=== PATIENT | female | born 1950 | race Caucasian/White ===

== ENCOUNTER → 2016-05-19 | Outpatient (CLI) | payer MEDICARE, BC ==
[~2016-05-19] MED LIST: /ALEN70TA OR; /FEXO60TA OR; /TIOT18INH INH; ALBU17IN INH; ALBU17IN2 INH; ALLE60TA69 PO; ALTA10CA OR; ALTA10CA3 PO; ASPI81TA85 PO; BIOT50004 PO; Cellcept; DULE200A INH; FLUT05CR TOP; FOLI5CAP OR; HYDR-2808 PO; KETO-28 PO; LEVAQUIN PO; LUNE1TAB5 PO; MELA1TAB15 PO; MOME50SP; MULT1TAB9 PO; MYFO360T PO; NAPR500T81 OR; NASONEX; OMEP40CA2 PO; ONDA4TAB6 PO; PRED10TA2 PO; PRED20TA OR; PRED20TA PO; PRED50TA PO; PRIL20CA OR; Plaquenil; RANI1TAB38 PO; SING10TA31 OR; SING10TA32 PO; SPIR1CAP INH; SYMB80AE INH; VICO5TAB PO; VITA-112 PO; VITA400C97 PO; ZANT300T OR; ZANTTAB PO; ZETI10TA2 PO; [UNRECOGNIZED DRUG - CODE] PO
[2016-05-19 12:28] LABS: MEAN CORPUSCULAR HEMOGLOBIN 26.1 pg (27.0-33.0); MEAN CORPUSCULAR HGB CONC 34.1 g/dl (32.0-36.5); MEAN CORPUSCULAR VOLUME 76.6 fl (80.0-96.0); RED CELL DISTRIBUTION WIDTH 14.2 % (11.5-14.5)
[2016-05-19 12:39] LABS: INR 0.95
[2016-05-19 13:20] LABS: ALBUMIN 3.6 GM/DL (3.2-5.2); ALKALINE PHOSPHATASE 138 U/L (45-117); ALT/SGPT 24 U/L (12-78); ANION GAP 9 MEQ/L (8-16); AST/SGOT 16 U/L (15-37); BILIRUBIN,TOTAL 0.3 MG/DL (0.2-1.0); BLOOD UREA NITROGEN 7 MG/DL (7-18); CALCIUM LEVEL 8.8 MG/DL (8.8-10.2); CARBON DIOXIDE LEVEL 26 MEQ/L (21-32); CHLORIDE LEVEL 100 MEQ/L (98-107); CREATININE FOR GFR 0.61 MG/DL (0.55-1.02); GLOMERULAR FILTRATION RATE > 60.0 (>45); GLUCOSE, FASTING 111 MG/DL (80-110); POTASSIUM SERUM 4.3 MEQ/L (3.5-5.1); SODIUM LEVEL 135 MEQ/L (136-145); TOTAL PROTEIN 7.2 GM/DL (6.4-8.2)
== END ==
LOC: M ADMPAT 10:37
PROVIDERS: ATTEND Orthopaedic Surgery
DX: M12.862 Other specific arthropathies, not elsewhere classified, left knee (principal); Z79.01 Long term (current) use of anticoagulants; Z79.899 Other long term (current) drug therapy; Z01.818 Encounter for other preprocedural examination

== ENCOUNTER 2016-06-02 08:41 | Inpatient (IN) | payer MEDICARE, BC ==
--- NOTE | 2016-05-30 11:15 | HPE ---
DATE OF SCHEDULED ADMISSION: 06/02/2016 ATTENDING PHYSICIAN: Jagruti Olivares MD CHIEF COMPLAINT: Left knee pain and stiffness. HISTORY: Eri is a pleasant, 65-year-old female with progressively worsening left knee pain and stiffness. She has failed to improve with conservative management. She has elected for surgery for her continued symptoms with weight bearing activities and activities of daily living. She has consented for a left total knee arthroplasty by Dr. Aguiar. Medical optimization pending with Dr. Sahu. It is not present for review today. CURRENT MEDICATIONS: - Skelaxin 800 mg - voltaren 1% gel - Lunesta 1 mg daily - Rapamune 1 mg daily - Zetia 10 mg daily - Altace 10 mg daily - ranitidine 300 mg daily - Sherrie 60 mg twice daily - Singulair 10 mg daily - Flonase - albuterol as needed - Premarin 0.625 mg - Metrogel - Zofran as needed ALLERGIES: AUGMENTIN, CEFTIN, TRIAMOX, PLAQUENIL, STATIN DRUGS. MEDICAL HISTORY: 1. Hypertension. 2. Hyperlipidemia 3. Lupus. 4. Asthma. 5. Allergies. SURGICAL HISTORY: Biopsies times two. SOCIAL HISTORY: Patient does live on own. Rarely consumes alcohol. She is a former smoker. Quit greater than 30 years ago. REVIEW OF SYSTEMS: Patient denies fevers, chills, nausea, vomiting or diarrhea. She denies any chest pain, shortness of breath or cough. She does have some nasal congestion from her seasonal allergies. No current urinary tract infection symptoms. She does have persistent pain in the left knee with weightbearing activities. EXAMINATION: Well-nourished, well-developed, female, in no apparent distress. She does walking with a mild limp. Inspection of the right knee reveal no erythema, edema, or ecchymosis. Her skin is intact. Patient is able to extend knee to about 0 degrees and flex to about 100 degrees. No hip irritability was elicited with range of motion. Her left lower extremity strength is 5/5. Her calf is soft, nontender to palpation with no palpable cords noted. Distally, she is neurovascularly intact. Neck: Supple without lymphadenopathy or jugular venous distention. Lungs: Clear to auscultation bilaterally, without rales or wheezes. Heart: Regular rate and rhythm. Abdomen: Bowel sounds are present. Vital Signs: Height 5 feet 2 inches. Weight 179 pounds. Temperature 97.9. Blood pressure 134/70. Heart rate 76. Respiratory rate 16. LABORATORY DATA: Chest x-ray shows no acute cardiopulmonary process. EKG shows a normal sinus rhythm. Her urinalysis is negative with the urine culture showing no growth of clinical significance. Her complete blood count: WBC 8, RBC slightly elevated at 5.6, hemoglobin 14.6, hematocrit 42.9, platelet count 399. Erythrocyte sedimentation rate 21. Prothrombin time 12.8. INR 0.95. Nasal and sinus culture showed normal chen. Comprehensive metabolic panel: Slightly elevated fasting glucose at 111, BUN 7, creatinine 0.61, GFR greater than 60, sodium slightly decreased at 135, potassium 4.3, chloride 100, carbon dioxide 26, anion gap 9, calcium 8.8, AST 16, ALT 24, alkaline phosphatase slightly elevated at 138, total bilirubin 0.3, total protein 7.2, albumin 3.6, albumin globulin ratio 1.00. DIAGNOSIS: Symptomatic osteoarthritis of the left knee with x-ray notable for end stage degenerative changes with bone on bone in the medial compartment. PLAN: Patient has consented for a left total knee arthroplasty by Dr. Aguiar. CHAYA
--- NOTE | 2016-05-30 16:17 | CR ---
DATE OF CONSULTATION: 05/30/2016 PREOPERATIVE EVALUATION AND CONSULTATION CONSULTING PHYSICIAN: Dr. Patricio Sahu REQUESTING PHYSICIAN: Dr. Chino Aguiar PROPOSED SURGERY: Left total knee replacement to be completed at [facility] on 06/02/2016. The patient notes that in general she is doing well overall without any new issues or concerns. It is notable that the patient does have a history of asthma and allergies and will need to be monitored closely. She does not snore; however, has had an EGD recently and was noted to be normal. She does need daily MiraLAX because of constipation. She has stopped her CellCept and Rapamune medications for her lupus and has been in consultation with her is/it project manager regarding this. She had preoperative laboratories, that we have discussed, as well as an EKG and chest x-ray, which were completed on 01/17/2016 and reviewed. The patient is now in physical therapy (PT) strengthening her legs and is doing well. She has no history of any cardiac concerns, none in the past or presently. Respiratory issues as noted. No issues with anesthesia in the past. PAST MEDICAL HISTORY: 1. Lupus, sees rheumatology. On significant immunosuppressive medications. 2. Hypertension. 3. Gastroesophageal reflux disease (GERD). 4. Allergic rhinitis. 5. History of asthma where at one point she needed prednisone, but is doing well at this point. 6. Hyperlipidemia. 7. Nausea, status post EGD with Dr. Merino on 03/25/2016. 8. Atrophic vaginitis. Follows with Dr. Li. 9. Osteopenia. PAST SURGICAL HISTORY: 1. She had a biopsy on her leg by Dr. Das in 1985. 2. Breast biopsy [place] [address] Ron. 3. Dilatation and curettage age 25 [address] Medina. 4. Blepharoplasty with Dr. Knutson in 2012. ALLERGIES: TRIMOX caused throat swelling and edema. STATINS caused muscle aches. PLAQUENIL caused temporary facial numbness. CEFTIN caused nausea, vomiting and feeling as if she had chills, as did AUGMENTIN. MEDICATIONS: - Zofran 4 mg one every six hours as needed - Prilosec 40 mg by mouth daily - tramadol 50 mg by mouth twice a day as needed for pain - Dulera 200/5 taken two puffs by mouth twice a day - Spiriva 18 mcg one inhalation daily - Singulair 10 mg by mouth at night - Sherrie 50 mg one tablet twice a day - Nasonex 50 mcg two sprays in each nostril twice a day as needed - Ventolin HFA two puffs four times a day as needed - Zantac 300 mg daily - Altace 10 mg by mouth twice a day - Zetia 10 mg daily - Lunesta 1 mg each night as needed for sleep - Premarin vaginally on a weekly basis - Flonase one spray in each nostril - Vicodin one tablet every four hours as needed for pain - allergy injections - CellCept 180 mg two tablets twice a day - Rapamune 1 mg twice a day every other day alternating with daily tablet every other day - Metrogel applied to skin daily FAMILY HISTORY: Father at age 79 of congestive heart failure (CHF). Mother of colon cancer at age 69, she also had rheumatoid arthritis and osteoarthritis severely. She had a sister who at age 16 with rheumatoid arthritis. 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 She is a former smoker, quit at age 34. She lives alone. No children. She has a large extended family. She did smoke about one pack a day for 17 years. She does not use any alcohol. REVIEW OF SYSTEMS: As per history of present illness. Otherwise, ten systems review is negative. PHYSICAL EXAMINATION: VITAL SIGNS: The patient is 178 pounds and is 5 feet 2 inches tall. Blood pressure 126/72. Heart rate 80. GENERAL: No acute distress. Nontoxic. Alert and oriented times three. She is quite pleasant and interactive. HEENT: Pupils are equal, reactive to light and accommodation. Extraocular motions are intact. No lesions of the lid or conjunctivae. Oral cavity and oropharynx are benign. Tympanic membranes are benign, as is the pinna. NECK: Supple without lymphadenopathy or thyromegaly. HEART: Regular rate and rhythm. S1, S2. No appreciable murmurs. LUNGS: Clear to auscultation bilaterally. No rales, rhonchi or wheezes whatsoever. ABDOMEN: Soft, nontender, nondistended. EXTREMITIES: No clubbing, cyanosis or edema. NEUROLOGIC: The patient appears completely intact. PREOPERATIVE LABORATORIES: Include complete blood count (CBC), comprehensive metabolic panel, UA and urine culture, nasal culture, ESR, within normal limits. EKG shows a normal sinus rhythm with isolated Q wave in lead 3 without significance. Chest x-ray shows no acute disease. ASSESSMENT AND PLAN: 1. Preoperative evaluation and consultation. At this point in time, the patient appears to be optimized for surgical intervention. Although she has no signs of asthma exacerbation, she has a history of such and should be monitored closely. She is on a number of medications, which should be continued. She has no other cardiac risk factors. She has a risk for significant constipation and will need daily MiraLAX, as she takes it as an outpatient. If she is using narcotics, she may also need further assistance in having a good bowel movement. It is notable that the patient did stop her Rapamune and CellCept medications in preparation for surgery. She is NOT on aspirin. If I can be of any other assistance, please call me at [phone]. 2. Lupus. The patient is on significant medication but doing well. Will followup with both myself and rheumatology if there are new issues or concerns. She is off her medications for surgery. 3. Hypertension. Good control on present medication. Will continue. 4. Gastroesophageal reflux disease (GERD). Controlled on proton pump inhibitor. We will continue at this point. 5. Allergic rhinitis. Doing well on present medications. 6. Asthma. As noted above, this is a significant risk factor and she should be monitored and her medication should be continued. 7. Hyperlipidemia. Good result on Zetia. Is unable to tolerate statins due to myalgias. 8. Insomnia. Has been using Lunesta, will continue. 9. Rosacea. Has been using Metrogel topically. We will monitor. 10. Atrophic vaginitis. The patient is using Premarin topically with good results. 11. Pain management. The patient is using no regular medications, but will be medicated for any constipation. 12. Chronic intermittent nausea. The patient does use Zofran at home. I expect this will be used as well as necessary. 13. Ongoing care. I will see her as scheduled in four months with CMP, lipids, TSH and CBC; however. Again, she looks forward to surgical intervention and rehabilitation. The above risks and testing were discussed with the patient and she looks forward to surgery.
[~2016-06-02] VITALS: Ht 160 cm; Wt 78.9 kg
[2016-06-02] MEDS ORDERED: VANCOMYCIN HCL 1,000 MG, VIAL MATE ADAPTER 1 EACH in D5W 250 ML IV ONE ×2 (09:00→23:00)
[2016-06-02] MEDS ORDERED: ACETAMINOPHEN 500 MG TAB PO ONE (09:00)
[2016-06-02] MEDS ORDERED: LR 1,000 ML IV SCH ×2 (09:00→14:45)
[2016-06-02] MEDS ORDERED: COUM1TAB17 PO (09:30)
[2016-06-02] MEDS ORDERED: fentaNYL 100 MCG/2 ML INJECTION (J3010) As Ordered ONE ×3 (09:42→10:32)
[2016-06-02] MEDS ORDERED: MIDAZOLAM INJ 2 MG/2 ML VIAL (J2250) As Ordered ONE ×2 (09:42→10:10)
[2016-06-02] MEDS ORDERED: LIDOCAINE 2% INJ 100 MG/5 ML SDV (FOR ANES.) As Ordered ONE (10:12)
[2016-06-02] MEDS ORDERED: PROPOFOL 200 MG/20 ML VIAL As Ordered ONE ×2 (10:13→10:17)
[2016-06-02] MEDS ORDERED: fentaNYL 100 MCG/2 ML INJECTION (J3010) IV ONE (10:15)
[2016-06-02] MEDS ORDERED: MIDAZOLAM INJ 2 MG/2 ML VIAL (J2250) IV SCH (10:30)
[2016-06-02] MEDS ORDERED: EPINEPHrine INJ 1 MG/ML 1ML VIAL/AMP As Ordered ONE (10:32)
[2016-06-02] MEDS ORDERED: TRANEXAMIC ACID 100 MG/ML 10ML VIAL As Ordered ONE (10:32)
[2016-06-02] MEDS ORDERED: ROPIvacaine 0.5% 30 ML INJECTION (J2795) As Ordered ONE (10:32)
[2016-06-02] MEDS ORDERED: ceFAZolin 1GM INJ (J0690) As Ordered ONE (10:32)
[2016-06-02] MEDS ORDERED: BUPIVACAINE HCL 0.5% 10 ML VIAL As Ordered ONE (10:32)
[2016-06-02] MEDS ORDERED: CLINDAMYCIN INJ 900MG/6ML VIAL As Ordered ONE (11:33)
[2016-06-02] MEDS ORDERED: ROPIvacaine 0.5% 30 ML INJECTION (J2795) ONE (12:19)
[2016-06-02] MEDS ORDERED: dexameTHASONE 10 MG/1 ML VIAL PRES.FREE (J1100) ONE (12:19)
[2016-06-02] MEDS ORDERED: fentaNYL 250 MCG/5 ML INJECTION (J3010) As Ordered ONE (12:37)
[2016-06-02] MEDS ORDERED: METOCLOPRAMIDE INJ 10MG/2ML VIAL (J2765) As Ordered ONE (12:44)
[2016-06-02] MEDS ORDERED: dexameTHASONE 4 MG/ML 1ML VIAL (J1100) As Ordered ONE (12:45)
[2016-06-02] MEDS ORDERED: MORPHINE PCA 1MG/ML 100ML CADD As Ordered ONE (14:03)
[2016-06-02] MEDS ORDERED: MORPHINE 10 MG/ML 1ML VIAL As Ordered ONE (14:03)
[2016-06-02] MEDS ORDERED: ONDANSETRON 4MG/2ML VIAL (J2405) As Ordered ONE (14:03)
[2016-06-02] MEDS: MORPHINE 2 MG/ML 1ML SYRINGE IV PRN ×4 (14:08→14:46)
[2016-06-02] MEDS: LR 1,000 ML IV SCH (14:30)
[2016-06-02] MEDS ORDERED: PATIENT IS CURRENTLY ON AN ON-Q PAIN BUSTER PAIN RELIEF SYSTEM XX SCH (14:30)
[2016-06-02] MEDS ORDERED: ACETAMINOPHEN TAB 650MG DOSE (2X325MG) PO PRN (14:30)
[2016-06-02] MEDS ORDERED: FLEET ENEMA PR PRN (14:30)
--- NOTE | 2016-06-02 14:34 | RO ---
DATE OF PROCEDURE: 06/02/2016 PREPROCEDURE DIAGNOSIS: Left knee osteoarthritis. POSTPROCEDURE DIAGNOSIS: Left knee osteoarthritis. PROCEDURE: Left total knee arthroplasty using a size 3 cruciate retaining femoral component, size 3 tibial tray and a 10 mm rotating platform polyethylene insert and a 35 mm polyethylene button. All components were cemented. Prosthesis was made by [employer]. It was a PFC knee. SURGEON: Dr. Jagruti Aguiar GAS METER MECHANIC: Ms. Ciera Sultana ANESTHESIA: Attempted spinal and then general endotracheal anesthesia with left femoral nerve block. DRAINS: One PainBuster. ESTIMATED BLOOD LOSS: Less than 20 mL. SPECIMENS: Joint surface. DESCRIPTION OF PROCEDURE: Antibiotics were given intravenously preoperatively and a successful left femoral nerve block and then finally a general endotracheal tube anesthetic was established. Tourniquet placed on left upper thigh and not inflated. The left lower extremity was prepped and draped in the usual sterile fashion. The leg elevated and after appropriate time out the tourniquet was inflated for a total of 50 minutes. A longitudinal incision was made for a medial parapatellar approach to the knee. Bovie cautery utilized to coagulate crossing vessels. Subperiosteal dissection along the proximal medial portion of the tibia was performed. The patella was everted and the knee flexed. Drill was placed down the center of the femoral canal and then the intramedullary chely and the distal femoral jig was inserted and set at 5 degrees valgus cut for a left knee a 10 mm resection level. The block was pinned in position. The distal femoral cut was performed. AP sizing jig measured between a 3 and a 4. We actually ended up using the 3, 4-in-1 block after pinning the 3-degree external rotation jig. The anterior and posterior chamfer cuts. I then exposed the proximal tibia and used the extramedullary alignment jig to make sure we were parallel to the mechanical axis, referencing off the medial tibial condyle at 4 mm resection level. The block was pinned into position. Secondary check with the extramedullary chely confirmed that we were parallel. The lock was pinned. Distal femoral cut performed. The lamina toll gate keeper was then placed laterally and we performed a completion medial meniscectomy and debridement of the posterior medial osteophytes. The lamina toll gate keeper was then placed medially and we performed a completion lateral meniscectomy and debridement of posterolateral osteophytes. Spacer block fit 10 mm in flexion and extension with excellent stability. Varus and valgus stress testing showed full extension. I then removed the pins and exposed the proximal tibia and sized for a #3 tray, which was pinned, reamed and broached in position, followed by the 10 mm polyethylene trial spacer followed by #3 femoral component. Brought the knee into extension. She had excellent stability again in flexion and extension to varus and valgus stress testing. The patella was everted. We performed the patellar osteotomy, sized for a 35 button, drilled the holes and then the trial prosthesis fit nicely, and the patellofemoral tracking was anatomic. We drilled the lug holes for the femur and then removed all the trial components. Ms. Ciera Sultana then mixed the cement on the back table as I prepared the bony surfaces for cementing with copious amount of pulsatile lavage irrigant solution. She was also critical to the success of the procedure by helping to manipulate the knee, help expose the wound, help to close the wound, and prepare the patient for surgery, amongst many other tasks. We then dried all the bony surfaces thoroughly. Cemented the tibial tray. Removed excess cement and placed the polyethylene. Cemented the femoral component, removed excess cement, and brought the knee into extension. Cemented the patellar component and held it with a clamp until the cement had hardened in extension. We removed the excess cement in the meantime. Then we copiously pulsatile lavage irrigated out the knee joint. Placed the TXA in the joint and let it soak, as we closed the apex of the wound with two #1 PDS sutures. THe medial parapatellar area was closed with a single #1 PDS suture and then a running #1 double arm Stratafix was used to close the capsule. The tourniquet was released. We copiously irrigated between layers, placed the PainBuster catheter and then closed the deep subdermal tissues with interrupted #2-0 PDS sutures, skin was closed with familia and covered by Adaptic and dry sterile bulky dressing. She was then transferred to the recovery room in stable condition. There were no intraoperative complications.
[2016-06-02] MEDS ORDERED: PERCOCET 5MG/325MG TAB PO PRN (14:45)
[2016-06-02] MEDS ORDERED: fentaNYL 100 MCG/2 ML INJECTION (J3010) IV PRN (14:45)
[2016-06-02] MEDS ORDERED: NALBUPHINE HCL 10 MG/ML AMP (J2300) IV PRN (14:45)
[2016-06-02] MEDS ORDERED: ONDANSETRON 4MG/2ML VIAL (J2405) IV PRN ×2 (14:45)
[2016-06-02] MEDS ORDERED: EPIDURAL/PCA KEYS XX PRN (14:45)
[2016-06-02] MEDS ORDERED: METOCLOPRAMIDE INJ 10MG/2ML VIAL (J2765) IV PRN (14:45)
[2016-06-02] MEDS ORDERED: MORPHINE PCA 1MG/ML 100ML CADD IV PRN (14:45)
[2016-06-02] MEDS ORDERED: NALOXONE INJ 0.4 MG/1 ML VIAL (J2310) IV PRN (14:45)
[2016-06-02] MEDS ORDERED: diphenhydrAMINE INJ 50MG/ML VIAL (J1200) IV PRN (14:45)
[2016-06-02] MEDS ORDERED: PROMETHAZINE INJ 25 MG/ML VIAL (J2550) As Ordered ONE (15:44)
[2016-06-02] MEDS ORDERED: PROMETHAZINE INJ 25 MG/ML VIAL (J2550) IV SCH (16:00)
[2016-06-02 16:30] VITALS: BP 152/91
[2016-06-02 17:00] VITALS: BP 159/96
[2016-06-02] MEDS ORDERED: WARFARIN SOD 5 MG TAB PO SCH (17:00)
[2016-06-02 18:00] VITALS: BP 145/82
[2016-06-02 19:00] VITALS: BP 164/83
[2016-06-02 20:00] VITALS: BP 164/75
[2016-06-02] MEDS ORDERED: IPRATROPIUM 0.5MG/ALBUTEROL 2.5MG INH SOL UD 3ML (DUONEB)(J7620) NEB PRN (20:00)
[2016-06-02] MEDS ORDERED: ALBUTEROL 90 MCG/ACT 8GM HFA INHALER INH PRN (20:30)
[2016-06-02] MEDS: SYMBICORT 160/4.5MCG INHALER 6GM INH SCH (20:58)
[2016-06-02] MEDS ORDERED: FLUTICASONE PROP 0.05% NASAL SPRAY 16 GM (FLONASE) SCH (21:00)
[2016-06-02] MEDS: SENOKOT S TAB PO SCH (21:53)
[2016-06-02] MEDS: FEXOFENADINE 60 MG TAB PO SCH (21:54)
[2016-06-02] MEDS: RAMIPRIL 5 MG CAP PO SCH (21:54)
[2016-06-02 23:00] VITALS: BP 167/74
[2016-06-02] MEDS: TEMAZEPAM 15 MG CAP PO SCH (23:21)
[2016-06-03 02:00] VITALS: BP 145/82
[2016-06-03] MEDS: LR 1,000 ML IV SCH (03:00)
[2016-06-03 06:00] VITALS: BP 143/74
--- NOTE | 2016-06-03 06:29 | CR ---
DATE OF CONSULTATION: 06/02/2016 PRIMARY CARE PROVIDER: Dr. Patricio Sahu. IT INVESTMENT/PORTFOLIO MANAGER: Dr. Stone. REASON FOR CONSULTATION: Medical management. HISTORY OF PRESENT ILLNESS: This is a 65-year-old female patient with underlying medical history of lupus, followed by mainspring torque tester, hypertension, gastroesophageal reflux disease (GERD), allergic rhinitis, history of asthma, dyslipidemia, nausea, atrophic vaginitis, osteopenia and constipation who was admitted under orthopedic service status post left total knee replacement for osteoarthritis. Medicine was consulted for medical management. Patient's pain status post surgery reported about 4/5 pain on PRODUCT DESIGN SPECIALIST. Denies any chest pain, pressure, discomfort. Denies any shortness of breath. Denies history of obstructive sleep apnea. PAST MEDICAL HISTORY: Lupus. Hypertension. Gastroesophageal reflux disease (GERD). Allergic rhinitis. Asthma. Dyslipidemia. Nausea, Atrophic vaginitis. Osteopenia. PAST SURGICAL HISTORY: Biopsy on her leg 1985. Breast biopsy 1995. Dilation and curettage (D and C). ALLERGIES: Reported allergy to AMOXICILLIN, CEFUROXIME, CEPHALOSPORIN, CLAVULANIC ACID, HYDROXYCHLOROQUINE, PENICILLIN, PENICILLIN CROSS REACTORS, STATIN. FAMILY HISTORY: Father at age 79 from congestive heart failure. Mother of colon cancer age 69. Also had rheumatoid arthritis, osteoarthritis severe. Sister at age 16 with rheumatoid arthritis. SOCIAL HISTORY: Patient retired teacher. Former smoker. Quit smoking at age 34. Lives alone. No children. Patient did smoke about one pack a day for 17 years. Does not use any alcoholic beverages. REVIEW OF SYSTEMS: Ten point review of system negative except for those mentioned in history of present illness. HOME MEDICATION: - hydrocodone/acetaminophen 5/300 mg half tablet by mouth daily at bedtime - Proventil inhalation as needed - Ventolin inhaler as needed - aspirin 81 mg by mouth daily - Biotin 5000 mcg by mouth daily - Symbicort inhalation twice daily - vitamin D 2000 units by mouth daily - Dulera 205 mcg combination inhalation twice daily - Zetia 10 mg by mouth daily at bedtime - Sherrie 60 mg by mouth twice daily - Fluticasone topical as needed - Lunesta 1 mg by mouth daily at bedtime - melatonin 10 mg by mouth daily at bedtime - Nasonex two sprays intranasal twice daily - Singulair by mouth daily - multivitamin by mouth daily - Naproxen 500 mg by mouth twice daily - Prilosec 20 mg by mouth daily - Zofran 4 mg by mouth daily - prednisone 10 mg by mouth as directed - Ramipril 10 mg by mouth twice daily - Zantac 150 mg by mouth daily - Spiriva inhalation daily - sirolimus 2 mg by mouth daily - vitamin E PHYSICAL EXAMINATION: General: Patient obese, alert and oriented times three, no acute distress. HEENT: Normocephalic, atraumatic. Pulmonary: Bilateral clear to auscultation. Cardiac: Regular rate and rhythm. Normal S1, S2. Abdomen: Soft, nontender, nondistended. Extremities: No clubbing, cyanosis or edema. Dressing clean, dry and intact. Dorsalis pedis and posterior tibial (DPPT) pulses 2+. ASSESSMENT AND PLAN: This is a 65-year-old female with underlying medical history of hypertension, gastroesophageal reflux disease (GERD), allergic rhinitis, asthma, dyslipidemia, chronic nausea, atrophic vaginitis, osteopenia, admitted under orthopedic service for osteoarthritis status post left total knee replacement by Dr. Chino Aguiar. PROBLEMS: 1. Status post left total knee replacement. Perioperative management. Pain regimen. Deep venous thrombosis (DVT) prophylaxis as per orthopedic pain. Patient on Coumadin as per DVT prophylaxis. Bowel regimen has been added. MiraLax as per primary care provider. Senna has also been added. Continue to monitor. Physical therapy as per primary team. 2. Insomnia. Hospital does not carry Lunesta and melatonin. Will add Restoril to see if it works for the patient. 3. Lupus. Patient follows with mainspring torque tester as per primary care provider. Recommending withholding Cellcept and Rapamune. Outpatient followup. 4. Hypertension. Continue home medication. 5. Gastroesophageal reflux disease (GERD). Continue PPI. 6. Allergic rhinitis. Continue home medication. 7. Asthma. DuoNeb as needed. Continue home medication. 8. Dyslipidemia. Continue home medication. 9. Insomnia. Restoril added. Lunesta is not available unless the patient bring it in. 10. Rosacea. Continue home medication. 11. Atrophic vaginitis. Outpatient followup. 12. Nausea. Zofran as needed. 13. Deep venous thrombosis (DVT) prophylaxis. Patient on Coumadin as per primary care provider. DISPOSITION: As per primary team. [id number]
[2016-06-03] MEDS ORDERED: PERCOCET 5MG/325MG TAB PO PRN (06:45)
[2016-06-03 07:05] LABS: MEAN CORPUSCULAR HEMOGLOBIN 25.9 pg (27.0-33.0); MEAN CORPUSCULAR HGB CONC 32.6 g/dl (32.0-36.5); MEAN CORPUSCULAR VOLUME 79.4 fl (80.0-96.0); RED CELL DISTRIBUTION WIDTH 15.5 % (11.5-14.5); WHITE BLOOD COUNT 11.4 K/mm3 (4.0-10.0)
[2016-06-03 07:11] LABS: INR 1.19
[2016-06-03] MEDS: TIOTROPIUM INHALER/CAPSULE (SPIRIVA) INH SCH (07:24)
[2016-06-03] MEDS: SYMBICORT 160/4.5MCG INHALER 6GM INH SCH ×2 (07:24→20:00)
[2016-06-03 07:38] LABS: ANION GAP 9 MEQ/L (8-16); BLOOD UREA NITROGEN 6 MG/DL (7-18); CARBON DIOXIDE LEVEL 27 MEQ/L (21-32); CHLORIDE LEVEL 102 MEQ/L (98-107); CREATININE FOR GFR 0.49 MG/DL (0.55-1.02); GLOMERULAR FILTRATION RATE > 60.0 (>45); GLUCOSE, FASTING 117 MG/DL (80-110); SODIUM LEVEL 138 MEQ/L (136-145)
[2016-06-03] MEDS ORDERED: OMEPRAZOLE 20 MG CAP PO SCH (09:00)
[2016-06-03] MEDS: ONDANSETRON 4 MG TAB (S0181) PO PRN (09:23)
[2016-06-03] MEDS: MIRALAX *UNIT DOSE* 17GM PACKET PO SCH (09:24)
[2016-06-03] MEDS: PERCOCET 5MG/325MG TAB PO PRN ×3 (09:24→23:47)
[2016-06-03] MEDS: RAMIPRIL 5 MG CAP PO SCH ×2 (09:26→20:57)
[2016-06-03] MEDS: FEXOFENADINE 60 MG TAB PO SCH ×2 (09:26→20:58)
[2016-06-03] MEDS: OCUVITE 1 TAB PO SCH (09:27)
[2016-06-03] MEDS: EZETIMIBE 10 MG TAB (ZETIA) PO SCH (09:28)
[2016-06-03] MEDS: SENOKOT S TAB PO SCH ×2 (09:28→20:57)
[2016-06-03] MEDS: MONTELUKAST 10 MG TAB PO SCH (09:28)
[2016-06-03] MEDS: VITAMIN D 1,000 INTERNATIONAL UNITS TABLET PO SCH (09:28)
[2016-06-03] MEDS: VITAMIN E 400 INTERNATIONAL UNITS CAP PO SCH (09:28)
[2016-06-03] MEDS: diphenhydrAMINE 25 MG CAP PO PRN (09:45)
[2016-06-03] MEDS: MOM 30ML SUSPENSION UDC PO SCH (11:00)
[2016-06-03] MEDS: MOMETASONE SCH ×2 (11:34→20:58)
--- NOTE | 2016-06-03 12:06 | REP ---
AP AND LATERAL LEFT KNEE, TWO VIEWS: HISTORY: Knee replacement. The patient is status post left total knee replacement. There is no acute fracture or dislocation. Surgical familia, a small amount of air and drainage tubing are present in the overlying soft tissue. IMPRESSION: The patient is status post left total knee replacement. There is anatomic alignment. Signed by Darrell Gomez MD 06/03/2016 12:13 P
[2016-06-03 14:00] VITALS: BP 140/75
[2016-06-03] MEDS ORDERED: TRANEXAMIC ACID 100 MG/ML 10ML VIAL ONE (15:34)
[2016-06-03] MEDS ORDERED: fentaNYL 100 MCG/2 ML INJECTION (J3010) ONE (15:34)
[2016-06-03] MEDS ORDERED: BUPIVACAINE HCL 0.5% 10 ML VIAL ONE (15:34)
[2016-06-03] MEDS ORDERED: CLINDAMYCIN INJ 900MG/6ML VIAL ONE (15:34)
[2016-06-03] MEDS ORDERED: EPINEPHrine INJ 1 MG/ML 1ML VIAL/AMP ONE (15:34)
[2016-06-03] MEDS ORDERED: ROPIvacaine 0.5% 30 ML INJECTION (J2795) ONE (15:34)
[2016-06-03] MEDS ORDERED: WARFARIN SOD 5 MG TAB PO ONE (17:00)
[2016-06-03] MEDS: TEMAZEPAM 15 MG CAP PO SCH (20:57)
[2016-06-03 22:00] VITALS: BP 160/79
[2016-06-04] MEDS: ONDANSETRON 4 MG TAB (S0181) PO PRN ×4 (04:57→20:54)
[2016-06-04] MEDS: PERCOCET 5MG/325MG TAB PO PRN (04:58)
[2016-06-04 06:00] VITALS: BP 145/83
[2016-06-04 07:25] LABS: MEAN CORPUSCULAR HEMOGLOBIN 26.3 pg (27.0-33.0); MEAN CORPUSCULAR HGB CONC 33.6 g/dl (32.0-36.5); MEAN CORPUSCULAR VOLUME 78.4 fl (80.0-96.0); RED CELL DISTRIBUTION WIDTH 14.3 % (11.5-14.5); WHITE BLOOD COUNT 11.8 K/mm3 (4.0-10.0)
[2016-06-04 07:26] LABS: INR 1.95
[2016-06-04 07:54] LABS: ANION GAP 10 MEQ/L (8-16); BLOOD UREA NITROGEN 7 MG/DL (7-18); CALCIUM LEVEL 8.1 MG/DL (8.8-10.2); CARBON DIOXIDE LEVEL 26 MEQ/L (21-32); CHLORIDE LEVEL 98 MEQ/L (98-107); CREATININE FOR GFR 0.61 MG/DL (0.55-1.02); GLOMERULAR FILTRATION RATE > 60.0 (>45); GLUCOSE, FASTING 115 MG/DL (80-110); SODIUM LEVEL 134 MEQ/L (136-145)
[2016-06-04] MEDS ORDERED: traMADol 50 MG TAB PO PRN (08:00)
[2016-06-04] MEDS: TIOTROPIUM INHALER/CAPSULE (SPIRIVA) INH SCH (08:07)
[2016-06-04] MEDS: SYMBICORT 160/4.5MCG INHALER 6GM INH SCH ×2 (08:08→21:27)
[2016-06-04] MEDS ORDERED: PANTOPRAZOLE 40MG INJ (PROTONIX) (C9113) IV SCH (09:00)
[2016-06-04] MEDS: traMADol 50 MG TAB PO PRN ×3 (09:15→23:38)
[2016-06-04] MEDS: VITAMIN D 1,000 INTERNATIONAL UNITS TABLET PO SCH (09:58)
[2016-06-04] MEDS: MOM 30ML SUSPENSION UDC PO SCH (09:58)
[2016-06-04] MEDS: OCUVITE 1 TAB PO SCH (09:59)
[2016-06-04] MEDS: EZETIMIBE 10 MG TAB (ZETIA) PO SCH (09:59)
[2016-06-04] MEDS: FEXOFENADINE 60 MG TAB PO SCH ×2 (09:59→20:54)
[2016-06-04] MEDS: RAMIPRIL 5 MG CAP PO SCH ×2 (09:59→20:54)
[2016-06-04] MEDS: SENOKOT S TAB PO SCH ×2 (09:59→20:55)
[2016-06-04] MEDS: VITAMIN E 400 INTERNATIONAL UNITS CAP PO SCH (09:59)
[2016-06-04] MEDS: MOMETASONE SCH ×2 (10:00→20:55)
[2016-06-04] MEDS: MIRALAX *UNIT DOSE* 17GM PACKET PO SCH (10:00)
[2016-06-04] MEDS: MONTELUKAST 10 MG TAB PO SCH (10:00)
[2016-06-04] MEDS: PANTOPRAZOLE 40MG TAB (PROTONIX) PO SCH (10:46)
[2016-06-04 14:00] VITALS: BP 159/76
[2016-06-04] MEDS ORDERED: WARFARIN SOD 1 MG TAB PO ONE ×2 (17:00)
[2016-06-04] MEDS: TEMAZEPAM 15 MG CAP PO SCH (20:54)
[2016-06-04 22:00] VITALS: BP 155/85
[2016-06-05] MEDS: diphenhydrAMINE 25 MG CAP PO PRN (02:10)
[2016-06-05 06:00] VITALS: BP 142/85
[2016-06-05] MEDS: traMADol 50 MG TAB PO PRN (06:00)
[2016-06-05] MEDS: ONDANSETRON 4 MG TAB (S0181) PO PRN (06:00)
[2016-06-05 06:54] LABS: MEAN CORPUSCULAR HEMOGLOBIN 26.2 pg (27.0-33.0); MEAN CORPUSCULAR HGB CONC 32.9 g/dl (32.0-36.5); MEAN CORPUSCULAR VOLUME 79.4 fl (80.0-96.0); RED CELL DISTRIBUTION WIDTH 15.5 % (11.5-14.5); WHITE BLOOD COUNT 11.9 K/mm3 (4.0-10.0)
[2016-06-05 07:06] LABS: INR 1.8
[2016-06-05] MEDS: TIOTROPIUM INHALER/CAPSULE (SPIRIVA) INH SCH (07:06)
[2016-06-05] MEDS: SYMBICORT 160/4.5MCG INHALER 6GM INH SCH (07:06)
[2016-06-05] MEDS ORDERED: COUM2.5T11 PO (07:52)
[2016-06-05] MEDS ORDERED: TRAM50TA2 PO (07:52)
[2016-06-05 07:54] LABS: ANION GAP 9 MEQ/L (8-16); BLOOD UREA NITROGEN 5 MG/DL (7-18); CARBON DIOXIDE LEVEL 27 MEQ/L (21-32); CHLORIDE LEVEL 99 MEQ/L (98-107); GLOMERULAR FILTRATION RATE > 60.0 (>45); GLUCOSE, FASTING 137 MG/DL (80-110); POTASSIUM SERUM 3.5 MEQ/L (3.5-5.1); SODIUM LEVEL 135 MEQ/L (136-145)
[2016-06-05] MEDS: MOMETASONE SCH (08:21)
[2016-06-05 08:22] VITALS: BP 142/85
[2016-06-05] MEDS: OCUVITE 1 TAB PO SCH (08:22)
[2016-06-05] MEDS: VITAMIN E 400 INTERNATIONAL UNITS CAP PO SCH (08:22)
[2016-06-05] MEDS: VITAMIN D 1,000 INTERNATIONAL UNITS TABLET PO SCH (08:22)
[2016-06-05] MEDS: MONTELUKAST 10 MG TAB PO SCH (08:22)
[2016-06-05] MEDS: EZETIMIBE 10 MG TAB (ZETIA) PO SCH (08:22)
[2016-06-05] MEDS: PANTOPRAZOLE 40MG TAB (PROTONIX) PO SCH (08:22)
[2016-06-05] MEDS: RAMIPRIL 5 MG CAP PO SCH (08:22)
[2016-06-05] MEDS: MOM 30ML SUSPENSION UDC PO SCH (08:23)
[2016-06-05] MEDS: MIRALAX *UNIT DOSE* 17GM PACKET PO SCH (08:23)
[2016-06-05] MEDS: FEXOFENADINE 60 MG TAB PO SCH (08:23)
[2016-06-05] MEDS: SENOKOT S TAB PO SCH (08:23)
== END 2016-06-05 09:04 | DRG 470 ==
LOC: M OR 08:41 → M MS5PR 16:30
PROVIDERS: ADMIT Orthopaedic Surgery; ATTEND Orthopaedic Surgery
PROC: 0SRD0J9 Replacement of Left Knee Joint with Synthetic Substitute, Cemented, Open Approach (ICD-10-PCS; principal; 2016-06-02 10:10)
DX: M17.12 Unilateral primary osteoarthritis, left knee (principal); I10 Essential (primary) hypertension; E78.5 Hyperlipidemia, unspecified; J45.909 Unspecified asthma, uncomplicated; M32.9 Systemic lupus erythematosus, unspecified; K59.00 Constipation, unspecified; R11.0 Nausea; K21.9 Gastro-esophageal reflux disease without esophagitis; G47.00 Insomnia, unspecified; M85.80 Other specified disorders of bone density and structure, unspecified site; L71.9 Rosacea, unspecified; N95.2 Postmenopausal atrophic vaginitis; Z88.1 Allergy status to other antibiotic agents; Z88.8 Allergy status to other drugs, medicaments and biological substances; Z79.899 Other long term (current) drug therapy; Z87.891 Personal history of nicotine dependence

== ENCOUNTER → 2016-06-09 | Outpatient (REF) | payer BC, MEDICARE ==
[~2016-06-09] MED LIST changes: +COUM1TAB17 PO; +COUM2.5T11 PO; +TRAM50TA2 PO
[2016-06-09 12:16] LABS: INR 1.91
[2016-06-09 12:22] LABS: ANION GAP 12 MEQ/L (8-16); BLOOD UREA NITROGEN 7 MG/DL (7-18); CALCIUM LEVEL 8.9 MG/DL (8.8-10.2); CARBON DIOXIDE LEVEL 26 MEQ/L (21-32); CHLORIDE LEVEL 99 MEQ/L (98-107); CREATININE FOR GFR 0.56 MG/DL (0.55-1.02); GLOMERULAR FILTRATION RATE > 60.0 (>45); GLUCOSE, FASTING 114 MG/DL (80-110); POTASSIUM SERUM 3.6 MEQ/L (3.5-5.1); SODIUM LEVEL 137 MEQ/L (136-145)
== END ==
PROVIDERS: ATTEND Internal Medicine
DX: Z79.01 Long term (current) use of anticoagulants (principal)

== ENCOUNTER → 2016-06-10 | Outpatient (REF) ==
[2016-06-10 10:55] LABS: MEAN CORPUSCULAR HGB CONC 33.1 g/dl (32.0-36.5); MEAN CORPUSCULAR VOLUME 81.6 fl (80.0-96.0); RED CELL DISTRIBUTION WIDTH 15.7 % (11.5-14.5)
== END ==
PROVIDERS: ATTEND Internal Medicine
DX: I10 Essential (primary) hypertension (principal)

== ENCOUNTER → 2016-06-11 | Outpatient (REF) | payer MEDICARE, BC ==
[2016-06-11 14:42] LABS: MEAN CORPUSCULAR HEMOGLOBIN 26.1 pg (27.0-33.0); MEAN CORPUSCULAR HGB CONC 32.6 g/dl (32.0-36.5); MEAN CORPUSCULAR VOLUME 80.2 fl (80.0-96.0); RED CELL DISTRIBUTION WIDTH 15.9 % (11.5-14.5); WHITE BLOOD COUNT 11.7 K/mm3 (4.0-10.0)
== END ==
PROVIDERS: ATTEND Internal Medicine
DX: I10 Essential (primary) hypertension (principal)

== ENCOUNTER → 2016-06-16 | Outpatient (REF) ==
[2016-06-16 15:23] LABS: INR 1.51
== END ==
PROVIDERS: ATTEND Internal Medicine
DX: Z51.81 Encounter for therapeutic drug level monitoring (principal); Z79.01 Long term (current) use of anticoagulants

== ENCOUNTER → 2016-06-17 | Outpatient (REF) ==
[2016-06-17 12:46] LABS: INR 1.45
== END ==
PROVIDERS: ATTEND Internal Medicine
DX: Z00.00 Encounter for general adult medical examination without abnormal findings (principal)

== ENCOUNTER → 2016-10-29 | Outpatient (REF) | payer MEDICARE, BC | LOC: M LAB REF 16:26 | PROVIDERS: ATTEND Physician Assistant | DX: R30.0 Dysuria (principal) ==

== ENCOUNTER → 2016-12-05 | Outpatient (REF) | payer MEDICARE, BC ==
[~2016-12-05] MED LIST changes: -ALTA10CA3 PO; +ALTA1CAP4 PO; -COUM2.5T11 PO; +COUM2.5T17 PO; -ZETI10TA2 PO; +ZETI10TA30 PO
== END ==
LOC: M LAB REF 16:25
PROVIDERS: ATTEND Physician Assistant Medical
DX: N39.0 Urinary tract infection, site not specified (principal)

== ENCOUNTER → 2016-12-19 | Outpatient (REF) | payer MEDICARE, BC | LOC: M LAB REF 13:05 | PROVIDERS: ATTEND Nurse Practitioner Family | DX: N95.2 Postmenopausal atrophic vaginitis (principal); Z79.899 Other long term (current) drug therapy ==

== ENCOUNTER → 2017-02-24 | Outpatient (REF) | payer MEDICARE, BC | LOC: M LABDRAW1 13:13 | PROVIDERS: ATTEND Nurse Practitioner Family | DX: C50.911 Malignant neoplasm of unspecified site of right female breast (principal) ==

== ENCOUNTER → 2017-02-27 | Outpatient (CLI) | payer MEDICARE, BC ==
[2017-03-04 14:22] LABS: ENDOMYSIAL ABY IgA Negative (Negative); F002-IgE Milk < 0.10 kU/L (Class 0); F004-IgE Wheat < 0.10 kU/L (Class 0); F013-IgE Peanut < 0.10 kU/L (Class 0); F014-IgE Soybean < 0.10 kU/L (Class 0); F026-IgE Pork < 0.10 kU/L (Class 0); F027-IgE Beef < 0.10 kU/L (Class 0); F245-IgE Egg, Whole < 0.10 kU/L (Class 0); FX02-IgE Food Mix (Sea Foods) Negative (.); TISSUE TRANSGLUTAMINASE IgG <2 U/mL (0-5)
== END ==
LOC: M LAB 13:52
PROVIDERS: ATTEND Internal Medicine Gastroenterology
DX: R10.84 Generalized abdominal pain (principal); R14.3 Flatulence; R63.4 Abnormal weight loss; K59.00 Constipation, unspecified; Z88.8 Allergy status to other drugs, medicaments and biological substances

== ENCOUNTER → 2017-05-19 | Outpatient (CLI) | payer MEDICARE, BC | LOC: M ONCR 09:08 | DX: C50.911 Malignant neoplasm of unspecified site of right female breast (principal); M32.9 Systemic lupus erythematosus, unspecified | CPT/HCPCS: G0463 ==

== ENCOUNTER 2017-06-08 10:23 | Outpatient (RCR) | payer MEDICARE, BC | END 2017-06-10 | LOC: M PT 10:23 | DX: Z51.89 Encounter for other specified aftercare (principal); N64.89 Other specified disorders of breast | CPT/HCPCS: 97140 ==

== ENCOUNTER 2017-06-15 10:41 | Outpatient (RCR) | payer MEDICARE, BC | END 2017-07-08 | LOC: M PT 10:41 | DX: Z51.89 Encounter for other specified aftercare (principal); N64.89 Other specified disorders of breast | CPT/HCPCS: 97140 ==

== ENCOUNTER 2017-07-10 09:48 | Outpatient (RCR) | payer MEDICARE, BC | END 2017-08-08 | LOC: M PT 09:48 | DX: Z51.89 Encounter for other specified aftercare (principal); N64.89 Other specified disorders of breast; C50.919 Malignant neoplasm of unspecified site of unspecified female breast | CPT/HCPCS: 97140 ==

== ENCOUNTER → 2017-08-06 | Outpatient (CLI) | payer MEDICARE, BC ==
[2017-08-06 12:11] LABS: APPEARANCE, URINE HAZY (CLEAR); BACTERIA, URINE AUTO NEGATIVE (NEGATIVE); BILIRUBIN, URINE AUTO NEGATIVE (NEGATIVE); BLOOD, URINE BLOOD NEGATIVE (NEGATIVE); COLOR, URINE YELLOW (YELLOW); GLUCOSE, URINE (UA) AUTO NEGATIVE (NEGATIVE); KETONE, URINE AUTO TRACE mg/dL (NEGATIVE); LEUKOCYTE ESTERASE, URINE AUTO NEGATIVE (NEGATIVE); NITRITE, URINE AUTO NEGATIVE (NEGATIVE); PROTEIN, URINE AUTO NEGATIVE (NEGATIVE); RBC, URINE AUTO 0 /HPF (0-3); SPECIFIC GRAVITY URINE AUTO 1.014 (1.002-1.035); SQUAMOUS EPITHELIAL CELL UR AU 3 /HPF (0-6); UROBILINOGEN, URINE AUTO 0.2 mg/dL (0.0-2.0); WBC, URINE AUTO 0 /HPF (0-3)
[2017-08-06 12:13] LABS: HEMATOCRIT 44.3 % (36.0-47.0); HEMOGLOBIN 14.3 g/dl (12.0-15.5); MEAN CORPUSCULAR HGB CONC 32.3 g/dl (32.0-36.5); MEAN CORPUSCULAR VOLUME 77.4 fl (80.0-96.0); PLATELET COUNT, AUTOMATED 373 10^3/uL (150-450); RED BLOOD COUNT 5.72 10^6/uL (4.00-5.40); RED CELL DISTRIBUTION WIDTH 15.2 % (11.5-14.5); WHITE BLOOD COUNT 11.1 10^3/uL (4.0-10.0)
[2017-08-06 12:19] LABS: INR 0.89; PROTHROMBIN TIME 12.1 SECONDS (12.4-14.5)
[2017-08-06 12:36] LABS: ALBUMIN 3.4 GM/DL (3.2-5.2); ALBUMIN/GLOBULIN RATIO 0.92 (1.00-1.93); ALKALINE PHOSPHATASE 122 U/L (45-117); ALT/SGPT 21 U/L (12-78); ANION GAP 6 MEQ/L (8-16); AST/SGOT 18 U/L (7-37); BILIRUBIN,TOTAL 0.3 MG/DL (0.2-1.0); BLOOD UREA NITROGEN 9 MG/DL (7-18); CALCIUM LEVEL 8.5 MG/DL (8.8-10.2); CARBON DIOXIDE LEVEL 28 MEQ/L (21-32); CHLORIDE LEVEL 102 MEQ/L (98-107); CREATININE FOR GFR 0.65 MG/DL (0.55-1.30); GLOMERULAR FILTRATION RATE > 60.0 (>45); GLUCOSE, FASTING 89 MG/DL (70-100); POTASSIUM SERUM 3.8 MEQ/L (3.5-5.1); SODIUM LEVEL 136 MEQ/L (136-145); TOTAL PROTEIN 7.1 GM/DL (6.4-8.2)
[2017-08-06 12:51] LABS: ERYTHROCYTE SEDIMENTATION RATE 9 mm/hr (0-30)
== END ==
LOC: M ADMPAT 10:20
DX: Z01.818 Encounter for other preprocedural examination (principal); M17.11 Unilateral primary osteoarthritis, right knee; Z79.899 Other long term (current) drug therapy
CPT/HCPCS: 71046

== ENCOUNTER → 2017-08-25 | Outpatient (REF) | payer MEDICARE, BC ==
[2017-08-25 17:23] LABS: BASO # 0.1 10^3/uL (0.0-0.2); BASO % 0.6 % (0.0-1.0); EOS # 0.1 10^3/uL (0.0-0.50); EOS % 1.3 % (0.0-3.0); EOSINOPHIL,TOTAL CALCULATED 100 mm3 (0-740); HEMATOCRIT 43.7 % (36.0-47.0); HEMOGLOBIN 14.3 g/dl (12.0-15.5); LYMPH # 1.8 10^3/uL (1.5-4.5); LYMPH % 22.3 % (24.0-44.0); MEAN CORPUSCULAR HEMOGLOBIN 25.3 pg (27.0-33.0); MEAN CORPUSCULAR HGB CONC 32.7 g/dl (32.0-36.5); MEAN CORPUSCULAR VOLUME 77.3 fl (80.0-96.0); MONO # 0.7 10^3/uL (0.0-0.8); MONO % 8.6 % (0.0-5.0); NEUTROPHILS # 5.4 10^3/uL (1.8-7.7); NEUTROPHILS % 66.2 % (36.0-66.0); PLATELET COUNT, AUTOMATED 386 10^3/uL (150-450); RED BLOOD COUNT 5.65 10^6/uL (4.00-5.40); RED CELL DISTRIBUTION WIDTH 15.2 % (11.5-14.5); WHITE BLOOD COUNT 8.2 10^3/uL (4.0-10.0)
[2017-08-25 18:26] LABS: IMMUNOGLOBULIN E 39.8 IU/ML (<100)
[2017-09-03 00:06] LABS: D001-IgE D pteronyssinus <0.10 kU/L (Class 0); E001-IgE Cat Epith/Dander 1.88 kU/L (Class III); E005-IgE Dog Dander 0.26 kU/L (Class 0/I); G002-IgE Bermuda Grass 0.15 kU/L (Class 0/I); G008-IgE Kentucky Bluegrass 2.05 kU/L (Class III); M001-IgE Penicillium chrysogen < 0.10 kU/L (Class 0); M002 IgE Cladosporium herbaru < 0.10 kU/L (Class 0); M003 IgE Aspergillus fumigatu < 0.10 kU/L (Class 0); M006-IgE Alternaria alternata < 0.10 kU/L (Class 0); T001-IgE Maple/Box Elder < 0.10 kU/L (Class 0); T006-IgE Cedar, Mountain < 0.10 kU/L (Class 0); T007-IgE Oak, White < 0.10 kU/L (Class 0); T008-IgE Elm, American < 0.10 kU/L (Class 0); W001-IgE Ragweed, Short < 0.10 kU/L (Class 0); W009-IgE Plantain, English < 0.10 kU/L (Class 0); W014-IgE Pigweed, Rough < 0.10 kU/L (Class 0); W018-IgE Sheep Sorrel < 0.10 kU/L (Class 0)
== END ==
LOC: M LAB REF 16:56
DX: R06.00 Dyspnea, unspecified (principal); J45.998 Other asthma
CPT/HCPCS: 82785

== ENCOUNTER → 2017-09-01 | Outpatient (CLI) | payer MEDICARE, BC | LOC: M RAD 15:04 | DX: R06.00 Dyspnea, unspecified (principal); N32.9 Bladder disorder, unspecified; Z98.890 Other specified postprocedural states | CPT/HCPCS: 71250 ==

== ENCOUNTER → 2017-12-02 | Outpatient (CLI) | payer MEDICARE, BC | LOC: M RAD 09:51 | DX: R91.8 Other nonspecific abnormal finding of lung field (principal) | CPT/HCPCS: 71250 ==

== ENCOUNTER → 2017-12-09 | Outpatient (REF) | payer MEDICARE, BC ==
[2017-12-09 13:33] LABS: BASO % 0.4 % (0.0-1.0); EOS # 0.1 10^3/uL (0.0-0.50); EOS % 1.5 % (0.0-3.0); HEMATOCRIT 41.1 % (36.0-47.0); HEMOGLOBIN 13.2 g/dl (12.0-15.5); IMMATURE GRANULOCYTE % 0.2 % (0-3.0); LYMPH # 1.2 10^3/uL (1.5-4.5); LYMPH % 26.2 % (24.0-44.0); MEAN CORPUSCULAR HEMOGLOBIN 25.6 pg (27.0-33.0); MEAN CORPUSCULAR HGB CONC 32.1 g/dl (32.0-36.5); MEAN CORPUSCULAR VOLUME 79.8 fl (80.0-96.0); MONO # 0.4 10^3/uL (0.0-0.8); MONO % 9.5 % (0.0-5.0); NEUTROPHILS # 2.8 10^3/uL (1.8-7.7); NEUTROPHILS % 62.2 % (36.0-66.0); PLATELET COUNT, AUTOMATED 280 10^3/uL (150-450); RED BLOOD COUNT 5.15 10^6/uL (4.00-5.40); RED CELL DISTRIBUTION WIDTH 15.2 % (11.5-14.5); WHITE BLOOD COUNT 4.6 10^3/uL (4.0-10.0)
[2017-12-09 13:58] LABS: IMMUNOGLOBULIN E 42.3 IU/ML (<100)
[2017-12-13 00:06] LABS: D001-IgE D pteronyssinus <0.10 kU/L (Class 0); E001-IgE Cat Epith/Dander 3.53 kU/L (Class III); E005-IgE Dog Dander 0.34 kU/L (Class I); G002-IgE Bermuda Grass 0.44 kU/L (Class I); G008-IgE Kentucky Bluegrass 4.51 kU/L (Class IV); M001-IgE Penicillium chrysogen < 0.10 kU/L (Class 0); M002 IgE Cladosporium herbaru < 0.10 kU/L (Class 0); M003 IgE Aspergillus fumigatu < 0.10 kU/L (Class 0); M006-IgE Alternaria alternata < 0.10 kU/L (Class 0); T001-IgE Maple/Box Elder < 0.10 kU/L (Class 0); T003-IgE Common Silver Birch < 0.10 kU/L (Class 0); T006-IgE Cedar, Mountain < 0.10 kU/L (Class 0); T007-IgE Oak, White < 0.10 kU/L (Class 0); T008-IgE Elm, American < 0.10 kU/L (Class 0); T015-IgE Ash, White < 0.10 kU/L (Class 0); T041-IgE Hickory, White < 0.10 kU/L (Class 0); T070-IgE White Mulberry < 0.10 kU/L (Class 0); W001-IgE Ragweed, Short 0.19 kU/L (Class 0/I); W009-IgE Plantain, English < 0.10 kU/L (Class 0); W014-IgE Pigweed, Rough < 0.10 kU/L (Class 0); W018-IgE Sheep Sorrel < 0.10 kU/L (Class 0)
== END ==
LOC: M LAB REF 13:13
DX: J45.40 Moderate persistent asthma, uncomplicated (principal)
CPT/HCPCS: 82785

== ENCOUNTER 2018-01-13 09:13 | Outpatient (RCR) | payer MEDICARE, BC | END 2018-02-07 | LOC: M PT 09:13 | DX: Z51.89 Encounter for other specified aftercare (principal); N64.89 Other specified disorders of breast | CPT/HCPCS: 97162 ==

== ENCOUNTER → 2018-05-18 | Outpatient (REF) | payer MEDICARE, BC ==
[~2018-05-18] MED LIST changes: +ARNU1INH3 PO; +ASPI1TAB PO; +AZIT-12 PO; +AZOP0.2S; +BELV10TA PO; +BRIN1OPH OU; +ESTR62CR PV; +HYDR-3713 PO; +LATA5OPD OP; +LETR2.5T2 PO; +LEVO500T3 PO; +LUNE2TAB23 PO; +METR1GEL4 TOP; +MULTCAP PO; +PANT40TA3 PO; +PROBCAP14 PO; +TAMO20TA8 PO; +VITATAB54 PO; +XALA0.007 OU; +ZOFR4TAB16 PO; +[UNRECOGNIZED DRUG - CODE] SL
== END ==
LOC: M LAB REF 16:59
PROVIDERS: ATTEND Nurse Practitioner Family
DX: N76.0 Acute vaginitis (principal)

== ENCOUNTER 2018-05-26 08:51 | Inpatient (IN) | payer MEDICARE, BC ==
--- NOTE | 2018-05-24 16:46 | HPE ---
DATE OF ADMISSION: 05/26/2018 CHIEF COMPLAINT: Right knee pain. HISTORY OF PRESENT ILLNESS: Eri is a pleasant 67-year-old female with progressively worsening right knee pain and stiffness. She has failed to improve with conservative treatment. She has elected for surgery for her continued symptoms. She has pain with weightbearing activities and her activities of daily living. X-rays of her knee are notable for advanced osteoarthritis of the right knee joint. She has consented for a right total knee arthroplasty by Dr. Chino Aguiar. Medical optimization was performed by Dr. Sahu. ALLERGIES: AUGMENTIN, CEFTIN, CLINDAMYCIN, DICYCLOMINE, PLAQUENIL, TRIMOX, and STATIN DRUGS. The patient is also allergic to REGLAN and LETROZOLE. CURRENT MEDICATIONS: - Dulera 200 mcg two puffs two times a day - Spiriva 18 mcg one capsule one time a day - Singulair 10 mg once a day - Sherrie 60 mg twice a day - Nasonex two puffs two times a day - Proventil 90 mcg inhaler two puffs every four hours as needed - allergy shot one every three weeks - pantoprazole 40 mg two times a day - ranitidine 300 mg as needed - Altace 10 mg two times a day - Lunesta 1 mg at bedtime - Rapamune 2 mg once a day - mycophenolic acid 360 mg twice a day - ezetimibe 10 mg once a day - hydrocodone/acetaminophen 5/325 as needed - ondansetron HCl 4 mg every six hours as needed - Premarin vaginal cream once weekly - fluticasone propionate cream 0.5% as needed - MetroGel - vitamin D3 1000 international units once a day - vitamin E 400 international units once a day - biotin 5000 mg a day - baby aspirin once a day - Belviq 10 mg two times a day - Arnuity Ellipta 200 mcg one inhale by mouth everyday - latanoprost one drop in each eye at night - Azopt one drop in each eye at night PAST MEDICAL HISTORY: 1. High blood pressure. 2. Asthma. 3. Glaucoma. 4. High cholesterol. 5. Lupus. 6. Fibromyalgia. PAST SURGICAL HISTORY: 1. Dilation and curettage. 2. Left knee replacement. 3. Breast biopsies and a lumpectomy. 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 FAMILY HISTORY: Noncontributory. REVIEW OF SYSTEMS: This patient denies chest pain, heart palpitations, cough, wheezing, difficulty breathing and shortness of breath. She denies abdominal pain, nausea, vomiting, diarrhea or constipation. She denies recent upper respiratory infection or urinary tract infection symptoms. She does complain of persistent pain in the right knee and pain with weightbearing activities in her right knee. PHYSICAL EXAMINATION: GENERAL: She is a well-nourished, well-developed, in no acute distress, alert female. She walks with a mild limp favoring her right lower extremity. She is not using assistive devices. VITAL SIGNS: She is 63 inches tall, weighs 155 pounds with a temperature of 97.5, blood pressure 129/79, respirations of 16, and a pulse of 66. NECK: Supple without adenopathy or jugular venous distension. There were no carotid bruits appreciated upon auscultation. LUNGS: Clear to auscultation without rales or wheeze throughout. HEART: Regular rate and rhythm. ABDOMEN: Bowel sounds were present. EXTREMITIES: Examination of the knee revealed intact skin. She had decreased range of motion secondary to pain and stiffness. The limb is neurovascularly intact. LABORATORY DATA: Chest x-ray showed no acute cardiopulmonary disease processes. EKG showed normal sinus rhythm at 82 beats per minute. Glucose 112, BUN 9, creatinine 0.74, sodium 138, potassium 3.7. Prothrombin time 12.7, INR 0.94. CBC showed red cell distribution width of 14.6, otherwise within normal limits. Sedimentation rate was 6. IMPRESSION: Symptomatic osteoarthritis of the right knee joint. PLAN: Consented for a right total knee arthroplasty by Dr. Chino Aguiar.
[2018-05-26] VITALS (7 sets, daily range): BP systolic 130–149; BP diastolic 71–74
[~2018-05-26] VITALS: Ht 157.5 cm; Wt 70.8 kg
[~2018-05-26 08:51] MED LIST changes: -MULTCAP PO; -[UNRECOGNIZED DRUG - CODE] SL
[2018-05-26] MEDS ORDERED: LR 1,000 ML IV ONE (09:15)
[2018-05-26] MEDS ORDERED: MULTCAP PO (09:36)
[2018-05-26] MEDS ORDERED: [UNRECOGNIZED DRUG - CODE] SL (09:36)
[2018-05-26] MEDS ORDERED: VANCOMYCIN HCL 1,000 MG, VIAL MATE ADAPTER 1 EACH in D5W 250 ML IV ONE (10:00)
[2018-05-26] MEDS ORDERED: ACETAMINOPHEN 500 MG TAB PO ONE (10:00)
[2018-05-26] MEDS ORDERED: LIDOCAINE 2% INJ 100 MG/5 ML SDV (FOR ANES.) As Ordered ONE (10:19)
[2018-05-26] MEDS ORDERED: PROPOFOL 200 MG/20 ML VIAL As Ordered ONE ×3 (10:19→13:43)
[2018-05-26] MEDS ORDERED: ONDANSETRON 4MG/2ML VIAL (J2405) As Ordered ONE (10:20)
[2018-05-26] MEDS ORDERED: BUPIVACAINE/DEXTROSE 0.75% 2 ML AMP As Ordered ONE (10:20)
[2018-05-26] MEDS ORDERED: fentaNYL 100 MCG/2 ML INJECTION (J3010) As Ordered ONE ×3 (10:21→14:18)
[2018-05-26] MEDS ORDERED: MIDAZOLAM INJ 2 MG/2 ML VIAL (J2250) As Ordered ONE ×2 (10:21→10:26)
[2018-05-26] MEDS ORDERED: SCOPOLAMINE 1MG TRANSDERMAL PATCH As Ordered ONE (10:24)
[2018-05-26] MEDS ORDERED: SCOPOLAMINE 1MG TRANSDERMAL PATCH TOP ONE (11:00)
[2018-05-26] MEDS ORDERED: EPINEPHrine INJ 1 MG/ML 1ML AMP As Ordered ONE (11:20)
[2018-05-26] MEDS ORDERED: BUPIVACAINE HCL 0.25% 10 ML VIAL As Ordered ONE (11:21)
[2018-05-26] MEDS ORDERED: BUPIVACAINE LIPOSOME/PF 1.3% 20ML VIAL (13.3MG/ML)(EXPAREL)(C9290 PER1MG) As Ordered ONE (11:21)
[2018-05-26] MEDS ORDERED: TRANEXAMIC ACID 100 MG/ML 10ML VIAL As Ordered ONE (11:21)
[2018-05-26] MEDS ORDERED: CLINDAMYCIN INJ 900MG/6ML VIAL As Ordered ONE (11:25)
[2018-05-26] MEDS ORDERED: MIDAZOLAM INJ 2 MG/2 ML VIAL (J2250) IV ONE (12:00)
[2018-05-26] MEDS ORDERED: fentaNYL 100 MCG/2 ML INJECTION (J3010) IV ONE (12:00)
[2018-05-26] MEDS ORDERED: METOCLOPRAMIDE INJ 10MG/2ML VIAL (J2765) As Ordered ONE (12:40)
[2018-05-26] MEDS ORDERED: dexameTHASONE 4 MG/ML 1ML VIAL (J1100) As Ordered ONE (12:40)
[2018-05-26] MEDS ORDERED: MORPHINE 1MG/ML IN 0.9% NACL 100ML IV BAG As Ordered ONE (14:05)
[2018-05-26] MEDS: fentaNYL 100 MCG/2 ML INJECTION (J3010) IV PRN ×2 (14:22→14:27)
[2018-05-26] MEDS ORDERED: LR 1,000 ML IV SCH (14:45)
[2018-05-26] MEDS ORDERED: NALOXONE INJ 0.4 MG/1 ML VIAL (J2310) IV PRN (14:45)
[2018-05-26] MEDS ORDERED: PERCOCET 5MG/325MG TAB PO PRN (14:45)
[2018-05-26] MEDS ORDERED: HYDROMORPHONE HCL 0.5 MG/ 0.5 ML SYRINGE (J1170 PER 1) IV PRN (14:45)
[2018-05-26] MEDS ORDERED: ACETAMINOPHEN TAB 650MG DOSE (2X325MG) PO PRN (14:45)
[2018-05-26] MEDS ORDERED: ONDANSETRON 4MG/2ML VIAL (J2405) IV PRN ×2 (14:45)
[2018-05-26] MEDS ORDERED: NALBUPHINE HCL 10 MG/ML AMP (J2300) IV PRN (14:45)
[2018-05-26] MEDS ORDERED: MORPHINE 1MG/ML IN 0.9% NACL 100ML IV BAG IV PRN (14:45)
[2018-05-26] MEDS ORDERED: diphenhydrAMINE INJ 50MG/ML VIAL (J1200) IV PRN (14:45)
[2018-05-26] MEDS ORDERED: EPIDURAL/PCA KEYS XX PRN (14:45)
[2018-05-26] MEDS ORDERED: FLEET ENEMA PR PRN (14:45)
--- NOTE | 2018-05-26 14:47 | REP ---
AP AND LATERAL RIGHT KNEE, TWO VIEWS: HISTORY: Knee replacement. The patient is status post right total knee replacement. There is no acute fracture or dislocation. Subcutaneous air and surgical familia are present in the overlying soft tissue. IMPRESSION: The patient is status post right total knee replacement. There is anatomic alignment. Electronically Signed by Darrell Gomez MD 05/26/2018 02:50 P
[2018-05-26] MEDS ORDERED: ROPIvacaine 0.5% 30 ML INJECTION (J2795 PER 1MG) ONE (14:50)
[2018-05-26] MEDS ORDERED: LIDOCAINE 1% MDV 20ML VIAL ONE (14:50)
[2018-05-26] MEDS ORDERED: dexameTHASONE 10 MG/1 ML VIAL PRES.FREE (J1100) ONE (14:50)
[2018-05-26] MEDS: LR 1,000 ML IV SCH (15:17)
[2018-05-26] MEDS ORDERED: NORCO, ANEXSIA 5/325MG TABLET (HYDROcodone/ACETAMINOPHEN) PO PRN (16:30)
[2018-05-26] MEDS ORDERED: ONDANSETRON 4 MG TAB (S0181) PO PRN (16:30)
--- NOTE | 2018-05-26 16:45 | CR ---
DATE OF CONSULTATION: 05/26/2018 A 67-year-old female with past medical history of lupus, hypertension, hyperlipidemia, history of left total knee replacement who presents to [facility] for elective right total knee replacement. It was done successfully today by Dr. Aguiar and the reason for medical consultation is postoperative medical management. The patient at this time is doing well. She has no pain at this time. She denies any nausea or abdominal pain. She has no chest pain or shortness of breath or palpitations and only had to use her morphine pump once. PAST MEDICAL HISTORY: 1. Lupus. 2. Hypertension. 3. Gastroesophageal reflux disease (GERD). 4. Allergic rhinitis. 5. Asthma. 6. Hyperlipidemia. 7. Atrophic vaginitis. 8. History of osteopenia. PAST SURGICAL HISTORY: 1. Dilatation and curettage. 2. Left total knee replacement. ALLERGIES: She has drug allergies to AMOXICILLIN, CEFUROXIME, CEPHALOSPORINS, CLAVULANIC ACID, HYDROXYCHLOROQUINE, PENICILLIN, PENICILLIN CROSS REACTORS, and STATINS. FAMILY HISTORY: Noncontributory. SOCIAL HISTORY: The patient was a former smoker and had approximately a 17-pack year history. She quit at age 34. Rarely drinks alcoholic beverages and denies illicit drugs. MEDICATIONS: She takes at home are as follows: - acetaminophen/hydrocodone 5/325 one tablet orally twice daily as needed - Proventil 2 mcg inhaled every four hours as needed - aspirin 81 mg orally daily - Zithromax 250 mg orally daily - Azopt one drop to both eyes daily - colecalciferol 1000 units orally daily - Premarin one dose every two weeks - ezetimibe 10 mg orally at bedtime - latanoprost one drop to both eyes in the evening - Nasonex two sprays in each nostril twice a day - montelukast 10 mg orally daily - Zofran 4 mg orally every six hours as needed - pantoprazole one tablet orally twice daily at 40 mg - ramipril 10 mg orally twice daily - ranitidine 150 mg orally at bedtime - tamoxifen 20 mg orally daily - tiotropium bromide one inhalation daily - vitamin E 400 units orally daily - Arnuity Ellipta one puff daily - Belviq one tablet orally twice daily - biotin 5000 mcg orally daily - Azopt 1% daily - Dulera 200/5 mcg two inhalations twice a day - Lunesta 0.5 tablets orally in the evening as needed - melatonin 10 mg orally daily - multivitamin one tablet orally daily - Myfortic 360 mg orally twice daily - probiotic one tablet orally twice daily - sirolimus 2 mg orally daily REVIEW OF SYSTEMS: Negative for all 10 major systems except what is mentioned in the history of present illness (HPI). VITAL SIGNS: Blood pressure is 149/72, heart rate 68 and regular, respiratory rate 12, temperature 97.6, oxygen saturation is 98% on two liters nasal cannula. Head is normocephalic, atraumatic. Neck is supple with no jugular venous distention (JVD). Lungs are clear to auscultation. S1, S2 audible. No murmurs appreciated. Abdomen is soft. Positive bowel sounds. No pedal edema. On neurologic examination, the patient is awake, alert, and oriented times three. LABORATORY DATA: There are no laboratories to review at this time. IMPRESSION: 1. Right total knee replacement. 2. Hypertension. 3. Diabetes. 4. Hyperlipidemia. PLAN: The patient is at this time clinically stable. We will reconcile her medications and we will leave pain management to the orthopedic physician. At this time, it seem appropriate. The patient is pain free. A complete blood count (CBC) and basic metabolic panel (BMP) will be sent in the morning and will be followed. We will also be following alongside orthopedics during the rest of her hospitalization.
[2018-05-26] MEDS: FLUTICASONE HFA 220 MCG 12 GM INHALER (FLOVENT) INH SCH (21:28)
[2018-05-26] MEDS ORDERED: VANCOMYCIN HCL 1,000 MG, VIAL MATE ADAPTER 1 EACH in D5W 250 ML IV SCH (22:00)
[2018-05-26] MEDS: RAMIPRIL 5 MG CAP PO SCH (22:12)
[2018-05-26] MEDS: LACTOBACILLUS ACIDOPHILUS CAP (BACID) PO SCH (22:12)
[2018-05-26] MEDS: RAMELTEON 8 MG TAB (ROZEREM) PO SCH (22:13)
[2018-05-26] MEDS: PANTOPRAZOLE 40MG TAB (PROTONIX) PO SCH (22:13)
[2018-05-26] MEDS: FLUTICASONE PROP 0.05% NASAL SPRAY 16 GM (FLONASE) SCH (22:14)
[2018-05-26] MEDS: LATANOPROST 0.005% OPHTH SOLN 2.5 ML OU SCH (22:14)
[2018-05-26] MEDS: BRINZOLAMIDE 1 % OPHTH SUSP (AZOPT) 10ML OU SCH (22:14)
[2018-05-26] MEDS: MONTELUKAST 10 MG TAB PO SCH (22:18)
[2018-05-27 02:00] VITALS: BP 99/50
[2018-05-27] MEDS: LR 1,000 ML IV SCH (03:15)
[2018-05-27 05:56] LABS: HEMATOCRIT 34.1 % (36.0-47.0); HEMOGLOBIN 11.2 g/dl (12.0-15.5); MEAN CORPUSCULAR HEMOGLOBIN 27.7 pg (27.0-33.0); MEAN CORPUSCULAR HGB CONC 32.8 g/dl (32.0-36.5); MEAN CORPUSCULAR VOLUME 84.4 fl (80.0-96.0); PLATELET COUNT, AUTOMATED 266 10^3/uL (150-450); RED BLOOD COUNT 4.04 10^6/uL (4.00-5.40); WHITE BLOOD COUNT 10.9 10^3/uL (4.0-10.0)
[2018-05-27] MEDS ORDERED: PERCOCET 5MG/325MG TAB PO PRN (06:00)
[2018-05-27 06:05] LABS: BLOOD UREA NITROGEN 4 MG/DL (7-18); CALCIUM LEVEL 7.5 MG/DL (8.8-10.2); CARBON DIOXIDE LEVEL 26 MEQ/L (21-32); CHLORIDE LEVEL 105 MEQ/L (98-107); CREATININE FOR GFR 0.52 MG/DL (0.55-1.30); GLOMERULAR FILTRATION RATE > 60.0 (>45); GLUCOSE, FASTING 110 MG/DL (70-100); POTASSIUM SERUM 3.9 MEQ/L (3.5-5.1); SODIUM LEVEL 138 MEQ/L (136-145)
[2018-05-27] MEDS: TIOTROPIUM INHALER/CAPSULE (SPIRIVA) INH SCH (07:29)
[2018-05-27] MEDS: FLUTICASONE HFA 220 MCG 12 GM INHALER (FLOVENT) INH SCH ×2 (07:29→20:01)
[2018-05-27] MEDS ORDERED: ALBUTEROL 90 MCG/ACT 8GM HFA INHALER INH PRN (07:30)
[2018-05-27] MEDS ORDERED: DULERA INH SCH (09:00)
[2018-05-27] MEDS ORDERED: SIROLIMUS PO SCH (09:00)
[2018-05-27] MEDS ORDERED: BRINZOLAMIDE 1 % OPHTH SUSP (AZOPT) 10ML OU SCH (09:00)
[2018-05-27 09:30] VITALS: BP 116/57
[2018-05-27] MEDS: MOM 30ML SUSPENSION UDC PO SCH (09:41)
[2018-05-27] MEDS: BRINZOLAMIDE 1 % OPHTH SUSP (AZOPT) 10ML OU SCH ×2 (09:41→20:16)
[2018-05-27] MEDS: MIRALAX *UNIT DOSE* 17GM PACKET PO SCH (09:41)
[2018-05-27] MEDS: LACTOBACILLUS ACIDOPHILUS CAP (BACID) PO SCH ×2 (09:42→20:14)
[2018-05-27] MEDS: MULTIVITAMINS/MINERALS THERAP 1 TAB PO SCH (09:42)
[2018-05-27] MEDS: TAMOXIFEN CITRATE 10 MG TAB PO SCH (09:42)
[2018-05-27] MEDS: PANTOPRAZOLE 40MG TAB (PROTONIX) PO SCH ×2 (09:42→20:14)
[2018-05-27] MEDS: VITAMIN E 400 INTERNATIONAL UNITS CAP PO SCH (09:42)
[2018-05-27] MEDS: ASPIRIN 81 MG ENTERIC TAB PO SCH (09:43)
[2018-05-27] MEDS: SENOKOT S TAB PO SCH ×2 (09:43→20:16)
[2018-05-27] MEDS: PERCOCET 5MG/325MG TAB PO PRN ×3 (09:43→18:22)
[2018-05-27] MEDS: VITAMIN D 1,000 INTERNATIONAL UNITS TABLET PO SCH (09:43)
[2018-05-27] MEDS: EZETIMIBE 10 MG TAB (ZETIA) PO SCH (09:43)
[2018-05-27] MEDS: FLUTICASONE PROP 0.05% NASAL SPRAY 16 GM (FLONASE) SCH ×2 (09:44→20:18)
--- NOTE | 2018-05-27 10:51 | RO ---
DATE OF PROCEDURE: 05/26/2018 PREOPERATIVE DIAGNOSIS: Right knee degenerative arthritis. POSTOPERATIVE DIAGNOSIS: Right knee degenerative arthritis. PROCEDURE: Right total knee arthroplasty using a size 5 cruciate retaining femoral component size 5 tibial tray with a 6 mm rotating platform polyethylene insert, 35 mm polyethylene button. All components were cemented. Prosthesis was made by [employer], it was an Attune knee. SURGEON: Dr. Jagruti Aguiar MANAGER RESTAURANT: Mr. Shamar Escobar ANESTHESIA: Spinal with right femoral nerve block. COMPLICATIONS: None. ESTIMATED BLOOD LOSS: Less than 20 mL. SPECIMENS: Joint surface. PROCEDURE: Antibiotics were given intravenously preoperatively and then a successful right femoral nerve block and then a spinal anesthetic was induced. A tourniquet was placed on the right upper thigh, not inflated. Right lower extremity was then carefully prepped and draped in the usual sterile fashion. The leg was elevated, and after appropriate time out, the tourniquet was then inflated. Then a longitudinal incision was made for a medial parapatellar approach to the knee. Bovie cautery was used to coagulate the crossing vessels. Medial parapatellar arthrotomy was performed. Subperiosteal dissection around the proximal, medial and lateral tibial plateau was performed. The patella was everted and the knee was flexed. Drill was placed down the center of the femoral canal, with a distal femoral cutting jig set at 5 degree valgus cut for a right knee at 9 mm resection level. The AP sizing jig measured for a size 5 femoral component. 3 degrees of external rotation were dialed in, and then the 4 and 1 block applied. Anterior and posterior chamfer cuts were then performed. We then exposed the proximal tibia, used the extramedullary alignment jig to estimate being parallel to the mechanical axis of the tibia, we referenced off the medial tibial condyle at 4 mm. The jig was pinned into position. Secondary check with an extramedullary chely confirmed we appeared to be parallel to the mechanical axis. The proximal tibial osteotomy was performed. We then placed the lamina after school counselor medially and performed a completion lateral meniscectomy and debridement of posterolateral osteophytes. We then placed a lamina after school counselor laterally and performed a completion medial meniscectomy and debridement of posteromedial osteophytes. The 6 mm spacer block fit the best with good symmetry to varus and valgus, AP stress testing. We then exposed the proximal tibia and sized for a #5 tibial tray, which was pinned into position, followed by the reamer and broach, trial tibial component was placed, followed by the trial femoral component. The notch plasty for the femoral component was performed using the jig prior to this. The knee was brought into extension and the patella was everted. The patellar osteotomy was performed, sized for a 35 button. The trial patellar component was placed and patellofemoral tracking was anatomic. We drilled the lug holes for the femur, removed the trial components. I then applied Exparel in the periosteally around the distal femur and the proximal tibia. Mr. Escobar then mixed the cement on the back table as I prepared the bony surfaces for cementing with a copious amount of pulsatile lavage irrigant solution. Mr. Escobar was also critical to the success of this difficult surgery by helping to manipulate the knee, helped with appropriate soft tissue retraction, helped close the wound, helped to prepare the patient and other tasks to allow me to perform the operation smoothly and efficiently. The tibial tray was then cemented. Excess cement was removed. We then placed the polyethylene and cemented the femoral component, removed excess cement, and brought the knee into extension, then cemented the patellar button and held it with a clamp, removed excess cement, and held the knee into extension until the cement hardened. As we were awaiting this, we copiously pulsatile lavage irrigated out the knee joint and then instilled tranexamic acid. We then began closing the arthrotomy with two apex #1 PDS sutures, one in the medial parapatellar area. Then the tourniquet was released. We irrigated once again, closed the deep subdermal tissues with interrupted #2-0 PDS suture, and then the skin was closed with familia, covered by Optifoam dry, sterile bulky dressing. She was then transferred to the recovery room in stable condition. There were no intraoperative complications.
[2018-05-27] MEDS: RAMIPRIL 5 MG CAP PO SCH ×2 (11:52→20:16)
[2018-05-27] MEDS: **UNRESOLVED NON-FORMULARY MED ORDER XX SCH ×2 (13:34→15:11)
[2018-05-27 14:00] VITALS: BP 122/60
[2018-05-27] MEDS: ONDANSETRON 4 MG TAB (S0181) PO PRN ×2 (16:44→21:42)
[2018-05-27] MEDS: RIVAROXABAN 10 MG TAB (XARELTO) PO SCH (17:24)
--- NOTE | 2018-05-27 18:55 | IPN ---
DATE: 05/27/2018 Patient seen and examined. No acute events overnight. Reported right knee pain. Was given pain medication. Status post right total knee replacement by Dr. Chino Aguiar. Patient denies any chest pain, pressure, or discomfort. Denies any shortness of breath. VITAL SIGNS: Temperature 99. Pulse 77, respirations 18, blood pressure 122/60, pulse oximetry 97% on room air. LABORATORY DATA: WBC 10.9, hemoglobin and hematocrit 11.2/34.1, platelets 266. Chemistry: Sodium 138, potassium 3.9, chloride 105, bicarbonate 26, BUN 4, creatinine 0.52. PHYSICAL EXAMINATION: GENERAL: Patient alert, comfortable in no acute distress. HEENT: Normocephalic, atraumatic. PULMONARY: Bilaterally clear. CARDIAC: Regular, S1, S2. ABDOMEN: Soft, nontender. Positive bowel sounds. EXTREMITIES: Right knee wrapping in place. Dorsalis pedis (DP)/posterior tibialis (PT) pulses intact bilaterally. No edema, bilateral lower extremities. ASSESSMENT AND PLAN: This is a 67-year-old female patient with underlying medical history of hypertension, asthma, glaucoma, dyslipidemia, lupus, fibromyalgia, osteoarthritis under orthopedic service, status post right total knee arthroplasty by Dr. Chino Aguiar. 1. Osteoarthritis, status post right total knee arthroplasty by Dr. Chino Aguiar. Weightbearing status, physical therapy, deep vein thrombosis (DVT) prophylaxis, pain regimen as per orthopedics. Patient on Xarelto for DVT prophylaxis. Likely patient will need rehabilitation given home conditions. 2. Hypertension. Continue ramipril. 3. History of lupus. As per patient's primary care provider, hold sirolimus for 1 week, to be restarted in 7 days. Continue other medications. Supportive care. Pain medication as per orthopedics. 4. Asthma. Continue current medication. Patient does not have any wheeze. 5. Dyslipidemia. Continue current medication. 6. Glaucoma. Continue current medication. Patient is instructed to bring in her home eyedrops given that some of her eyedrops are not on formulary. 7. DVT prophylaxis. Patient on Xarelto as per orthopedics. DISPOSITION: Pending physical therapy. Possible rehabilitation. Acute rehabilitation screening order was placed.
[2018-05-27] MEDS: MONTELUKAST 10 MG TAB PO SCH (20:14)
[2018-05-27] MEDS: LATANOPROST 0.005% OPHTH SOLN 2.5 ML OU SCH (20:16)
[2018-05-27] MEDS: RAMELTEON 8 MG TAB (ROZEREM) PO SCH (21:43)
[2018-05-27 22:00] VITALS: BP 126/62
[2018-05-28] MEDS: PERCOCET 5MG/325MG TAB PO PRN (03:18)
[2018-05-28] MEDS: ONDANSETRON 4 MG TAB (S0181) PO PRN ×3 (03:18→21:05)
[2018-05-28 06:00] VITALS: BP 137/74
[2018-05-28 06:30] LABS: HEMATOCRIT 32.9 % (36.0-47.0); HEMOGLOBIN 11.1 g/dl (12.0-15.5); MEAN CORPUSCULAR HEMOGLOBIN 28.7 pg (27.0-33.0); MEAN CORPUSCULAR HGB CONC 33.7 g/dl (32.0-36.5); PLATELET COUNT, AUTOMATED 262 10^3/uL (150-450); RED BLOOD COUNT 3.87 10^6/uL (4.00-5.40); WHITE BLOOD COUNT 14.4 10^3/uL (4.0-10.0)
[2018-05-28] MEDS ORDERED: traMADol 50 MG TAB PO PRN (07:00)
[2018-05-28 07:05] LABS: BLOOD UREA NITROGEN 7 MG/DL (7-18); CALCIUM LEVEL 7.5 MG/DL (8.8-10.2); CARBON DIOXIDE LEVEL 27 MEQ/L (21-32); CHLORIDE LEVEL 100 MEQ/L (98-107); CREATININE FOR GFR 0.54 MG/DL (0.55-1.30); GLOMERULAR FILTRATION RATE > 60.0 (>45); GLUCOSE, FASTING 105 MG/DL (70-100); POTASSIUM SERUM 3.7 MEQ/L (3.5-5.1); SODIUM LEVEL 134 MEQ/L (136-145)
[2018-05-28] MEDS ORDERED: MAALOX 30 ML SUSP *UDC PO PRN (07:15)
[2018-05-28] MEDS: FLUTICASONE HFA 220 MCG 12 GM INHALER (FLOVENT) INH SCH ×2 (07:46→20:34)
[2018-05-28] MEDS: TIOTROPIUM INHALER/CAPSULE (SPIRIVA) INH SCH (07:46)
[2018-05-28] MEDS: MOM 30ML SUSPENSION UDC PO SCH (08:24)
[2018-05-28] MEDS: MIRALAX *UNIT DOSE* 17GM PACKET PO SCH (08:24)
[2018-05-28] MEDS: LACTOBACILLUS ACIDOPHILUS CAP (BACID) PO SCH ×2 (08:25→21:02)
[2018-05-28] MEDS: VITAMIN E 400 INTERNATIONAL UNITS CAP PO SCH (08:25)
[2018-05-28] MEDS: RAMIPRIL 5 MG CAP PO SCH ×2 (08:25→21:02)
[2018-05-28] MEDS: MULTIVITAMINS/MINERALS THERAP 1 TAB PO SCH (08:25)
[2018-05-28] MEDS: SENOKOT S TAB PO SCH ×2 (08:26→21:02)
[2018-05-28] MEDS: ASPIRIN 81 MG ENTERIC TAB PO SCH (08:26)
[2018-05-28] MEDS: TAMOXIFEN CITRATE 10 MG TAB PO SCH (08:26)
[2018-05-28] MEDS: PANTOPRAZOLE 40MG TAB (PROTONIX) PO SCH ×2 (08:26→21:02)
[2018-05-28] MEDS: EZETIMIBE 10 MG TAB (ZETIA) PO SCH (08:26)
[2018-05-28] MEDS: VITAMIN D 1,000 INTERNATIONAL UNITS TABLET PO SCH (08:27)
[2018-05-28] MEDS: ACETAMINOPHEN 500 MG TAB PO SCH ×3 (08:28→21:04)
[2018-05-28] MEDS: AZITHROMYCIN 250 MG TAB PO SCH (08:29)
[2018-05-28] MEDS: FLUTICASONE PROP 0.05% NASAL SPRAY 16 GM (FLONASE) SCH ×2 (08:29→21:05)
[2018-05-28] MEDS: BRINZOLAMIDE 1 % OPHTH SUSP (AZOPT) 10ML OU SCH ×2 (08:40→21:01)
[2018-05-28] MEDS: traMADol 50 MG TAB PO PRN ×3 (08:42→21:03)
[2018-05-28] MEDS: **UNRESOLVED NON-FORMULARY MED ORDER XX SCH (09:00)
[2018-05-28 14:00] VITALS: BP 136/66
[2018-05-28] MEDS: RIVAROXABAN 10 MG TAB (XARELTO) PO SCH (18:38)
--- NOTE | 2018-05-28 19:56 | IPNPDOC ---
Text Note Date of Service The patient was seen on 05/28/18. NOTE Patient seen and examined. No acute events overnight. Reported right knee pain. Was given pain medication. Patient denies any chest pain, pressure, or discomfort. Denies any shortness of breath. working with PT PHYSICAL EXAMINATION: GENERAL: Patient alert, comfortable in no acute distress. HEENT: Normocephalic, atraumatic. PULMONARY: Bilaterally clear. CARDIAC: Regular, S1, S2. ABDOMEN: Soft, nontender. Positive bowel sounds. EXTREMITIES: Right knee dressing with mild dry blood. Dorsalis pedis (DP)/posterior tibialis (PT) pulses intact bilaterally. No edema, bilateral lower extremities. ASSESSMENT AND PLAN: This is a 67-year-old female patient with underlying medical history of hypertension, asthma, glaucoma, dyslipidemia, lupus, fibromyalgia, osteoarthritis under orthopedic service, status post right total knee arthroplasty by Dr. Chino Aguiar. 1. Osteoarthritis, status post right total knee arthroplasty by Dr. Chino Aguiar. Weightbearing status, physical therapy, deep vein thrombosis (DVT) prophylaxis, pain regimen as per orthopedics. Patient on Xarelto for DVT prophylaxis. Likely patient will need rehabilitation given home conditions. 2. Hypertension. Continue ramipril. 3. History of lupus. As per patient's primary care provider, hold sirolimus for 1 week, to be restarted in 7 days. Continue other medications. Supportive care. Pain medication as per orthopedics. 4. Asthma. Continue current medication. Patient does not have any wheeze. 5. Dyslipidemia. Continue current medication. 6. Glaucoma. Continue current medication. Patient is instructed to bring in her home eyedrops given that some of her eyedrops are not on formulary. 7. DVT prophylaxis. Patient on Xarelto as per orthopedics. DISPOSITION: Pending physical therapy. STR VS,Fishbone, I+O VS, Fishbone, I+O Laboratory Tests 05/28/18 05:17 Red Blood Count 3.87 L, Mean Corpuscular Volume 85.0, Mean Corpuscular Hemoglob in 28.7, Mean Corpuscular Hemoglobin Concent 33.7, Red Cell Distribution Width 14.6 H, Calcium Level 7.5 L Vital Signs Date Time Temp Pulse Resp B/P (MAP) Pulse Ox O2 Delivery O2 Flow Rate FiO2 05/28/18 15:30 20 05/28/18 14:55 Room Air 05/28/18 14:00 98.3 69 136/66 (89) 96 05/26/18 22:00 2.0 I&O- Last 24 Hours up to 6 AM 05/28/18 06:00 Intake Total 2280 ml Output Total 3750 ml Balance -1470 ml TRISTIN POLLOCK MD May 28, 2018 19:56
[2018-05-28 21:00] VITALS: O2SAT 96
[2018-05-28] MEDS: LATANOPROST 0.005% OPHTH SOLN 2.5 ML OU SCH (21:01)
[2018-05-28] MEDS: RAMELTEON 8 MG TAB (ROZEREM) PO SCH (21:02)
[2018-05-28] MEDS: MONTELUKAST 10 MG TAB PO SCH (21:02)
[2018-05-28 22:00] VITALS: BP 128/65
[2018-05-29 06:00] VITALS: BP 130/69
[2018-05-29] MEDS: ACETAMINOPHEN 500 MG TAB PO SCH ×3 (06:06→21:43)
[2018-05-29 06:49] LABS: HEMATOCRIT 33.8 % (36.0-47.0); HEMOGLOBIN 11.1 g/dl (12.0-15.5); MEAN CORPUSCULAR HEMOGLOBIN 28.3 pg (27.0-33.0); MEAN CORPUSCULAR HGB CONC 32.8 g/dl (32.0-36.5); MEAN CORPUSCULAR VOLUME 86.2 fl (80.0-96.0); PLATELET COUNT, AUTOMATED 257 10^3/uL (150-450); RED BLOOD COUNT 3.92 10^6/uL (4.00-5.40); WHITE BLOOD COUNT 12.3 10^3/uL (4.0-10.0)
[2018-05-29 07:11] LABS: BLOOD UREA NITROGEN 8 MG/DL (7-18); CALCIUM LEVEL 7.8 MG/DL (8.8-10.2); CARBON DIOXIDE LEVEL 28 MEQ/L (21-32); CHLORIDE LEVEL 100 MEQ/L (98-107); CREATININE FOR GFR 0.58 MG/DL (0.55-1.30); GLOMERULAR FILTRATION RATE > 60.0 (>45); GLUCOSE, FASTING 103 MG/DL (70-100); POTASSIUM SERUM 3.8 MEQ/L (3.5-5.1); SODIUM LEVEL 134 MEQ/L (136-145)
[2018-05-29] MEDS: TIOTROPIUM INHALER/CAPSULE (SPIRIVA) INH SCH (08:46)
[2018-05-29] MEDS: FLUTICASONE HFA 220 MCG 12 GM INHALER (FLOVENT) INH SCH ×2 (08:46→20:43)
[2018-05-29] MEDS: RAMIPRIL 5 MG CAP PO SCH ×2 (08:51→21:41)
[2018-05-29] MEDS: ASPIRIN 81 MG ENTERIC TAB PO SCH (08:51)
[2018-05-29] MEDS: MULTIVITAMINS/MINERALS THERAP 1 TAB PO SCH (08:51)
[2018-05-29] MEDS: EZETIMIBE 10 MG TAB (ZETIA) PO SCH (08:52)
[2018-05-29] MEDS: TAMOXIFEN CITRATE 10 MG TAB PO SCH (08:52)
[2018-05-29] MEDS: VITAMIN D 1,000 INTERNATIONAL UNITS TABLET PO SCH (08:53)
[2018-05-29] MEDS: MOM 30ML SUSPENSION UDC PO SCH (08:53)
[2018-05-29] MEDS: VITAMIN E 400 INTERNATIONAL UNITS CAP PO SCH (08:53)
[2018-05-29] MEDS: LACTOBACILLUS ACIDOPHILUS CAP (BACID) PO SCH ×2 (08:53→21:41)
[2018-05-29] MEDS: SENOKOT S TAB PO SCH ×2 (08:53→21:41)
[2018-05-29] MEDS: PANTOPRAZOLE 40MG TAB (PROTONIX) PO SCH ×2 (08:53→21:41)
[2018-05-29] MEDS: MIRALAX *UNIT DOSE* 17GM PACKET PO SCH (08:53)
[2018-05-29] MEDS: FLUTICASONE PROP 0.05% NASAL SPRAY 16 GM (FLONASE) SCH ×2 (08:54→21:42)
[2018-05-29] MEDS: BRINZOLAMIDE 1 % OPHTH SUSP (AZOPT) 10ML OU SCH ×2 (08:54→21:40)
[2018-05-29] MEDS: **UNRESOLVED NON-FORMULARY MED ORDER XX SCH (08:54)
[2018-05-29] MEDS: ONDANSETRON 4 MG TAB (S0181) PO PRN ×2 (11:11→17:30)
[2018-05-29 13:57] VITALS: O2SAT 92
[2018-05-29 14:00] VITALS: BP 123/61
--- NOTE | 2018-05-29 14:18 | IPN ---
DATE: 05/29/2018 CHIEF COMPLAINT: Postoperative day #3 right total knee arthroplasty performed by Dr. Aguiar. HISTORY OF PRESENT ILLNESS: This 67-year-old female was seen today on the [facility] on 5 Black postoperative day #3 from right total knee arthroplasty. She is doing well. She is mobilizing slowly. She has no concerns or questions. Her right knee has a minimal amount of pain. REVIEW OF SYSTEMS: Negative for any other concerns, fevers, chills, sweats, or any other issues. PHYSICAL EXAMINATION: VITAL SIGNS: This morning temperature was 97.7, blood pressure 130/69, pulse rate 76, 96 to 99% on room air. She is alert and oriented times three. Pleasant affect. In no acute distress. On inspection of her right knee, the dressing is in situ. There is a moderate amount of old blood streaks on the dressing. There is a moderate amount of swelling of her right knee. Palpation revealed some tenderness throughout the knee, but non distally. She had normal sensation throughout the foot in superficial, deep peroneal nerves, as well as saphenous and tibial. Foot was warm and well perfused with a strong tibialis and posterior pulse. She is able to dorsiflex and plantar flex her foot. Active and passive range of motion of the knee was from 0 to 45 degrees . LABORATORY: Results were reviewed. This shows hemoglobin trending from 11.2 two days ago to 11.1 today. White blood cell count is 12.3. Chemistries were essentially normal aside from slightly low sodium of 134. Fasting glucose slightly elevated at 103. ASSESSMENT AND PLAN: This is a 67-year-old female who is postoperative day #3 from right total knee arthroplasty. We have encouraged to mobilize with physical therapy (PT) and occupational therapy (OT). This is the best thing for her. I encouraged some deep breathing as well to prevent any pneumonia. For VTE prophylaxis, she is on Xarelto 10 mg by mouth. We will follow her while she is in the hospital.
[2018-05-29] MEDS ORDERED: PILL CRUSHER/CUTTER 1 EACH XX PRN (17:00)
[2018-05-29] MEDS: RIVAROXABAN 10 MG TAB (XARELTO) PO SCH (17:50)
[2018-05-29] MEDS: NORCO, ANEXSIA 5/325MG TABLET (HYDROcodone/ACETAMINOPHEN) PO PRN (19:39)
--- NOTE | 2018-05-29 19:40 | IPNPDOC ---
Text Note Date of Service The patient was seen on 05/29/18. NOTE Patient seen and examined. No acute events overnight. Reported right knee pain improved. Patient denies any chest pain, pressure, or discomfort. Denies any shortness of breath. working with PT PHYSICAL EXAMINATION: GENERAL: Patient alert, comfortable in no acute distress. HEENT: Normocephalic, atraumatic. PULMONARY: Bilaterally clear. CARDIAC: Regular, S1, S2. ABDOMEN: Soft, nontender. Positive bowel sounds. EXTREMITIES: Right knee dressing with mild dry blood. Dorsalis pedis (DP)/posterior tibialis (PT) pulses intact bilaterally. No edema, bilateral lower extremities. ASSESSMENT AND PLAN: This is a 67-year-old female patient with underlying medical history of hypertension, asthma, glaucoma, dyslipidemia, lupus, fibromyalgia, osteoarthritis under orthopedic service, status post right total knee arthroplasty by Dr. Chino Aguiar. 1. Osteoarthritis, status post right total knee arthroplasty by Dr. Chino Aguiar. Weightbearing status, physical therapy, deep vein thrombosis (DVT) prophylaxis, pain regimen as per orthopedics. Patient on Xarelto for DVT prophylaxis. Likely patient will need rehabilitation given home conditions. 2. Hypertension. Continue ramipril. 3. History of lupus. As per patient's primary care provider, hold sirolimus for 1 week, to be restarted in 7 days. Continue other medications. Supportive care. Pain medication as per orthopedics. 4. Asthma. Continue current medication. Patient does not have any wheeze. 5. Dyslipidemia. Continue current medication. 6. Glaucoma. Continue current medication. Patient is instructed to bring in her home eyedrops given that some of her eyedrops are not on formulary. 7. DVT prophylaxis. Patient on Xarelto as per orthopedics. DISPOSITION: Pending physical therapy. STR VS,Fishbone, I+O VS, Fishbone, I+O Laboratory Tests 05/29/18 06:12 Red Blood Count 3.92 L, Mean Corpuscular Volume 86.2, Mean Corpuscular Hemoglobin 28.3, Mean Corpuscular Hemoglobin Concent 32.8, Red Cell Distribution Width 14.6 H, Calcium Level 7.8 L Vital Signs Date Time Temp Pulse Resp B/P (MAP) Pulse Ox O2 Delivery O2 Flow Rate FiO2 05/29/18 14:00 99.0 71 17 123/61 (81) 97 Room Air 05/28/18 21:00 2.0 I&O- Last 24 Hours up to 6 AM 05/29/18 06:00 Intake Total 1800 ml Output Total 2000 ml Balance -200 ml TRISTIN POLLOCK MD May 29, 2018 19:40
[2018-05-29] MEDS: LATANOPROST 0.005% OPHTH SOLN 2.5 ML OU SCH (21:40)
[2018-05-29] MEDS: LUNESTA 1 MG PO PRN (21:40)
[2018-05-29] MEDS: RAMELTEON 8 MG TAB (ROZEREM) PO SCH (21:41)
[2018-05-29] MEDS: MONTELUKAST 10 MG TAB PO SCH (21:41)
[2018-05-29 22:00] VITALS: BP 157/70
[2018-05-30] MEDS: ACETAMINOPHEN 500 MG TAB PO SCH ×3 (05:22→21:25)
[2018-05-30 06:00] VITALS: BP 135/66
[2018-05-30] MEDS: TIOTROPIUM INHALER/CAPSULE (SPIRIVA) INH SCH (08:07)
[2018-05-30] MEDS: FLUTICASONE HFA 220 MCG 12 GM INHALER (FLOVENT) INH SCH ×2 (08:07→21:09)
[2018-05-30] MEDS: MIRALAX *UNIT DOSE* 17GM PACKET PO SCH (10:03)
[2018-05-30] MEDS: MECLIZINE 12.5 MG TAB PO SCH ×3 (10:03→22:25)
[2018-05-30] MEDS: RAMIPRIL 5 MG CAP PO SCH ×2 (10:03→22:24)
[2018-05-30] MEDS: VITAMIN D 1,000 INTERNATIONAL UNITS TABLET PO SCH (10:03)
[2018-05-30] MEDS: LACTOBACILLUS ACIDOPHILUS CAP (BACID) PO SCH ×2 (10:03→22:25)
[2018-05-30] MEDS: EZETIMIBE 10 MG TAB (ZETIA) PO SCH (10:04)
[2018-05-30] MEDS: NORCO, ANEXSIA 5/325MG TABLET (HYDROcodone/ACETAMINOPHEN) PO PRN ×3 (10:04→22:26)
[2018-05-30] MEDS: VITAMIN E 400 INTERNATIONAL UNITS CAP PO SCH (10:04)
[2018-05-30] MEDS: SENOKOT S TAB PO SCH ×2 (10:04→21:00)
[2018-05-30] MEDS: PANTOPRAZOLE 40MG TAB (PROTONIX) PO SCH ×2 (10:05→22:25)
[2018-05-30] MEDS: TAMOXIFEN CITRATE 10 MG TAB PO SCH (10:05)
[2018-05-30] MEDS: FLUTICASONE PROP 0.05% NASAL SPRAY 16 GM (FLONASE) SCH ×2 (10:05→22:26)
[2018-05-30] MEDS: ASPIRIN 81 MG ENTERIC TAB PO SCH (10:05)
[2018-05-30] MEDS: BRINZOLAMIDE 1 % OPHTH SUSP (AZOPT) 10ML OU SCH ×2 (10:05→22:26)
[2018-05-30] MEDS: **UNRESOLVED NON-FORMULARY MED ORDER XX SCH (10:05)
[2018-05-30] MEDS: MOM 30ML SUSPENSION UDC PO SCH (10:06)
[2018-05-30 14:00] VITALS: BP 131/80
--- NOTE | 2018-05-30 14:18 | IPNPDOC ---
Text Note Date of Service The patient was seen on 05/30/18. NOTE Patient seen and examined. No acute events overnight. Reported right knee pain improved. Patient denies any chest pain, pressure, or discomfort. Denies any shortness of breath. working with PT. reported nausea. PHYSICAL EXAMINATION: GENERAL: Patient alert, comfortable in no acute distress. HEENT: Normocephalic, atraumatic. PULMONARY: Bilaterally clear. CARDIAC: Regular, S1, S2. ABDOMEN: Soft, nontender. Positive bowel sounds. EXTREMITIES: Right knee dressing with mild dry blood. Dorsalis pedis (DP)/posterior tibialis (PT) pulses intact bilaterally. No edema, bilateral lower extremities. ASSESSMENT AND PLAN: This is a 67-year-old female patient with underlying medical history of hypertension, asthma, glaucoma, dyslipidemia, lupus, fibromyalgia, osteoarthritis under orthopedic service, status post right total knee arthroplasty by Dr. Chino Aguiar. 1. Osteoarthritis, status post right total knee arthroplasty by Dr. Chino Aguiar. Weightbearing status, physical therapy, deep vein thrombosis (DVT) prophylaxis, pain regimen as per orthopedics. Patient on Xarelto for DVT prophylaxis. Likely patient will need rehabilitation given home conditions. 2. Hypertension. Continue ramipril. 3. History of lupus. As per patient's primary care provider, hold sirolimus for 1 week, to be restarted in 7 days. Continue other medications. Supportive care. Pain medication as per orthopedics. 4. nausea, 2/2 to pain med vs benign positional vertigo. reported same symptom with last orthopedic surgery. pain medication adjusted. meclizine and vestibular pt. 5. Asthma. Continue current medication. Patient does not have any wheeze. 6. Dyslipidemia. Continue current medication. 7. Glaucoma. Continue current medication. Patient is instructed to bring in her home eyedrops given that some of her eyedrops are not on formulary. 8. DVT prophylaxis. Patient on Xarelto as per orthopedics. DISPOSITION: Pending physical therapy. STR VS,Fishbone, I+O VS, Fishbone, I+O Vital Signs Date Time Temp Pulse Resp B/P (MAP) Pulse Ox O2 Delivery O2 Flow Rate FiO2 05/30/18 10:34 20 05/30/18 10:03 135/66 05/30/18 06:00 97.9 70 97 Room Air 05/29/18 21:00 2.0 I&O- Last 24 Hours up to 6 AM 05/30/18 06:00 Intake Total 1920 ml Output Total 2150 ml Balance -230 ml TRISTIN POLLOCK MD May 30, 2018 14:17
[2018-05-30] MEDS: RIVAROXABAN 10 MG TAB (XARELTO) PO SCH (17:13)
[2018-05-30] MEDS ORDERED: LEVOCETIRIZINE 5 MG PO SCH (21:00)
[2018-05-30] MEDS ORDERED: MULTIVITAMINS/MINERALS THERAP 1 TAB PO SCH (21:00)
[2018-05-30 22:00] VITALS: BP 134/66
[2018-05-30] MEDS: RAMELTEON 8 MG TAB (ROZEREM) PO SCH (22:25)
[2018-05-30] MEDS: LUNESTA 1 MG PO PRN (22:25)
[2018-05-30] MEDS: MONTELUKAST 10 MG TAB PO SCH (22:25)
[2018-05-30] MEDS: LATANOPROST 0.005% OPHTH SOLN 2.5 ML OU SCH (22:26)
[2018-05-31] MEDS: ACETAMINOPHEN 500 MG TAB PO SCH (05:36)
[2018-05-31] MEDS: NORCO, ANEXSIA 5/325MG TABLET (HYDROcodone/ACETAMINOPHEN) PO PRN ×2 (05:36→09:38)
[2018-05-31 06:00] VITALS: BP 137/62
[2018-05-31 06:10] LABS: HEMATOCRIT 34.3 % (36.0-47.0); HEMOGLOBIN 11.3 g/dl (12.0-15.5); MEAN CORPUSCULAR HEMOGLOBIN 28.3 pg (27.0-33.0); MEAN CORPUSCULAR HGB CONC 32.9 g/dl (32.0-36.5); PLATELET COUNT, AUTOMATED 350 10^3/uL (150-450); RED BLOOD COUNT 3.99 10^6/uL (4.00-5.40)
[2018-05-31 06:33] LABS: BLOOD UREA NITROGEN 7 MG/DL (7-18); CALCIUM LEVEL 7.8 MG/DL (8.8-10.2); CARBON DIOXIDE LEVEL 27 MEQ/L (21-32); CHLORIDE LEVEL 103 MEQ/L (98-107); GLOMERULAR FILTRATION RATE > 60.0 (>45); GLUCOSE, FASTING 72 MG/DL (70-100); MAGNESIUM LEVEL 2.1 MG/DL (1.8-2.4); POTASSIUM SERUM 3.4 MEQ/L (3.5-5.1); SODIUM LEVEL 137 MEQ/L (136-145)
[2018-05-31] MEDS ORDERED: POTASSIUM CHLORIDE 10 MEQ SR TABLET PO ONE (07:30)
[2018-05-31] MEDS ORDERED: HYDR-3713 PO (07:45)
[2018-05-31] MEDS ORDERED: XARE10TA PO (07:45)
[2018-05-31] MEDS: TIOTROPIUM INHALER/CAPSULE (SPIRIVA) INH SCH (08:25)
[2018-05-31] MEDS: FLUTICASONE HFA 220 MCG 12 GM INHALER (FLOVENT) INH SCH (08:25)
[2018-05-31] MEDS: SENOKOT S TAB PO SCH (09:00)
[2018-05-31] MEDS: **UNRESOLVED NON-FORMULARY MED ORDER XX SCH (09:00)
[2018-05-31] MEDS: MOM 30ML SUSPENSION UDC PO SCH (09:00)
[2018-05-31] MEDS: AZITHROMYCIN 250 MG TAB PO SCH (09:31)
[2018-05-31] MEDS: MIRALAX *UNIT DOSE* 17GM PACKET PO SCH (09:31)
[2018-05-31] MEDS: PANTOPRAZOLE 40MG TAB (PROTONIX) PO SCH (09:31)
[2018-05-31] MEDS: EZETIMIBE 10 MG TAB (ZETIA) PO SCH (09:31)
[2018-05-31] MEDS: LACTOBACILLUS ACIDOPHILUS CAP (BACID) PO SCH (09:32)
[2018-05-31] MEDS: VITAMIN E 400 INTERNATIONAL UNITS CAP PO SCH (09:32)
[2018-05-31] MEDS: MECLIZINE 12.5 MG TAB PO SCH (09:32)
[2018-05-31] MEDS: VITAMIN D 1,000 INTERNATIONAL UNITS TABLET PO SCH (09:32)
[2018-05-31] MEDS: ASPIRIN 81 MG ENTERIC TAB PO SCH (09:32)
[2018-05-31 09:33] VITALS: BP 134/73
[2018-05-31] MEDS: RAMIPRIL 5 MG CAP PO SCH (09:33)
[2018-05-31] MEDS: FLUTICASONE PROP 0.05% NASAL SPRAY 16 GM (FLONASE) SCH (09:34)
[2018-05-31] MEDS: BRINZOLAMIDE 1 % OPHTH SUSP (AZOPT) 10ML OU SCH (09:38)
[2018-05-31] MEDS: TAMOXIFEN CITRATE 10 MG TAB PO SCH (09:38)
--- NOTE | 2018-05-31 18:30 | IPNPDOC ---
Text Note Date of Service The patient was seen on 05/31/18. NOTE Patient seen and examined. No acute events overnight. Reported right knee pain improved. Patient denies any chest pain, pressure, or discomfort. Denies any shortness of breath. working with PT. reported nausea improved after pain medication decreased PHYSICAL EXAMINATION: GENERAL: Patient alert, comfortable in no acute distress. HEENT: Normocephalic, atraumatic. PULMONARY: Bilaterally clear. CARDIAC: Regular, S1, S2. ABDOMEN: Soft, nontender. Positive bowel sounds. EXTREMITIES: Right knee dressing with mild dry blood. Dorsalis pedis (DP)/posterior tibialis (PT) pulses intact bilaterally. No edema, bilateral lower extremities. ASSESSMENT AND PLAN: This is a 67-year-old female patient with underlying medical history of hypertension, asthma, glaucoma, dyslipidemia, lupus, fibromyalgia, osteoarthritis under orthopedic service, status post right total knee arthroplasty by Dr. Chino Aguiar. 1. Osteoarthritis, status post right total knee arthroplasty by Dr. Chino Aguiar. Weightbearing status, physical therapy, deep vein thrombosis (DVT) prophylaxis, pain regimen as per orthopedics. Patient on Xarelto for DVT prophylaxis. STR 2. Hypertension. Continue ramipril. 3. History of lupus. As per patient's primary care provider, hold sirolimus for 1 week, to be restarted in 7 days. Continue other medications. Supportive care. Pain medication as per orthopedics. 4. nausea, 2/2 to pain med vs benign positional vertigo. reported same symptom with last orthopedic surgery. pain medication adjusted. meclizine and vestibular pt. 5. Asthma. Continue current medication. Patient does not have any wheeze. 6. Dyslipidemia. Continue current medication. 7. Glaucoma. Continue current medication. 8. DVT prophylaxis. Patient on Xarelto as per orthopedics. DISPOSITION: Pending physical therapy. STR today VS,Fishbone, I+O VS, Fishbone, I+O Laboratory Tests 05/31/18 05:21 Red Blood Count 3.99 L, Mean Corpuscular Volume 86.0, Mean Corpuscular Hemoglobin 28.3, Mean Corpuscular Hemoglobin Concent 32.9, Red Cell Distribution Width 14.5, Calcium Level 7.8 L Vital Signs Date Time Temp Pulse Resp B/P (MAP) Pulse Ox O2 Delivery O2 Flow Rate FiO2 05/31/18 09:38 19 05/31/18 09:33 134/73 05/31/18 06:00 98.0 68 98 Room Air 05/30/18 21:00 2.0 I&O- Last 24 Hours up to 6 AM 05/31/18 06:00 Intake Total 1800 ml Output Total 2050 ml Balance -250 ml TRISTIN POLLOCK MD May 31, 2018 18:30
[2018-06-02] MEDS ORDERED: ENTER DRUG NAME HERE (PATIENT'S OWN MED) PO SCH (09:00)
--- NOTE | 2018-06-02 09:45 | DSES ---
DATE OF ADMISSION: 05/26/2018 DATE OF DISCHARGE: 05/31/2018 HISTORY OF PRESENT ILLNESS: This is a pleasant 67-year-old female with continuing symptomatic right knee osteoarthritis. She consented for a right total knee arthroplasty per Dr. Chino Aguiar. Medical optimization per Dr. Sahu. X-rays were consistent with advanced osteoarthritis. OPERATION PERFORMED: Right total knee arthroplast. HOSPITAL COURSE: The patient uneventfully underwent right total knee arthroplasty under spinal with right femoral nerve block on 05/26/18 and was returned to recovery comfortable. Our hospital team felt the patient was ready for discharge on 05/31/18 following instructions were given. Weight bearing as tolerated with walker. Thromboembolic deterrent stockings (TEDS) stockings times 30 days. Anticoagulation per protocol. Percocet as needed for pain. Diet is regular. Optifoam dressing change in 3-4 days time with followup at orthopedic group 12- 14 for wound check, staple removal. Patient is encouraged to contact our office prior to followup with increased pain, redness, drainage, bleeding, fever greater than 101 or further concerns. MTDD
== END 2018-05-31 10:10 | DRG 470 ==
LOC: M OR 08:51 → M MS5PR 15:00
PROVIDERS: ADMIT Orthopaedic Surgery; ATTEND Orthopaedic Surgery
PROC: 0SRC0J9 Replacement of Right Knee Joint with Synthetic Substitute, Cemented, Open Approach (ICD-10-PCS; principal; 2018-05-26 11:25)
DX: M17.11 Unilateral primary osteoarthritis, right knee (principal); J45.20 Mild intermittent asthma, uncomplicated; H40.9 Unspecified glaucoma; E78.00 Pure hypercholesterolemia, unspecified; I10 Essential (primary) hypertension; K21.9 Gastro-esophageal reflux disease without esophagitis; E78.5 Hyperlipidemia, unspecified; N95.2 Postmenopausal atrophic vaginitis; M85.88 Other specified disorders of bone density and structure, other site; H81.10 Benign paroxysmal vertigo, unspecified ear; M79.7 Fibromyalgia; F41.9 Anxiety disorder, unspecified; R11.0 Nausea; M32.9 Systemic lupus erythematosus, unspecified; Z96.652 Presence of left artificial knee joint; Z79.82 Long term (current) use of aspirin; Z79.899 Other long term (current) drug therapy; Z87.891 Personal history of nicotine dependence; Z88.0 Allergy status to penicillin; Z88.1 Allergy status to other antibiotic agents; Z88.8 Allergy status to other drugs, medicaments and biological substances; Z85.3 Personal history of malignant neoplasm of breast

== ENCOUNTER → 2018-06-02 | Outpatient (REF) ==
[~2018-06-02] MED LIST changes: +MULTCAP PO; +XARE10TA PO; +[UNRECOGNIZED DRUG - CODE] SL
[2018-06-02 17:56] LABS: HEMATOCRIT 33.7 % (36.0-47.0); HEMOGLOBIN 10.9 g/dl (12.0-15.5); MEAN CORPUSCULAR HEMOGLOBIN 28.2 pg (27.0-33.0); MEAN CORPUSCULAR HGB CONC 32.3 g/dl (32.0-36.5); MEAN CORPUSCULAR VOLUME 87.3 fl (80.0-96.0); PLATELET COUNT, AUTOMATED 448 10^3/uL (150-450); RED BLOOD COUNT 3.86 10^6/uL (4.00-5.40); WHITE BLOOD COUNT 8.2 10^3/uL (4.0-10.0)
[2018-06-02 18:14] LABS: BLOOD UREA NITROGEN 7 MG/DL (7-18); CARBON DIOXIDE LEVEL 22 MEQ/L (21-32); CHLORIDE LEVEL 103 MEQ/L (98-107); CREATININE FOR GFR 0.44 MG/DL (0.55-1.30); GLOMERULAR FILTRATION RATE > 60.0 (>45); GLUCOSE, FASTING 72 MG/DL (70-100); POTASSIUM SERUM 3.6 MEQ/L (3.5-5.1); SODIUM LEVEL 137 MEQ/L (136-145)
== END ==
DX: M25.561 Pain in right knee (principal)

== ENCOUNTER → 2018-06-03 | Outpatient (REF) | payer BC, MEDICARE ==
--- NOTE | 2018-06-03 15:49 | REP ---
Right chest/axillary ultrasound: History: History breast carcinoma. Right axillary pain. Findings: Scanning demonstrates a few normal size normal-appearing lymph nodes measuring 0.8 x 0.4 x 0.6 and 0.5 x 0.3 x 0.6 cm as well as a node measuring 0.6 x 0.4 x 0.6 cm. No cyst or mass is seen. No other abnormality. Impression: Normal appearing lymph nodes seen. Otherwise negative. Electronically Signed by Julian Monroe MD 06/03/2018 05:25 P
== END ==
LOC: EDSTATUS 10:40 → M RAD 11:58
PROVIDERS: ATTEND Physician Assistant
DX: M25.561 Pain in right knee (principal)

== ENCOUNTER → 2018-10-29 | Outpatient (REF) | payer MEDICARE, BC ==
[~2018-10-29] MED LIST changes: -/TIOT18INH INH; -ASPI1TAB PO; +ASPI81TA26 PO; +ESZO1TAB4 PO; +LATA0.0013 OP; -LATA5OPD OP; +LEVOTAB10 PO
[2018-10-29 16:18] LABS: INR 0.87; PROTHROMBIN TIME 11.5 SECONDS (11.8-14.0)
== END ==
LOC: M LAB REF 15:43
PROVIDERS: ATTEND Family Medicine
DX: M79.81 Nontraumatic hematoma of soft tissue (principal); Z79.01 Long term (current) use of anticoagulants

== ENCOUNTER → 2018-12-28 | Outpatient (REF) | payer MEDICARE, BC ==
[~2018-12-28] MED LIST changes: +ZANT150T40 PO; -ZANTTAB PO; +ZETI10TA16 PO; -ZETI10TA30 PO
[2018-12-28 14:07] LABS: BASO % 0.6 % (0.0-1.0); EOS # 0.2 10^3/uL (0.0-0.50); EOS % 3.1 % (0.0-3.0); HEMATOCRIT 41.1 % (36.0-47.0); HEMOGLOBIN 13.4 g/dl (12.0-15.5); LYMPH # 1.6 10^3/uL (1.5-4.5); LYMPH % 26.6 % (24.0-44.0); MEAN CORPUSCULAR HEMOGLOBIN 28.6 pg (27.0-33.0); MEAN CORPUSCULAR HGB CONC 32.6 g/dl (32.0-36.5); MEAN CORPUSCULAR VOLUME 87.8 fl (80.0-96.0); MONO # 0.7 10^3/uL (0.0-0.8); NEUTROPHILS # 3.5 10^3/uL (1.8-7.7); NEUTROPHILS % 57.2 % (36.0-66.0); PLATELET COUNT, AUTOMATED 287 10^3/uL (150-450); RED BLOOD COUNT 4.68 10^6/uL (4.00-5.40); WHITE BLOOD COUNT 6.2 10^3/uL (4.0-10.0)
[2018-12-28 14:37] LABS: ERYTHROCYTE SEDIMENTATION RATE 4 mm/hr (0-30)
== END ==
LOC: M LABDRAW1 13:36
PROVIDERS: ATTEND Orthopaedic Surgery
DX: Z47.1 Aftercare following joint replacement surgery (principal); Z79.51 Long term (current) use of inhaled steroids; Z79.82 Long term (current) use of aspirin; Z79.899 Other long term (current) drug therapy

== ENCOUNTER → 2019-06-28 | Outpatient (CLI) | payer MEDICARE, BC ==
[~2019-06-28] MED LIST changes: -OMEP40CA2 PO; +OMEP40CA97 PO; +PROV108A INH; +VITA-157 PO
--- NOTE | 2019-06-29 07:23 | REP ---
Clinical: Chest pain and tightness . Comparison: 05/13/2018 . Technique: PA and lateral. Findings: The mediastinum and cardiac silhouette are normal. The lung bernabe are clear and without acute consolidation, effusion, or pneumothorax. The skeletal structures are intact and normal. Impression: 1. No acute cardiopulmonary process. Electronically Signed by Anam Lira MD 06/28/2019 12:41 P
== END ==
LOC: M WUC 12:15
PROVIDERS: ATTEND Nurse Practitioner Family
DX: R06.02 Shortness of breath (principal)

== ENCOUNTER → 2019-10-06 | Outpatient (REF) | payer MEDICARE, BC ==
[2019-10-06 14:36] LABS: APPEARANCE, URINE HAZY (CLEAR); BACTERIA, URINE AUTO NEGATIVE (NEGATIVE); BILIRUBIN, URINE AUTO NEGATIVE (NEGATIVE); BLOOD, URINE BLOOD NEGATIVE (NEGATIVE); COLOR, URINE YELLOW (YELLOW); GLUCOSE, URINE (UA) AUTO NEGATIVE (NEGATIVE); KETONE, URINE AUTO NEGATIVE (NEGATIVE); LEUKOCYTE ESTERASE, URINE AUTO TRACE (NEGATIVE); NITRITE, URINE AUTO NEGATIVE (NEGATIVE); PROTEIN, URINE AUTO NEGATIVE (NEGATIVE); RBC, URINE AUTO 1 /HPF (0-3); SPECIFIC GRAVITY URINE AUTO 1.012 (1.002-1.035); SQUAMOUS EPITHELIAL CELL UR AU 5 /HPF (0-6); UROBILINOGEN, URINE AUTO 0.2 mg/dL (0.0-2.0); WBC, URINE AUTO 2 /HPF (0-3)
== END ==
LOC: M LAB REF 12:18
PROVIDERS: ATTEND Family Medicine
DX: M32.19 Other organ or system involvement in systemic lupus erythematosus (principal); Z79.899 Other long term (current) drug therapy

== ENCOUNTER → 2020-03-12 | Outpatient (REF) | payer MEDICARE, BC ==
[~2020-03-12] MED LIST changes: -ASPI81TA85 PO; +ASPI81TA86 PO; +FAMO40TA3 PO; -HYDR-2808 PO; +HYDR-4429 PO; +PANT40TA29 PO; -PANT40TA3 PO
== END ==
LOC: M LAB REF 11:22
PROVIDERS: ATTEND Family Medicine
DX: Z79.899 Other long term (current) drug therapy (principal)

== ENCOUNTER → 2020-08-28 | Outpatient (REF) | payer MEDICARE, BC ==
[~2020-08-28] MED LIST changes: +EZET10TA21 PO; +MULT-90 PO; +MYCO1TAB2 PO; +PRESCAP4 PO; -VITA-157 PO; +VITA1TAB26 PO; +VITAE40CA PO
== END ==
LOC: M LAB REF 11:20
PROVIDERS: ATTEND Family Medicine
DX: Z79.899 Other long term (current) drug therapy (principal)

== ENCOUNTER → 2020-09-24 | Outpatient (CLI) | payer MEDICARE, BC | LOC: M LABSMTC 09:31 | PROVIDERS: ATTEND Internal Medicine Gastroenterology | DX: Z01.812 Encounter for preprocedural laboratory examination (principal); Z20.822 Contact with and (suspected) exposure to COVID-19 ==

== ENCOUNTER → 2020-11-22 | Outpatient (REF) | payer MEDICARE, BC ==
[~2020-11-22] MED LIST changes: +OMEP40CA4 PO; -OMEP40CA97 PO
== END ==
LOC: M LAB REF 12:23
PROVIDERS: ATTEND Physician Assistant
DX: J20.9 Acute bronchitis, unspecified (principal)

== ENCOUNTER → 2021-08-27 | Outpatient (CLI) | payer MEDICARE, BC ==
[~2021-08-27] MED LIST changes: +GASTROGRAFIN SOLUTION 30ML (Q9963) As Ordered ONE; +ISOVUE-370 76% 100ML VIAL As Ordered ONE; -LEVO500T3 PO; +LEVO500T4 PO; -MOME50SP; +NASO50SP3
== END ==
LOC: M RAD 14:08
PROVIDERS: ATTEND Registered Nurse
DX: K80.20 Calculus of gallbladder without cholecystitis without obstruction (principal); R10.84 Generalized abdominal pain
CPT/HCPCS: 74178; Q9963; Q9967

== ENCOUNTER → 2021-09-09 | Outpatient (REF) | payer MEDICARE, BC ==
[~2021-09-09] MED LIST changes: -GASTROGRAFIN SOLUTION 30ML (Q9963) As Ordered ONE; -ISOVUE-370 76% 100ML VIAL As Ordered ONE
== END ==
LOC: M LAB REF 13:35
PROVIDERS: ATTEND Physician Assistant Medical
DX: R19.8 Other specified symptoms and signs involving the digestive system and abdomen (principal)

== ENCOUNTER → 2021-10-10 | Outpatient (REF) | payer MEDICARE, BC ==
[~2021-10-10] MED LIST changes: +FURO20TA2 PO; +NASONEX NARES; +VITA400C49 PO
== END ==
LOC: M LAB REF 11:24
PROVIDERS: ATTEND Family Medicine
DX: K58.2 Mixed irritable bowel syndrome (principal)

== ENCOUNTER → 2021-10-13 | Outpatient (CLI) | payer MEDICARE, BC ==
[~2021-10-13] MED LIST changes: -FURO20TA2 PO; -NASONEX NARES; -VITA400C49 PO
== END ==
LOC: M LABSMTC 10:28
PROVIDERS: ATTEND Anesthesiology
DX: Z11.52 Encounter for screening for COVID-19 (principal); Z20.822 Contact with and (suspected) exposure to COVID-19

== ENCOUNTER 2021-10-17 13:45 | Day surgery (SDC) | payer MEDICARE, BC ==
[~2021-10-17] VITALS: Ht 157.5 cm; Wt 78.5 kg
[~2021-10-17 13:45] MED LIST changes: +FURO20TA2 PO; +NASONEX NARES; +NS 1,000 ML IV ONE; +VITA400C49 PO
[2021-10-17] MEDS ORDERED: propofoL 200 MG/20 ML VIAL As Ordered ONE ×2 (15:31→16:08)
[2021-10-17] MEDS ORDERED: LABETALOL 100MG/20ML VIAL As Ordered ONE (15:34)
[2021-10-17] MEDS ORDERED: fentaNYL 100 MCG/2 ML INJECTION As Ordered ONE (16:06)
[2021-10-17] MEDS ORDERED: LIDOCAINE 2% 100MG/5ML SDV (FOR ANES.) As Ordered ONE (16:06)
== END 2021-10-17 17:19 | disposition home or self-care (01) ==
LOC: M OPP 13:45
PROVIDERS: ATTEND Internal Medicine Gastroenterology
DX: K57.30 Diverticulosis of large intestine without perforation or abscess without bleeding (principal); K64.8 Other hemorrhoids; R19.4 Change in bowel habit; D12.6 Benign neoplasm of colon, unspecified; R11.15 Cyclical vomiting syndrome unrelated to migraine; R11.0 Nausea; Z79.811 Long term (current) use of aromatase inhibitors; Z79.52 Long term (current) use of systemic steroids; Z79.899 Other long term (current) drug therapy; Z88.0 Allergy status to penicillin; Z88.1 Allergy status to other antibiotic agents; Z88.8 Allergy status to other drugs, medicaments and biological substances; Z91.040 Latex allergy status
CPT/HCPCS: 43235; 45380; 88305; J3010

== ENCOUNTER 2021-11-16 08:49 | Emergency (ER) | payer MEDICARE, BC ==
[~2021-11-16] VITALS: Ht 157.5 cm; Wt 77.3 kg
[~2021-11-16 08:49] MED LIST changes: -NS 1,000 ML IV ONE
[2021-11-16] MEDS ORDERED: LEVO500T4 PO (09:06)
[2021-11-16] MEDS ORDERED: CREO3600 PO (09:06)
[2021-11-16 09:56] LABS: BASO % 0.3 % (0.0-1.0); EOS # 0.1 10^3/uL (0.0-0.5); EOS % 0.5 % (0.0-3.0); HEMATOCRIT 42.4 % (36.0-47.0); HEMOGLOBIN 14.1 g/dl (12.0-15.5); LYMPH # 1.1 10^3/uL (1.5-5.0); LYMPH % 11.5 % (24.0-44.0); MEAN CORPUSCULAR HEMOGLOBIN 28.8 pg (27.0-33.0); MEAN CORPUSCULAR HGB CONC 33.3 g/dl (32.0-36.5); MEAN CORPUSCULAR VOLUME 86.7 fl (80.0-96.0); MONO # 0.9 10^3/uL (0.0-0.8); MONO % 9.5 % (2.0-8.0); NEUTROPHILS # 7.4 10^3/uL (1.5-8.5); NEUTROPHILS % 77.8 % (36.0-66.0); PLATELET COUNT, AUTOMATED 255 10^3/uL (150-450); RED BLOOD COUNT 4.89 10^6/uL (4.00-5.40); WHITE BLOOD COUNT 9.5 10^3/uL (4.0-10.0)
[2021-11-16 10:14] LABS: ERYTHROCYTE SEDIMENTATION RATE 3 mm/hr (0-30)
[2021-11-16 10:41] LABS: BLOOD UREA NITROGEN 11 MG/DL (7-18); CARBON DIOXIDE LEVEL 27 MEQ/L (21-32); CHLORIDE LEVEL 103 MEQ/L (98-107); CREATININE FOR GFR 0.67 MG/DL (0.55-1.30); GLOMERULAR FILTRATION RATE > 60.0 (>39); GLUCOSE, FASTING 92 MG/DL (70-100); POTASSIUM SERUM 3.4 MEQ/L (3.5-5.1); SODIUM LEVEL 133 MEQ/L (136-145)
[2021-11-16 10:42] LABS: CALCIUM LEVEL 8.7 MG/DL (8.8-10.2)
[2021-11-16] MEDS: DALBAVANCIN 1,500 MG in D5W 250 ML IV ONE (14:40)
[2021-11-16 15:44] VITALS: BP 147/66
== END 2021-11-16 15:58 | disposition home or self-care (01) ==
LOC: M ED 08:49
DX: N60.02 Solitary cyst of left breast (principal); E03.9 Hypothyroidism, unspecified; I10 Essential (primary) hypertension; E78.5 Hyperlipidemia, unspecified; M19.90 Unspecified osteoarthritis, unspecified site; M32.9 Systemic lupus erythematosus, unspecified; M85.88 Other specified disorders of bone density and structure, other site; K21.9 Gastro-esophageal reflux disease without esophagitis; Z79.2 Long term (current) use of antibiotics; Z88.1 Allergy status to other antibiotic agents; Z88.0 Allergy status to penicillin; Z88.8 Allergy status to other drugs, medicaments and biological substances; Z91.040 Latex allergy status; Z98.890 Other specified postprocedural states; Z85.3 Personal history of malignant neoplasm of breast; Z87.01 Personal history of pneumonia (recurrent)
CPT/HCPCS: 76642; 80048; 85025; 85652; 86140; 96365; 99284; J0875

== ENCOUNTER 2021-12-25 13:38 | Inpatient (IN) | payer MEDICARE, BC ==
[~2021-12-25] VITALS: Ht 157.5 cm; Wt 75.2 kg
[~2021-12-25 13:38] MED LIST changes: +CREO3600 PO; +LEVO1TAB39 PO; -LEVO500T4 PO
[2021-12-25] MEDS ORDERED: NS 1,000 ML IV ONE (15:55)
[2021-12-25] MEDS ORDERED: MORPHINE 4 MG/ML 1ML VIAL/SYRINGE IV ONE (15:55)
[2021-12-25 16:25] LABS: BASO # 0.1 10^3/uL (0.0-0.2); BASO % 0.8 % (0.0-1.0); EOS # 0.6 10^3/uL (0.0-0.5); EOS % 5.8 % (0.0-3.0); HEMATOCRIT 47.2 % (36.0-47.0); HEMOGLOBIN 15.6 g/dl (12.0-15.5); LYMPH # 1.3 10^3/uL (1.5-5.0); LYMPH % 12.2 % (24.0-44.0); MEAN CORPUSCULAR HEMOGLOBIN 28.4 pg (27.0-33.0); MEAN CORPUSCULAR HGB CONC 33.1 g/dl (32.0-36.5); MEAN CORPUSCULAR VOLUME 85.8 fl (80.0-96.0); MONO # 0.8 10^3/uL (0.0-0.8); NEUTROPHILS # 7.6 10^3/uL (1.5-8.5); NEUTROPHILS % 72.3 % (36.0-66.0); PLATELET COUNT, AUTOMATED 289 10^3/uL (150-450); WHITE BLOOD COUNT 10.6 10^3/uL (4.0-10.0)
[2021-12-25 16:57] LABS: ALBUMIN 3.2 GM/DL (3.2-5.2); ALT/SGPT 27 U/L (12-78); BILIRUBIN,DIRECT 0.1 MG/DL (0.0-0.2); BILIRUBIN,TOTAL 0.5 MG/DL (0.2-1.0); BLOOD UREA NITROGEN 11 MG/DL (7-18); CALCIUM LEVEL 8.8 MG/DL (8.8-10.2); CARBON DIOXIDE LEVEL 22 MEQ/L (21-32); CHLORIDE LEVEL 103 MEQ/L (98-107); CREATININE FOR GFR 0.76 MG/DL (0.55-1.30); GLOMERULAR FILTRATION RATE > 60.0 (>39); GLUCOSE, FASTING 86 MG/DL (70-100); LIPASE 73 U/L (73-393); POTASSIUM SERUM 3.7 MEQ/L (3.5-5.1); SODIUM LEVEL 134 MEQ/L (136-145); TOTAL PROTEIN 6.7 GM/DL (6.4-8.2)
[2021-12-25 16:59] LABS: MB/CK RELATIVE INDEX 1.59 (< OR =4)
[2021-12-25] MEDS ORDERED: ISOVUE-370 76% 100ML VIAL As Ordered ONE (17:51)
[2021-12-25 18:28] LABS: CK-MB VALUE MASS 1.1 NG/ML (<3.6); MB/CK RELATIVE INDEX 1.96 (< OR =4)
[2021-12-25] MEDS ORDERED: KETOROLAC 30 MG/ML 1ML VIAL IV PRN (21:30)
[2021-12-25] MEDS: NS 1,000 ML IV SCH (21:30)
[2021-12-25] MEDS ORDERED: SIMETHICONE 80MG CHEW TAB PO PRN (21:30)
[2021-12-25] MEDS ORDERED: ACETAMINOPHEN TAB 650MG DOSE (2X325MG) PO PRN (21:30)
[2021-12-25 23:01] LABS: INR 1.01; PROTHROMBIN TIME 13.7 SECONDS (12.7-14.5)
[2021-12-25 23:02] LABS: PARTIAL THROMBOPLASTIN TIME 26.6 SECONDS (25.9-37.0)
[2021-12-25 23:13] VITALS: BP 156/93
[2021-12-25] MEDS ORDERED: RAPA1TAB PO (23:21)
[2021-12-25] MEDS ORDERED: CREO3600 PO (23:21)
[2021-12-25] MEDS ORDERED: HYDR-4571 PO (23:21)
[2021-12-25] MEDS ORDERED: PANT-23 PO (23:21)
[2021-12-25] MEDS ORDERED: VITA-298 PO (23:21)
[2021-12-25] MEDS ORDERED: LUNE1TAB8 PO (23:21)
[2021-12-25] MEDS ORDERED: RA M10TA PO (23:21)
[2021-12-25] MEDS ORDERED: ALBU8.5H INH (23:21)
[2021-12-25] MEDS ORDERED: MOME50SP2 (23:21)
[2021-12-25] MEDS ORDERED: VITA100093 PO (23:21)
[2021-12-25] MEDS ORDERED: RAMELTEON 8 MG TAB (ROZEREM) PO PRN (23:25)
[2021-12-25] MEDS ORDERED: CREON-12 CAPSULE PO PRN (23:25)
[2021-12-25] MEDS ORDERED: HOME MED LIST COMPLETE! XX SCH (23:25)
[2021-12-25] MEDS ORDERED: ALBUTEROL 90 MCG/ACT 8GM HFA INHALER INH PRN (23:25)
[2021-12-26] MEDS ORDERED: ONDANSETRON 4MG 2ML VIAL IV PRN (00:10)
[2021-12-26] MEDS: KETOROLAC 30 MG/ML 1ML VIAL IV PRN ×2 (00:31→16:10)
[2021-12-26] MEDS: NS 1,000 ML IV SCH (00:32)
[2021-12-26 01:07] LABS: APPEARANCE, URINE MANUAL CLEAR (CLEAR); COLOR, URINE MANUAL YELLOW (YELLOW)
[2021-12-26 01:09] LABS: BILIRUBIN, URINE MANUAL NEGATIVE (NEGATIVE); BLOOD URINE MANUAL NEGATIVE (NEGATIVE); GLUCOSE, URINE (UA) MANUAL NEGATIVE (NEGATIVE); KETONE, URINE MANUAL 2+ mg/dL (NEGATIVE); LEUKOCYTE ESTERASE, URINE MAN NEGATIVE (NEGATIVE); NITRITE, URINE MANUAL NEGATIVE (NEGATIVE); PROTEIN, URINE MANUAL NEGATIVE (NEGATIVE); UROBILINOGEN, URINE MANUAL NORMAL (NORMAL)
[2021-12-26] MEDS: HYOSCYAMINE SULFATE 0.125 MG SUBL TABLET PO PRN ×2 (01:32→12:39)
[2021-12-26] MEDS: FAMOTIDINE 20 MG TAB PO SCH ×2 (01:33→20:59)
[2021-12-26] MEDS: MONTELUKAST 10 MG TAB PO SCH ×2 (01:33→20:59)
[2021-12-26] MEDS: LATANOPROST 0.005% OPHTH SOLN 2.5 ML OU SCH ×2 (01:47→20:59)
[2021-12-26] MEDS: BRINZOLAMIDE 1% OPHTH SUSP (AZOPT) 10ML OU SCH ×3 (01:47→20:59)
[2021-12-26] MEDS: FEXOFENADINE 60MG TAB PO SCH ×3 (01:47→20:59)
[2021-12-26 05:45] VITALS: BP 130/68
[2021-12-26 06:33] LABS: MEAN CORPUSCULAR HEMOGLOBIN 28.8 pg (27.0-33.0); MEAN CORPUSCULAR HGB CONC 33.1 g/dl (32.0-36.5); MEAN CORPUSCULAR VOLUME 87.1 fl (80.0-96.0); PLATELET COUNT, AUTOMATED 234 10^3/uL (150-450); RED BLOOD COUNT 4.48 10^6/uL (4.00-5.40); WHITE BLOOD COUNT 7.4 10^3/uL (4.0-10.0)
[2021-12-26 06:46] LABS: HEMOGLOBIN 12.9 g/dl (12.0-15.5)
[2021-12-26 07:04] LABS: BLOOD UREA NITROGEN 9 MG/DL (7-18); CALCIUM LEVEL 7.9 MG/DL (8.8-10.2); CARBON DIOXIDE LEVEL 19 MEQ/L (21-32); CHLORIDE LEVEL 109 MEQ/L (98-107); CREATININE FOR GFR 0.49 MG/DL (0.55-1.30); GLOMERULAR FILTRATION RATE > 60.0 (>39); GLUCOSE, FASTING 68 MG/DL (70-100); MAGNESIUM LEVEL 1.9 MG/DL (1.8-2.4); POTASSIUM SERUM 4.1 MEQ/L (3.5-5.1); SODIUM LEVEL 137 MEQ/L (136-145)
[2021-12-26] MEDS ORDERED: FLUTICASONE HFA 220 MCG 12 GM INHALER (FLOVENT) INH SCH (08:00)
[2021-12-26] MEDS: TIOTROPIUM INHALER/CAPSULE (SPIRIVA) INH SCH (08:35)
[2021-12-26] MEDS ORDERED: PREVNAR 13 VACCINE SYRINGE IM.IMMUN ONE (09:00)
[2021-12-26] MEDS ORDERED: MIRALAX *UNIT DOSE* 17GM PACKET PO SCH (09:00)
[2021-12-26] MEDS: TAMOXIFEN CITRATE 10 MG TAB PO SCH (09:12)
[2021-12-26] MEDS: ramipriL 5 MG CAP PO SCH ×2 (09:13→20:58)
[2021-12-26] MEDS: SIROLIMUS 1 MG TAB (RAPAMUNE) PO SCH (09:13)
[2021-12-26] MEDS: EZETIMIBE 10MG TABLET (ZETIA) PO SCH (09:13)
[2021-12-26] MEDS: PANTOPRAZOLE 40MG TAB (PROTONIX) PO SCH (09:14)
[2021-12-26] MEDS: ENOXAPARIN 40MG/0.4ML SYRINGE (J1650 PER 10MG) SC SCH (09:14)
[2021-12-26] MEDS: CREON-24 CAPSULE PO SCH ×4 (09:25→18:03)
[2021-12-26 14:00] VITALS: BP 134/73
[2021-12-26] MEDS: CREON-12 CAPSULE PO SCH ×2 (14:58→18:03)
[2021-12-26] MEDS ORDERED: CREON-24 CAPSULE PO PRN (15:15)
[2021-12-26] MEDS: SYMBICORT 160/4.5MCG INHALER 6GM INH SCH (20:00)
[2021-12-26] MEDS: DICYCLOMINE 10 MG CAP PO SCH ×2 (20:56→23:45)
[2021-12-26] MEDS: SIMETHICONE 80MG CHEW TAB PO SCH (20:59)
[2021-12-26] MEDS ORDERED: ACETAMINOPHEN 1000MG 100ML IV BTL (OFIRMEV) (J0131 PER 10MG) IV ONE (21:50)
[2021-12-26 22:00] VITALS: BP 144/78
[2021-12-26] MEDS: ESZOPICLONE 1 MG PO SCH (23:45)
[2021-12-27] MEDS: DICYCLOMINE 10 MG CAP PO SCH (04:33)
[2021-12-27 05:50] VITALS: BP 131/74
[2021-12-27 06:39] LABS: BASO % 0.5 % (0.0-1.0); EOS # 0.9 10^3/uL (0.0-0.5); EOS % 11.3 % (0.0-3.0); HEMATOCRIT 38.7 % (36.0-47.0); HEMOGLOBIN 12.7 g/dl (12.0-15.5); LYMPH # 0.9 10^3/uL (1.5-5.0); LYMPH % 11.9 % (24.0-44.0); MEAN CORPUSCULAR HEMOGLOBIN 28.4 pg (27.0-33.0); MEAN CORPUSCULAR HGB CONC 32.8 g/dl (32.0-36.5); MEAN CORPUSCULAR VOLUME 86.6 fl (80.0-96.0); MONO # 0.6 10^3/uL (0.0-0.8); MONO % 7.8 % (2.0-8.0); NEUTROPHILS # 5.4 10^3/uL (1.5-8.5); NEUTROPHILS % 67.9 % (36.0-66.0); PLATELET COUNT, AUTOMATED 197 10^3/uL (150-450); RED BLOOD COUNT 4.47 10^6/uL (4.00-5.40); WHITE BLOOD COUNT 7.9 10^3/uL (4.0-10.0)
[2021-12-27 07:06] LABS: BLOOD UREA NITROGEN 8 MG/DL (7-18); CALCIUM LEVEL 8.1 MG/DL (8.8-10.2); CARBON DIOXIDE LEVEL 20 MEQ/L (21-32); CHLORIDE LEVEL 105 MEQ/L (98-107); CREATININE FOR GFR 0.47 MG/DL (0.55-1.30); GLOMERULAR FILTRATION RATE > 60.0 (>39); GLUCOSE, FASTING 71 MG/DL (70-100); POTASSIUM SERUM 3.7 MEQ/L (3.5-5.1); SODIUM LEVEL 132 MEQ/L (136-145)
[2021-12-27] MEDS: CREON-24 CAPSULE PO SCH ×3 (07:47→18:38)
[2021-12-27] MEDS: CREON-12 CAPSULE PO SCH ×3 (07:47→18:38)
[2021-12-27] MEDS: DULERA INH SCH ×2 (08:00→20:00)
[2021-12-27] MEDS: SYMBICORT 160/4.5MCG INHALER 6GM INH SCH (08:00)
[2021-12-27] MEDS: TIOTROPIUM INHALER/CAPSULE (SPIRIVA) INH SCH (08:05)
[2021-12-27] MEDS: HYOSCYAMINE SULFATE 0.125 MG SUBL TABLET SL SCH ×3 (08:55→18:38)
[2021-12-27] MEDS: FLUTICASONE PROP 0.05% NASAL SPRAY 16 GM (FLONASE) NARES SCH (08:55)
[2021-12-27] MEDS: PANTOPRAZOLE 40MG TAB (PROTONIX) PO SCH (08:55)
[2021-12-27] MEDS: FEXOFENADINE 60MG TAB PO SCH ×2 (08:56→21:11)
[2021-12-27] MEDS: SIMETHICONE 80MG CHEW TAB PO SCH ×3 (08:56→21:12)
[2021-12-27] MEDS: ramipriL 5 MG CAP PO SCH ×2 (08:58→21:12)
[2021-12-27] MEDS: MIRALAX *UNIT DOSE* 17GM PACKET PO SCH (08:58)
[2021-12-27] MEDS: EZETIMIBE 10MG TABLET (ZETIA) PO SCH (08:59)
[2021-12-27] MEDS: BRINZOLAMIDE 1% OPHTH SUSP (AZOPT) 10ML OU SCH ×2 (08:59→21:14)
[2021-12-27] MEDS: TAMOXIFEN CITRATE 10 MG TAB PO SCH (08:59)
[2021-12-27] MEDS ORDERED: SIROLIMUS 1 MG TAB (RAPAMUNE) PO SCH (09:00)
[2021-12-27] MEDS: ENOXAPARIN 40MG/0.4ML SYRINGE (J1650 PER 10MG) SC SCH (09:00)
[2021-12-27] MEDS: KETOROLAC 30 MG/ML 1ML VIAL IV PRN (11:01)
[2021-12-27 14:00] VITALS: BP 131/80
[2021-12-27 14:09] VITALS: BP 114/57
[2021-12-27] MEDS ORDERED: IBUPROFEN 600MG TAB PO SCH (16:00)
[2021-12-27] MEDS ORDERED: LIDOCAINE 4% CREAM 5GM (LMX4) TOP PRN (17:30)
[2021-12-27] MEDS ORDERED: ACETAMINOPHEN 500 MG TAB PO SCH (21:00)
[2021-12-27] MEDS ORDERED: AMITRIPTYLINE 25MG TABLET PO SCH (21:00)
[2021-12-27] MEDS: FAMOTIDINE 20 MG TAB PO SCH (21:11)
[2021-12-27] MEDS: GABAPENTIN 300 MG CAP PO SCH (21:11)
[2021-12-27 21:12] VITALS: BP 134/79
[2021-12-27] MEDS: MONTELUKAST 10 MG TAB PO SCH (21:12)
[2021-12-27] MEDS: LATANOPROST 0.005% OPHTH SOLN 2.5 ML OU SCH (21:14)
[2021-12-27 22:00] VITALS: BP 132/79
[2021-12-28] MEDS: HYOSCYAMINE SULFATE 0.125 MG SUBL TABLET SL SCH ×3 (00:27→12:04)
[2021-12-28] MEDS: ESZOPICLONE 1 MG PO SCH (00:28)
[2021-12-28] MEDS: LIDOCAINE 4% CREAM 5GM (LMX4) TOP SCH ×3 (00:28→12:00)
[2021-12-28 06:00] VITALS: BP 106/65
[2021-12-28] MEDS: GABAPENTIN 300 MG CAP PO SCH ×2 (06:08→14:29)
[2021-12-28 06:14] LABS: BASO % 0.6 % (0.0-1.0); EOS # 1.3 10^3/uL (0.0-0.5); HEMOGLOBIN 12.6 g/dl (12.0-15.5); LYMPH # 1.2 10^3/uL (1.5-5.0); LYMPH % 19.3 % (24.0-44.0); MEAN CORPUSCULAR HGB CONC 34.1 g/dl (32.0-36.5); MEAN CORPUSCULAR VOLUME 85.3 fl (80.0-96.0); MONO # 0.5 10^3/uL (0.0-0.8); MONO % 8.4 % (2.0-8.0); NEUTROPHILS # 3.1 10^3/uL (1.5-8.5); NEUTROPHILS % 50.5 % (36.0-66.0); PLATELET COUNT, AUTOMATED 191 10^3/uL (150-450); RED BLOOD COUNT 4.34 10^6/uL (4.00-5.40); WHITE BLOOD COUNT 6.2 10^3/uL (4.0-10.0)
[2021-12-28 06:38] LABS: BLOOD UREA NITROGEN 6 MG/DL (7-18); CALCIUM LEVEL 7.7 MG/DL (8.8-10.2); CARBON DIOXIDE LEVEL 23 MEQ/L (21-32); CHLORIDE LEVEL 104 MEQ/L (98-107); CREATININE FOR GFR 0.43 MG/DL (0.55-1.30); GLOMERULAR FILTRATION RATE > 60.0 (>39); GLUCOSE, FASTING 81 MG/DL (70-100); POTASSIUM SERUM 3.2 MEQ/L (3.5-5.1); SODIUM LEVEL 135 MEQ/L (136-145)
[2021-12-28 06:42] LABS: EOS % 20.4 % (0.0-3.0)
[2021-12-28] MEDS: TIOTROPIUM INHALER/CAPSULE (SPIRIVA) INH SCH (07:16)
[2021-12-28] MEDS: DULERA INH SCH (07:19)
[2021-12-28] MEDS ORDERED: POTASSIUM CHLORIDE 10MEQ SR TABLET PO ONE (07:35)
[2021-12-28] MEDS: TAMOXIFEN CITRATE 10 MG TAB PO SCH (08:44)
[2021-12-28] MEDS: SIROLIMUS 1 MG TAB (RAPAMUNE) PO SCH (08:44)
[2021-12-28] MEDS: ramipriL 5 MG CAP PO SCH (08:45)
[2021-12-28] MEDS: FEXOFENADINE 60MG TAB PO SCH (08:45)
[2021-12-28] MEDS: CREON-12 CAPSULE PO SCH ×2 (08:46→12:04)
[2021-12-28] MEDS: CREON-24 CAPSULE PO SCH ×2 (08:46→12:04)
[2021-12-28] MEDS: PANTOPRAZOLE 40MG TAB (PROTONIX) PO SCH (08:46)
[2021-12-28] MEDS: SIMETHICONE 80MG CHEW TAB PO SCH (08:46)
[2021-12-28] MEDS: EZETIMIBE 10MG TABLET (ZETIA) PO SCH (08:46)
[2021-12-28] MEDS: FLUTICASONE PROP 0.05% NASAL SPRAY 16 GM (FLONASE) NARES SCH (08:47)
[2021-12-28] MEDS: BRINZOLAMIDE 1% OPHTH SUSP (AZOPT) 10ML OU SCH (08:47)
[2021-12-28] MEDS: ENOXAPARIN 40MG/0.4ML SYRINGE (J1650 PER 10MG) SC SCH ×2 (08:47→08:58)
[2021-12-28] MEDS: MIRALAX *UNIT DOSE* 17GM PACKET PO SCH (08:54)
[2021-12-28] MEDS ORDERED: IBUPROFEN 600MG TAB PO SCH (09:00)
[2021-12-28] MEDS ORDERED: LIDO4CR TOP (11:46)
[2021-12-28] MEDS ORDERED: GABA-282 PO (11:46)
[2021-12-28] MEDS ORDERED: ACET-683 PO (11:46)
[2021-12-28] MEDS ORDERED: SIME80TA16 PO (11:46)
[2021-12-28] MEDS ORDERED: AMIT25TA17 PO (11:46)
[2021-12-28] MEDS ORDERED: IBUP-1022 PO (11:46)
[2021-12-28] MEDS ORDERED: HYOS125TA SL (11:46)
== END 2021-12-28 14:46 | disposition home or self-care (01) | DRG 392 ==
LOC: M ED 13:38 → M ED INP 13:39 → UNDOADMOB 21:29 → ENRESERV 22:50 → M ED INP 23:15 → M MSPAV 23:15 → OBSVTOIN 12-27 18:13 → UNDODISOB 12-28 14:46
PROVIDERS: ADMIT Family Medicine; ATTEND Internal Medicine Nephrology
DX: K58.9 Irritable bowel syndrome, unspecified (principal); D25.9 Leiomyoma of uterus, unspecified; K86.89 Other specified diseases of pancreas; I10 Essential (primary) hypertension; E78.5 Hyperlipidemia, unspecified; K21.9 Gastro-esophageal reflux disease without esophagitis; J45.909 Unspecified asthma, uncomplicated; M79.7 Fibromyalgia; M32.9 Systemic lupus erythematosus, unspecified; M06.9 Rheumatoid arthritis, unspecified; Z85.3 Personal history of malignant neoplasm of breast; Z96.653 Presence of artificial knee joint, bilateral; Z20.822 Contact with and (suspected) exposure to COVID-19; Z79.899 Other long term (current) drug therapy; Z88.0 Allergy status to penicillin; Z88.1 Allergy status to other antibiotic agents; Z88.8 Allergy status to other drugs, medicaments and biological substances; Z91.040 Latex allergy status; K59.00 Constipation, unspecified; G47.00 Insomnia, unspecified

== ENCOUNTER → 2022-01-06 | Outpatient (CLI) | payer MEDICARE, BC ==
[~2022-01-06] MED LIST changes: +ACET-683 PO; +ALBU8.5H INH; +AMIT25TA17 PO; +GABA-282 PO; +HYDR-4571 PO; +HYOS125TA SL; +IBUP-1022 PO; +LIDO4CR TOP; +LUNE1TAB8 PO; +MOME50SP2; +PANT-23 PO; +RA M10TA PO; +RAPA1TAB PO; +SIME80TA16 PO; +VITA-298 PO; +VITA100093 PO
== END ==
LOC: M RAD 17:32
PROVIDERS: ATTEND Family Medicine
DX: R05.9 Cough, unspecified (principal); R06.02 Shortness of breath

== ENCOUNTER → 2022-01-19 | Outpatient (REF) | payer MEDICARE, BC ==
[~2022-01-19] MED LIST changes: +ALBU6.7H6 INH; -DULE200A INH; +MOME13HF7 INH; -PROV108A INH
== END ==
LOC: M WUC 19:02
PROVIDERS: ATTEND Physician Assistant
DX: N39.0 Urinary tract infection, site not specified (principal)

== ENCOUNTER → 2022-05-08 | Outpatient (CLI) | payer MEDICARE, BC ==
[~2022-05-08] MED LIST changes: +AZIT-12; +VITA-148 PO; -VITA-298 PO
== END ==
LOC: M LABSMTC 09:11
PROVIDERS: ATTEND Anesthesiology
DX: Z01.812 Encounter for preprocedural laboratory examination (principal); Z20.822 Contact with and (suspected) exposure to COVID-19

== ENCOUNTER 2022-05-13 10:38 | Day surgery (SDC) | payer MEDICARE, BC ==
[~2022-05-13] VITALS: Ht 157.5 cm; Wt 74.8 kg
[~2022-05-13 10:38] MED LIST changes: +ACETYLCHOLINE OPHTH SOLN 1% 2ML (MIOCHOL-E) As Ordered ONE; +BSS IRR 500ML/OMIDRIA 4ML IRR BAG (OR ONLY) As Ordered ONE; +CYCLOPENTOLATE 1% OPHTH SOLN 2ML BTL OS SCH; +LIDOCAINE 1% 1ML PF SYRINGE (OR EYE CASES) As Ordered ONE; +OFLOXACIN 0.3 % (OCUFLOX) OPTH SOL 5ML OS SCH; +PHENYLEPHRINE 2.5% OPHTH SOL 2ML OS SCH; +POVIDONE-IODINE 5% OPHTH PREP SOL 30ML As Ordered ONE; +PROPARACAINE 0.5% OPHTH SOL 15ML OS ONE; +TOBRADEX OPHTH OINT 3.5 GM As Ordered ONE; +TROPICAMIDE 1% OPHTH SOLN 15ML OS SCH
[2022-05-13] MEDS ORDERED: MIDAZOLAM INJ 2MG/2ML VIAL As Ordered ONE (11:59)
[2022-05-13 12:40] VITALS: BP 165/77
== END 2022-05-13 13:12 | disposition home or self-care (01) ==
LOC: M SDC 10:38
PROVIDERS: ATTEND Ophthalmology
DX: H25.12 Age-related nuclear cataract, left eye (principal); J45.909 Unspecified asthma, uncomplicated; M32.9 Systemic lupus erythematosus, unspecified; H40.9 Unspecified glaucoma; I10 Essential (primary) hypertension; E78.00 Pure hypercholesterolemia, unspecified; M19.90 Unspecified osteoarthritis, unspecified site; M79.7 Fibromyalgia; L71.9 Rosacea, unspecified; Z85.3 Personal history of malignant neoplasm of breast; Z88.0 Allergy status to penicillin; Z88.1 Allergy status to other antibiotic agents; Z88.8 Allergy status to other drugs, medicaments and biological substances; Z91.040 Latex allergy status; Z79.899 Other long term (current) drug therapy; Z79.2 Long term (current) use of antibiotics; Z79.51 Long term (current) use of inhaled steroids; Z79.810 Long term (current) use of selective estrogen receptor modulators (SERMs)
CPT/HCPCS: 66984; 92015; J1097; V2632

== ENCOUNTER → 2022-07-28 | Outpatient (CLI) | payer MEDICARE, BC ==
[~2022-07-28] MED LIST changes: -ACETYLCHOLINE OPHTH SOLN 1% 2ML (MIOCHOL-E) As Ordered ONE; -BSS IRR 500ML/OMIDRIA 4ML IRR BAG (OR ONLY) As Ordered ONE; -CYCLOPENTOLATE 1% OPHTH SOLN 2ML BTL OS SCH; -LIDOCAINE 1% 1ML PF SYRINGE (OR EYE CASES) As Ordered ONE; +MONT-5 PO; -OFLOXACIN 0.3 % (OCUFLOX) OPTH SOL 5ML OS SCH; -PHENYLEPHRINE 2.5% OPHTH SOL 2ML OS SCH; -POVIDONE-IODINE 5% OPHTH PREP SOL 30ML As Ordered ONE; -PROPARACAINE 0.5% OPHTH SOL 15ML OS ONE; +SEMA0.252; -SING10TA32 PO; -TOBRADEX OPHTH OINT 3.5 GM As Ordered ONE; -TROPICAMIDE 1% OPHTH SOLN 15ML OS SCH
== END ==
LOC: M EKG 14:30
PROVIDERS: ATTEND Physician Assistant
DX: J45.40 Moderate persistent asthma, uncomplicated (principal)

== ENCOUNTER 2022-08-14 18:06 | Emergency (ER) | payer MEDICARE, BC ==
[~2022-08-14] VITALS: Ht 157.5 cm; Wt 72.7 kg
[2022-08-14] MEDS ORDERED: HYOSCYAMINE SULFATE 0.125 MG SUBL TABLET PO STA (18:36)
[2022-08-14] MEDS ORDERED: ISOVUE-370 76% 100ML VIAL As Ordered ONE (18:39)
[2022-08-14 20:16] VITALS: BP 142/70
== END 2022-08-14 20:25 | disposition home or self-care (01) ==
LOC: M ED 18:06
DX: R10.9 Unspecified abdominal pain (principal); I10 Essential (primary) hypertension; K21.9 Gastro-esophageal reflux disease without esophagitis; E78.5 Hyperlipidemia, unspecified; M79.7 Fibromyalgia; K86.1 Other chronic pancreatitis; Z85.3 Personal history of malignant neoplasm of breast; Z88.1 Allergy status to other antibiotic agents; Z88.8 Allergy status to other drugs, medicaments and biological substances; Z91.040 Latex allergy status; Z79.51 Long term (current) use of inhaled steroids; Z79.899 Other long term (current) drug therapy
CPT/HCPCS: 74177; 99284; Q9967

== ENCOUNTER → 2022-08-14 | Outpatient (CLI) | payer MEDICARE, BC ==
[2022-08-14 16:51] LABS: BASO # 0.1 10^3/uL (0.0-0.2); BASO % 0.9 % (0.0-1.0); EOS # 0.1 10^3/uL (0.0-0.5); EOS % 1.1 % (0.0-3.0); HEMOGLOBIN 14.9 g/dl (12.0-15.5); LYMPH # 1.9 10^3/uL (1.5-5.0); LYMPH % 25.7 % (24.0-44.0); MEAN CORPUSCULAR HEMOGLOBIN 28.7 pg (27.0-33.0); MEAN CORPUSCULAR HGB CONC 33.1 g/dl (32.0-36.5); MEAN CORPUSCULAR VOLUME 86.5 fl (80.0-96.0); MONO # 0.8 10^3/uL (0.0-0.8); MONO % 10.8 % (2.0-8.0); NEUTROPHILS # 4.5 10^3/uL (1.5-8.5); PLATELET COUNT, AUTOMATED 311 10^3/uL (150-450); WHITE BLOOD COUNT 7.4 10^3/uL (4.0-10.0)
[2022-08-14 17:11] LABS: LIPASE 25 U/L (12-53)
[2022-08-14 17:13] LABS: AMYLASE 51 U/L (30-118)
[2022-08-14 17:14] LABS: ALBUMIN 3.4 G/DL (3.2-5.2); ALKALINE PHOSPHATASE 60 U/L (46-116); ALT/SGPT 16 U/L (7.0-40); AST/SGOT 23 U/L (<34); BILIRUBIN,TOTAL 0.4 MG/DL (0.3-1.2); BLOOD UREA NITROGEN 10 MG/DL (9-23); CALCIUM LEVEL 8.3 MG/DL (8.3-10.6); CARBON DIOXIDE LEVEL 23 MMOL/L (20-31); CHLORIDE LEVEL 100 MMOL/L (98-107); GLOMERULAR FILTRATION RATE > 60.0 (>39); GLUCOSE, FASTING 85 MG/DL (74-106); POTASSIUM SERUM 3.9 MMOL/L (3.5-5.1); SODIUM LEVEL 131 MMOL/L (136-145); TOTAL PROTEIN 6.4 G/DL (5.7-8.2)
== END ==
LOC: M RAD 15:56
PROVIDERS: ATTEND Physician Assistant Medical
DX: R10.84 Generalized abdominal pain (principal); R11.0 Nausea

== ENCOUNTER → 2022-08-21 | Outpatient (REF) | payer MEDICARE, BC | LOC: M LAB REF 16:12 | PROVIDERS: ATTEND Nurse Practitioner Adult Health | DX: R10.30 Lower abdominal pain, unspecified (principal) ==

== ENCOUNTER 2022-09-05 11:00 | Emergency (ER) | payer MEDICARE, BC ==
[~2022-09-05] VITALS: Ht 157.5 cm; Wt 71.1 kg
[2022-09-05] MEDS ORDERED: NS 500 ML IV ONE (12:30)
[2022-09-05] MEDS ORDERED: PROMETHAZINE 25MG/ML 1ML VIAL IV ONE (12:30)
[2022-09-05 13:21] LABS: BASO % 0.6 % (0.0-1.0); EOS % 0.4 % (0.0-3.0); HEMATOCRIT 42.3 % (36.0-47.0); HEMOGLOBIN 14.3 g/dl (12.0-15.5); LYMPH # 1.3 10^3/uL (1.5-5.0); LYMPH % 18.2 % (24.0-44.0); MEAN CORPUSCULAR HEMOGLOBIN 29.4 pg (27.0-33.0); MEAN CORPUSCULAR HGB CONC 33.8 g/dl (32.0-36.5); MEAN CORPUSCULAR VOLUME 86.9 fl (80.0-96.0); MONO # 0.7 10^3/uL (0.0-0.8); MONO % 9.6 % (2.0-8.0); NEUTROPHILS # 4.9 10^3/uL (1.5-8.5); NEUTROPHILS % 70.6 % (36.0-66.0); PLATELET COUNT, AUTOMATED 263 10^3/uL (150-450); RED BLOOD COUNT 4.87 10^6/uL (4.00-5.40); WHITE BLOOD COUNT 6.9 10^3/uL (4.0-10.0)
[2022-09-05 13:48] LABS: ALBUMIN 3.2 G/DL (3.2-5.2); ALKALINE PHOSPHATASE 53 U/L (46-116); ALT/SGPT 19 U/L (7.0-40); AST/SGOT 53 U/L (<34); BILIRUBIN,DIRECT < 0.1 MG/DL (<0.4); BILIRUBIN,TOTAL 0.5 MG/DL (0.3-1.2); BLOOD UREA NITROGEN 8 MG/DL (9-23); CALCIUM LEVEL 8.3 MG/DL (8.3-10.6); CARBON DIOXIDE LEVEL 21 MMOL/L (20-31); CHLORIDE LEVEL 104 MMOL/L (98-107); CREATININE FOR GFR 0.57 MG/DL (0.55-1.30); GLOMERULAR FILTRATION RATE > 60.0 (>39); GLUCOSE, FASTING 78 MG/DL (74-106); LIPASE 24 U/L (12-53); POTASSIUM SERUM 4.9 MMOL/L (3.5-5.1); SODIUM LEVEL 135 MMOL/L (136-145); TOTAL PROTEIN 6.3 G/DL (5.7-8.2)
[2022-09-05] MEDS ORDERED: PROM12.56 PO (15:00)
[2022-09-05 15:10] VITALS: BP 148/96
== END 2022-09-05 15:53 | disposition home or self-care (01) ==
LOC: M ED 11:00
DX: R10.9 Unspecified abdominal pain (principal); R11.2 Nausea with vomiting, unspecified; I10 Essential (primary) hypertension; K21.9 Gastro-esophageal reflux disease without esophagitis; K85.90 Acute pancreatitis without necrosis or infection, unspecified; K57.90 Diverticulosis of intestine, part unspecified, without perforation or abscess without bleeding; M79.7 Fibromyalgia; K58.9 Irritable bowel syndrome, unspecified; Z85.3 Personal history of malignant neoplasm of breast; Z88.8 Allergy status to other drugs, medicaments and biological substances; Z88.1 Allergy status to other antibiotic agents; Z91.040 Latex allergy status; Z79.899 Other long term (current) drug therapy; Z79.51 Long term (current) use of inhaled steroids
CPT/HCPCS: 74019; 80048; 80076; 83690; 85025; 93005; 96374; 99284; J2550

== ENCOUNTER → 2022-12-31 | Outpatient (CLI) | payer MEDICARE, BC ==
[~2022-12-31] MED LIST changes: -AMIT25TA17 PO; +AMIT25TA19 PO; +PROM12.56 PO
[2022-12-31 14:06] LABS: BASO # 0.1 10^3/uL (0.0-0.2); BASO % 0.8 % (0.0-1.0); EOS # 0.3 10^3/uL (0.0-0.5); EOS % 3.7 % (0.0-3.0); HEMATOCRIT 44.6 % (36.0-47.0); HEMOGLOBIN 14.4 g/dl (12.0-15.5); LYMPH # 1.6 10^3/uL (1.5-5.0); LYMPH % 22.1 % (24.0-44.0); MEAN CORPUSCULAR HGB CONC 32.3 g/dl (32.0-36.5); MEAN CORPUSCULAR VOLUME 89.9 fl (80.0-96.0); MONO # 0.8 10^3/uL (0.0-0.8); MONO % 10.6 % (2.0-8.0); NEUTROPHILS # 4.6 10^3/uL (1.5-8.5); NEUTROPHILS % 62.5 % (36.0-66.0); PLATELET COUNT, AUTOMATED 254 10^3/uL (150-450); RED BLOOD COUNT 4.96 10^6/uL (4.00-5.40); WHITE BLOOD COUNT 7.4 10^3/uL (4.0-10.0)
[2022-12-31 14:23] LABS: ERYTHROCYTE SEDIMENTATION RATE 10 mm/hr (0-30)
== END ==
LOC: M RAD 12:36
PROVIDERS: ATTEND Physician Assistant
DX: M79.661 Pain in right lower leg (principal)

== ENCOUNTER 2023-01-04 17:38 | Emergency (ER) | payer MEDICARE, BC ==
[~2023-01-04] VITALS: Ht 157.5 cm; Wt 70.5 kg
[2023-01-04] MEDS ORDERED: NS 1,000 ML IV ONE (19:25)
[2023-01-04] MEDS ORDERED: ONDANSETRON 4MG 2ML VIAL IV ONE (20:00)
[2023-01-04] MEDS ORDERED: KETOROLAC 30 MG/ML 1ML VIAL IV ONE (20:00)
[2023-01-04 20:14] LABS: BASO # 0.1 10^3/uL (0.0-0.2); BASO % 0.8 % (0.0-1.0); EOS # 0.1 10^3/uL (0.0-0.5); EOS % 1.2 % (0.0-3.0); HEMOGLOBIN 15.4 g/dl (12.0-15.5); LYMPH # 1.7 10^3/uL (1.5-5.0); LYMPH % 18.6 % (24.0-44.0); MEAN CORPUSCULAR HEMOGLOBIN 28.7 pg (27.0-33.0); MEAN CORPUSCULAR HGB CONC 32.8 g/dl (32.0-36.5); MEAN CORPUSCULAR VOLUME 87.7 fl (80.0-96.0); MONO # 0.9 10^3/uL (0.0-0.8); MONO % 9.5 % (2.0-8.0); NEUTROPHILS # 6.2 10^3/uL (1.5-8.5); NEUTROPHILS % 69.6 % (36.0-66.0); PLATELET COUNT, AUTOMATED 261 10^3/uL (150-450); RED BLOOD COUNT 5.36 10^6/uL (4.00-5.40)
[2023-01-04 20:25] LABS: INR 1.02; PARTIAL THROMBOPLASTIN TIME 27.2 SECONDS (24.8-34.2); PROTHROMBIN TIME 13.1 SECONDS (12.5-14.5)
[2023-01-04 21:46] LABS: CK-MB VALUE MASS 14.3 NG/ML (<3.6)
[2023-01-04 21:47] LABS: LIPASE 25 U/L (12-53)
[2023-01-04 21:49] LABS: CPK CREATINE PHOSPHOKINASE 309 U/L (34-145); MB/CK RELATIVE INDEX 4.62 (< OR =4)
[2023-01-04 21:50] LABS: ALBUMIN 3.4 G/DL (3.2-5.2); ALKALINE PHOSPHATASE 75 U/L (46-116); ALT/SGPT 21 U/L (7.0-40); AST/SGOT 49 U/L (<34); BILIRUBIN,DIRECT 0.1 MG/DL (<0.4); BILIRUBIN,TOTAL 0.4 MG/DL (0.3-1.2); BLOOD UREA NITROGEN 7 MG/DL (9-23); CALCIUM LEVEL 8.6 MG/DL (8.3-10.6); CARBON DIOXIDE LEVEL 23 MMOL/L (20-31); CHLORIDE LEVEL 103 MMOL/L (98-107); CREATININE FOR GFR 0.55 MG/DL (0.55-1.30); FREE T4 1.01 NG/DL (0.89-1.76); GLOMERULAR FILTRATION RATE > 60.0 (>39); GLUCOSE, FASTING 81 MG/DL (74-106); POTASSIUM SERUM 3.9 MMOL/L (3.5-5.1); SODIUM LEVEL 136 MMOL/L (136-145); TOTAL PROTEIN 6.7 G/DL (5.7-8.2)
[2023-01-04] MEDS ORDERED: ASPIRIN 81MG CHEW TABLET PO ONE (22:05)
[2023-01-04] MEDS ORDERED: HEPARIN DRIP 25,000 UNITS in IV 1 EA IV SCH (22:05)
[2023-01-04] MEDS ORDERED: HEPARIN SOD (PORCINE) 5000UNITS/ML 1ML VIAL/SYRINGE IV ONE (22:05)
[2023-01-04] MEDS ORDERED: MORPHINE 4 MG/ML 1ML VIAL IV ONE (22:05)
[2023-01-04] MEDS: NITROGLYCERIN 0.4MG SUBL TABLET SL PRN ×2 (22:36→23:12)
[2023-01-04 22:46] LABS: CK-MB VALUE MASS 12.4 NG/ML (<3.6); MB/CK RELATIVE INDEX 4.57 (< OR =4)
[2023-01-04] MEDS ORDERED: ISOVUE-370 76% 100ML VIAL As Ordered ONE (22:52)
[2023-01-04 23:12] VITALS: BP 163/75
[2023-01-05] MEDS ORDERED: NITROGLYCERIN 2% OINT 1 GM *U/D* PKT TOP ONE (00:45)
[2023-01-05] MEDS ORDERED: HALOPERIDOL 5MG/ML 1ML VIAL IV ONE (01:00)
[2023-01-05 01:04] LABS: RSV AMPLIFICATION NEGATIVE (NEGATIVE)
[2023-01-05 01:41] VITALS: BP 101/55; TEMP 96.3; O2SAT 94
== END 2023-01-05 01:47 | disposition short-term general hospital (02) ==
LOC: M ED 17:38
DX: I21.4 Non-ST elevation (NSTEMI) myocardial infarction (principal); I10 Essential (primary) hypertension; E78.5 Hyperlipidemia, unspecified; M79.7 Fibromyalgia; H40.9 Unspecified glaucoma; K59.00 Constipation, unspecified; Z88.0 Allergy status to penicillin; Z88.1 Allergy status to other antibiotic agents; Z88.8 Allergy status to other drugs, medicaments and biological substances; Z91.040 Latex allergy status; Z79.899 Other long term (current) drug therapy; Z79.51 Long term (current) use of inhaled steroids
CPT/HCPCS: 71045; 71275; 80048; 80076; 82550; 82553; 83690; 83880; 84439; 84443; 84484; 85025; 85610; 85730; 87631; 93005; 93041; 94760; 96365; 96367; 96375; 99285; J1630; J1885; J2405; Q9967

== ENCOUNTER → 2023-06-04 | Outpatient (REF) | payer MEDICARE, BC ==
[~2023-06-04] MED LIST changes: -BIOT50004 PO; +BIOT5CAP8 PO; +EZET10TA58 PO; -LUNE2TAB23 PO; +LUNE2TAB28 PO; -ZETI10TA16 PO
== END ==
LOC: M LAB REF 16:23
PROVIDERS: ATTEND Family Medicine
DX: E07.9 Disorder of thyroid, unspecified (principal)

== ENCOUNTER → 2023-07-14 | Outpatient (REF) | payer MEDICARE, BC | LOC: M LAB REF 12:09 | PROVIDERS: ATTEND Nurse Practitioner Family | DX: R30.0 Dysuria (principal) ==

== ENCOUNTER → 2023-07-20 | Outpatient (REF) | payer MEDICARE, BC | LOC: M LAB REF 12:07 | PROVIDERS: ATTEND Family Medicine | DX: E07.9 Disorder of thyroid, unspecified (principal) ==

== ENCOUNTER 2023-07-24 16:41 | Emergency (ER) | payer MEDICARE, BC ==
[~2023-07-24] VITALS: Ht 157.5 cm; Wt 74.0 kg
[2023-07-24] MEDS: NS 2,220 ML in IV 1 EA IV ONE (17:05)
[2023-07-24 18:32] LABS: BASO % 0.4 % (0.0-1.0); EOS # 0.1 10^3/uL (0.0-0.5); EOS % 1.9 % (0.0-3.0); HEMATOCRIT 40.4 % (36.0-47.0); HEMOGLOBIN 12.6 g/dl (12.0-15.5); LYMPH # 1.2 10^3/uL (1.5-5.0); MEAN CORPUSCULAR HEMOGLOBIN 28.4 pg (27.0-33.0); MEAN CORPUSCULAR HGB CONC 31.2 g/dl (32.0-36.5); MEAN CORPUSCULAR VOLUME 91.2 fl (80.0-96.0); MONO # 0.7 10^3/uL (0.0-0.8); MONO % 9.5 % (2.0-8.0); NEUTROPHILS # 5.2 10^3/uL (1.5-8.5); NEUTROPHILS % 70.7 % (36.0-66.0); PLATELET COUNT, AUTOMATED 194 10^3/uL (150-450); RED BLOOD COUNT 4.43 10^6/uL (4.00-5.40); VENOUS BASE EXCESS -10.8 (-2.0-2.0); VENOUS HCO3 15.9 MMOL/L (23.0-27.0); VENOUS O2 SATURATION 82.9 % (60.0-80.0); VENOUS PARTIAL PRESSURE CO2 38.2 mmHg (38.0-50.0); VENOUS PARTIAL PRESSURE O2 50.8 mmHg (30.0-50.0); VENOUS PH 7.237 UNITS (7.330-7.430); VENOUS STANDARD HCO3 15.7 MMOL/L; VENOUS TOTAL CO2 17.1 MMOL/L (24.0-28.0); WHITE BLOOD COUNT 7.3 10^3/uL (4.0-10.0)
[2023-07-24 18:49] LABS: INR 1.02; PARTIAL THROMBOPLASTIN TIME 27.5 SECONDS (24.8-34.2); PROTHROMBIN TIME 13.1 SECONDS (12.5-14.5)
[2023-07-24 19:07] LABS: C REACTIVE PROTEIN QUANTITATIV < 0.40 MG/DL (<1.0)
[2023-07-24 19:08] LABS: ALBUMIN 3.1 G/DL (3.2-5.2); ALKALINE PHOSPHATASE 125 U/L (46-116); ALT/SGPT 10 U/L (7.0-40); AMYLASE 74 U/L (30-118); AST/SGOT 15 U/L (<34); BILIRUBIN,DIRECT < 0.1 MG/DL (<0.4); BILIRUBIN,TOTAL 0.3 MG/DL (0.3-1.2); BLOOD UREA NITROGEN 28 MG/DL (9-23); CALCIUM LEVEL 7.9 MG/DL (8.3-10.6); CARBON DIOXIDE LEVEL 22 MMOL/L (20-31); CHLORIDE LEVEL 104 MMOL/L (98-107); CREATININE FOR GFR 1.14 MG/DL (0.55-1.30); GLOMERULAR FILTRATION RATE 49.7 (>39); GLUCOSE, FASTING 110 MG/DL (74-106); POTASSIUM SERUM 4.6 MMOL/L (3.5-5.1); SODIUM LEVEL 133 MMOL/L (136-145)
[2023-07-24 19:20] LABS: PROCALCITONIN <0.04 ng/ml
[2023-07-24] MEDS: KETOROLAC 30 MG/ML 1ML VIAL IV ONE (21:51)
[2023-07-24] MEDS ORDERED: MEDR4PAK PO (22:01)
[2023-07-24 22:30] VITALS: BP 125/69
[2023-07-24 22:31] VITALS: TEMP 97; O2SAT 95
[2023-07-24] MEDS: methylPREDNISolone 125MG 2ML VIAL IV ONE (22:33)
== END 2023-07-24 22:57 | disposition home or self-care (01) ==
LOC: EDBD 16:41 → M ED 16:41
DX: I95.9 Hypotension, unspecified (principal); M54.9 Dorsalgia, unspecified; T48.1X5A Adverse effect of skeletal muscle relaxants [neuromuscular blocking agents], initial encounter; I10 Essential (primary) hypertension; E78.5 Hyperlipidemia, unspecified; M32.9 Systemic lupus erythematosus, unspecified; J45.909 Unspecified asthma, uncomplicated; K58.9 Irritable bowel syndrome, unspecified; M06.9 Rheumatoid arthritis, unspecified; Z85.3 Personal history of malignant neoplasm of breast; Z79.899 Other long term (current) drug therapy; Z88.8 Allergy status to other drugs, medicaments and biological substances; Z88.0 Allergy status to penicillin; Z88.1 Allergy status to other antibiotic agents; Z91.040 Latex allergy status
CPT/HCPCS: 36415; 71045; 80048; 80076; 82150; 82803; 83605; 84145; 85025; 85610; 85730; 86140; 87040; 87486; 87581; 87633; 87798; 93005; 93041; 94760; 96361; 96374; 99285; J2930

== ENCOUNTER → 2023-08-20 | Outpatient (CLI) | payer MEDICARE, BC ==
[~2023-08-20] MED LIST changes: +MEDR4PAK PO
== END ==
LOC: M WHC 10:08
PROVIDERS: ATTEND Orthopaedic Surgery
DX: M43.16 Spondylolisthesis, lumbar region (principal); M85.89 Other specified disorders of bone density and structure, multiple sites

== ENCOUNTER → 2024-01-22 | Outpatient (CLI) | payer MEDICARE ==
[~2024-01-22] MED LIST changes: +ONDA-282 PO; -ONDA4TAB6 PO
== END ==
LOC: M WUC 11:35
PROVIDERS: ATTEND Nurse Practitioner Family
DX: R05.9 Cough, unspecified (principal)

== ENCOUNTER 2024-02-01 12:14 | Emergency (ER) | payer MEDICARE, BC ==
[~2024-02-01] VITALS: Ht 157.5 cm; Wt 72.0 kg
[~2024-02-01 12:14] MED LIST changes: +GABA-1172 PO; -GABA-282 PO
[2024-02-01 12:15] VITALS: TEMP 99
[2024-02-01] MEDS ORDERED: METO1TAB87 PO (12:30)
[2024-02-01] MEDS ORDERED: LEVO1TAB40 PO (12:30)
[2024-02-01] MEDS ORDERED: SEMA3TAB4 PO (12:30)
[2024-02-01 12:55] LABS: BASO # 0.1 10^3/uL (0.0-0.2); EOS # 0.2 10^3/uL (0.0-0.5); EOS % 2.5 % (0.0-3.0); HEMATOCRIT 41.9 % (36.0-47.0); HEMOGLOBIN 13.8 g/dl (12.0-15.5); LYMPH # 1.1 10^3/uL (1.5-5.0); LYMPH % 13.8 % (24.0-44.0); MEAN CORPUSCULAR HEMOGLOBIN 28.2 pg (27.0-33.0); MEAN CORPUSCULAR HGB CONC 32.9 g/dl (32.0-36.5); MEAN CORPUSCULAR VOLUME 85.7 fl (80.0-96.0); MONO # 1.1 10^3/uL (0.0-0.8); NEUTROPHILS # 5.5 10^3/uL (1.5-8.5); NEUTROPHILS % 67.7 % (36.0-66.0); PLATELET COUNT, AUTOMATED 353 10^3/uL (150-450); RED BLOOD COUNT 4.89 10^6/uL (4.00-5.40); WHITE BLOOD COUNT 8.1 10^3/uL (4.0-10.0)
[2024-02-01 13:04] LABS: INR 1.03; PROTHROMBIN TIME 13.2 SECONDS (12.5-14.5)
[2024-02-01 13:16] LABS: ALBUMIN 3.2 G/DL (3.2-5.2); ALKALINE PHOSPHATASE 60 U/L (46-116); ALT/SGPT 17 U/L (7.0-40); AST/SGOT 20 U/L (<34); BILIRUBIN,DIRECT 0.1 MG/DL (<0.4); BILIRUBIN,TOTAL 0.4 MG/DL (0.3-1.2); BLOOD UREA NITROGEN 10 MG/DL (9-23); CALCIUM LEVEL 8.5 MG/DL (8.3-10.6); CARBON DIOXIDE LEVEL 23 MMOL/L (20-31); CHLORIDE LEVEL 101 MMOL/L (98-107); CK-MB VALUE MASS < 1.0 NG/ML (<3.6); CPK CREATINE PHOSPHOKINASE 50 U/L (34-145); CREATININE FOR GFR 0.91 MG/DL (0.55-1.30); GLOMERULAR FILTRATION RATE > 60.0 (>39); GLUCOSE, FASTING 92 MG/DL (74-106); POTASSIUM SERUM 4.2 MMOL/L (3.5-5.1); SODIUM LEVEL 132 MMOL/L (136-145); TOTAL PROTEIN 6.5 G/DL (5.7-8.2)
[2024-02-01 15:30] VITALS: BP 107/53; O2SAT 97
== END 2024-02-01 16:05 | disposition home or self-care (01) ==
LOC: M ED 12:14
DX: R05.9 Cough, unspecified (principal); I25.2 Old myocardial infarction; I10 Essential (primary) hypertension; K21.9 Gastro-esophageal reflux disease without esophagitis; E78.5 Hyperlipidemia, unspecified; Z85.3 Personal history of malignant neoplasm of breast; Z88.1 Allergy status to other antibiotic agents; Z88.2 Allergy status to sulfonamides; Z88.8 Allergy status to other drugs, medicaments and biological substances; Z79.51 Long term (current) use of inhaled steroids; Z79.2 Long term (current) use of antibiotics; Z79.899 Other long term (current) drug therapy
CPT/HCPCS: 36415; 71045; 80048; 80076; 82550; 82553; 83880; 84484; 85025; 85610; 85730; 87486; 87581; 87633; 87798; 93005; 94010; 99284; G0463

== ENCOUNTER → 2024-02-02 | Outpatient (CLI) | payer MEDICARE, BC ==
[~2024-02-02] MED LIST changes: -GABA-1172 PO; +GABA-282 PO; +LEVO1TAB40 PO; +METO1TAB87 PO; +SEMA3TAB4 PO
[2024-02-02 17:41] LABS: BASO # 0.1 10^3/uL (0.0-0.2); BASO % 0.6 % (0.0-1.0); EOS # 0.1 10^3/uL (0.0-0.5); EOS % 1.1 % (0.0-3.0); HEMATOCRIT 40.6 % (36.0-47.0); HEMOGLOBIN 13.4 g/dl (12.0-15.5); LYMPH # 0.9 10^3/uL (1.5-5.0); LYMPH % 8.6 % (24.0-44.0); MEAN CORPUSCULAR HEMOGLOBIN 28.8 pg (27.0-33.0); MEAN CORPUSCULAR VOLUME 87.1 fl (80.0-96.0); MONO # 0.9 10^3/uL (0.0-0.8); MONO % 8.1 % (2.0-8.0); NEUTROPHILS # 8.5 10^3/uL (1.5-8.5); NEUTROPHILS % 80.4 % (36.0-66.0); PLATELET COUNT, AUTOMATED 383 10^3/uL (150-450); RED BLOOD COUNT 4.66 10^6/uL (4.00-5.40); WHITE BLOOD COUNT 10.5 10^3/uL (4.0-10.0)
[2024-02-02 18:14] LABS: IMMUNOGLOBULIN A 236.7 MG/DL (40-350); IMMUNOGLOBULIN G 850 MG/DL (650-1600)
[2024-02-02 18:17] LABS: IMMUNOGLOBULIN E 92.1 IU/ML (0-378)
[2024-02-02 18:18] LABS: ERYTHROCYTE SEDIMENTATION RATE 23 mm/hr (0-30)
[2024-02-08 12:47] LABS: ANTI TETANUS ANTIBODY 5.22 IU/mL (>=0.10)
[2024-02-10 14:18] LABS: STREP PNEUMO TYPE 1 2.6 ug/mL (>1.3); STREP PNEUMO TYPE 12F 0.5 ug/mL (>1.3); STREP PNEUMO TYPE 14 7.5 ug/mL (>1.3); STREP PNEUMO TYPE 18C 7.8 ug/mL (>1.3); STREP PNEUMO TYPE 19F 19.9 ug/mL (>1.3); STREP PNEUMO TYPE 23F 10.6 ug/mL (>1.3); STREP PNEUMO TYPE 3 0.5 ug/mL (>1.3); STREP PNEUMO TYPE 5 10.6 ug/mL (>1.3); STREP PNEUMO TYPE 6B 11.7 ug/mL (>1.3); STREP PNEUMO TYPE 7F 7.7 ug/mL (>1.3); STREP PNEUMO TYPE 8 21.2 ug/mL (>1.3); STREP PNEUMO TYPE 9V 2.4 ug/mL (>1.3)
== END ==
LOC: M WUC 11:59
PROVIDERS: ATTEND Nurse Practitioner Family
DX: D84.9 Immunodeficiency, unspecified (principal)

== ENCOUNTER → 2024-02-09 | Outpatient (CLI) | payer MEDICARE, BC ==
[~2024-02-09] MED LIST changes: +GABA-1172 PO; -GABA-282 PO
== END ==
LOC: M PLAIMG 12:57
PROVIDERS: ATTEND Nurse Practitioner Family
DX: D84.9 Immunodeficiency, unspecified (principal)

== ENCOUNTER 2024-02-29 10:36 | Day surgery (SDC) | payer MEDICARE, BC ==
[~2024-02-29] VITALS: Ht 157.5 cm; Wt 73.8 kg
[~2024-02-29 10:36] MED LIST changes: +AMLO2.5T3 PO; +ARNU1INH3 INH; +ECOT81TA5 PO; +IBAN150T6 PO; +LR 1,000 ML IV SCH; +PRED10PA PO; +THERTAB52 PO
[2024-02-29] MEDS ORDERED: MIDAZOLAM INJ 2MG/2ML VIAL As Ordered ONE (12:42)
[2024-02-29] MEDS ORDERED: fentaNYL 100 MCG/2 ML INJECTION As Ordered ONE (12:42)
[2024-02-29] MEDS: ATROPINE SULFATE 1% OPHTH SOLN 2ML BTL OD SCH (12:59)
[2024-02-29] MEDS: TETRACAINE 0.5% OPHTH SOLN 4ML OD SCH (12:59)
[2024-02-29] MEDS: PHENYLEPHRINE 2.5% OPHTH SOL 2ML OD SCH (12:59)
[2024-02-29] MEDS: FLURBIPROFEN 0.03% OPHTH SOLN 2.5 ML OD SCH (12:59)
[2024-02-29] MEDS: LIDOCAINE 1% SDV 5ML VIAL As Ordered ONE (13:53)
[2024-02-29] MEDS: MOXIFLOXACIN 0.6MG/0.4ML INTRAOCULAR SYRINGE As Ordered ONE (13:53)
[2024-02-29 14:23] VITALS: BP 138/69; TEMP 97.5; O2SAT 96
== END 2024-02-29 14:39 | disposition home or self-care (01) ==
LOC: M SDC 10:36
PROVIDERS: ATTEND Ophthalmology
DX: H25.11 Age-related nuclear cataract, right eye (principal); I10 Essential (primary) hypertension; J45.909 Unspecified asthma, uncomplicated; M32.9 Systemic lupus erythematosus, unspecified; E78.00 Pure hypercholesterolemia, unspecified; I25.2 Old myocardial infarction; K21.9 Gastro-esophageal reflux disease without esophagitis; M79.7 Fibromyalgia; Z79.899 Other long term (current) drug therapy; Z79.51 Long term (current) use of inhaled steroids; Z79.82 Long term (current) use of aspirin; Z85.3 Personal history of malignant neoplasm of breast; Z98.84 Bariatric surgery status; Z88.1 Allergy status to other antibiotic agents; Z88.8 Allergy status to other drugs, medicaments and biological substances; Z91.040 Latex allergy status
CPT/HCPCS: 66984; J2250; J3010; V2788

== ENCOUNTER → 2024-03-23 | Outpatient (REF) | payer MEDICARE, BC ==
[~2024-03-23] MED LIST changes: +IBAN150T10 PO; -IBAN150T6 PO; -LR 1,000 ML IV SCH
[2024-03-25 15:52] LABS: BERMUDA GRASS IGE < 0.10 kU/L (<0.10); BIRCH IGE < 0.10 kU/L (<0.10); COMMON RAGWEED SHORT IGE < 0.10 kU/L (<0.10); D001 IGE D PTERONYSSINUS < 0.10 kU/L (<0.10); D002-IGE D FARINAE < 0.10 kU/L (<0.10); E001-IGE CAT DANDER 0.38 kU/L (<0.10); E005-IGE DOG DANDER 0.14 kU/L (<0.10); ELM IGE < 0.10 kU/L (<0.10); I006 IGE COCKROACH < 0.10 kU/L (<0.10); IMMUNOGLOBULIN E FOR ALLERGENS 53 kU/L (<OR=114); M002 IGE CLADOSPORIUM HERBARU < 0.10 kU/L (<0.10); M003 IGE ASPERGILLUS FUMIGATU < 0.10 kU/L (<0.10); M006 IGE ALTERNIA ALTERNATA < 0.10 kU/L (<0.10); M1-PENICILLIUM NOTATUM < 0.10 kU/L (<0.10); MOUSE URINE IGE < 0.10 kU/L (<0.10); MUGWORT IGE < 0.10 kU/L (<0.10); OAK IGE < 0.10 kU/L (<0.10); ROUGH PIGWEED IGE < 0.10 kU/L (<0.10); SHEEP SORREL IGE < 0.10 kU/L (<0.10); SYCAMORE IGE < 0.10 kU/L (<0.10); T001-IGE MAPLE BOX ELDER < 0.10 kU/L (<0.10); T006-IGE MOUNTAIN CEDAR < 0.10 kU/L (<0.10); T014 COTTONWOOD IGE < 0.10 kU/L (<0.10); TIMOTHY GRASS IGE 0.34 kU/L (<0.10); WALNUT TREE IGE < 0.10 kU/L (<0.10); WHITE ASH IGE < 0.10 kU/L (<0.10); WHITE MULBERRY IGE < 0.10 kU/L (<0.10)
== END ==
LOC: M LAB REF 16:33
PROVIDERS: ATTEND Family Medicine
DX: J45.40 Moderate persistent asthma, uncomplicated (principal)

== ENCOUNTER → 2024-04-28 | Outpatient (REF) | payer MEDICARE, BC | LOC: M LAB REF 17:12 | PROVIDERS: ATTEND Otolaryngology | DX: J35.8 Other chronic diseases of tonsils and adenoids (principal) ==

== ENCOUNTER → 2024-04-28 | Outpatient (REF) | payer MEDICARE, BC | LOC: M LAB REF 17:20 | PROVIDERS: ATTEND Physician Assistant | DX: D04.39 Carcinoma in situ of skin of other parts of face (principal) ==

== ENCOUNTER 2024-05-06 16:31 | Emergency (ER) | payer MEDICARE, BC ==
[~2024-05-06] VITALS: Ht 160 cm; Wt 71.7 kg
[2024-05-06 16:35] VITALS: TEMP 98
[2024-05-06] MEDS ORDERED: ALTA1CAP3 PO (16:55)
[2024-05-06 17:29] LABS: BASO # 0.1 10^3/uL (0.0-0.2); BASO % 0.9 % (0.0-1.0); EOS # 0.2 10^3/uL (0.0-0.5); EOS % 2.6 % (0.0-3.0); HEMATOCRIT 40.7 % (36.0-47.0); HEMOGLOBIN 12.8 g/dl (12.0-15.5); LYMPH # 1.9 10^3/uL (1.5-5.0); LYMPH % 23.8 % (24.0-44.0); MEAN CORPUSCULAR HEMOGLOBIN 25.5 pg (27.0-33.0); MEAN CORPUSCULAR HGB CONC 31.4 g/dl (32.0-36.5); MEAN CORPUSCULAR VOLUME 81.1 fl (80.0-96.0); MONO # 0.8 10^3/uL (0.0-0.8); MONO % 10.6 % (2.0-8.0); NEUTROPHILS # 4.8 10^3/uL (1.5-8.5); NEUTROPHILS % 61.7 % (36.0-66.0); PLATELET COUNT, AUTOMATED 278 10^3/uL (150-450); RED BLOOD COUNT 5.02 10^6/uL (4.00-5.40); WHITE BLOOD COUNT 7.8 10^3/uL (4.0-10.0)
[2024-05-06 17:44] LABS: LIPASE 30 U/L (12-53)
[2024-05-06 17:46] LABS: ALBUMIN 3.3 G/DL (3.2-5.2); ALKALINE PHOSPHATASE 61 U/L (35-104); ALT/SGPT 24 U/L (7.0-40); AST/SGOT 31 U/L (<34); BILIRUBIN,DIRECT < 0.1 MG/DL (<0.4); BILIRUBIN,TOTAL 0.2 MG/DL (0.3-1.2); BLOOD UREA NITROGEN 12 MG/DL (9-23); CALCIUM LEVEL 8.8 MG/DL (8.3-10.6); CARBON DIOXIDE LEVEL 20 MMOL/L (20-31); CHLORIDE LEVEL 108 MMOL/L (98-107); CPK CREATINE PHOSPHOKINASE 160 U/L (34-145); CREATININE FOR GFR 0.65 MG/DL (0.55-1.30); GLOMERULAR FILTRATION RATE > 60.0 (>39); GLUCOSE, FASTING 100 MG/DL (74-106); POTASSIUM SERUM 4.2 MMOL/L (3.5-5.1); SODIUM LEVEL 139 MMOL/L (136-145); TOTAL PROTEIN 6.6 G/DL (5.7-8.2)
[2024-05-06] MEDS ORDERED: ISOVUE-370 76% 100ML VIAL As Ordered ONE (17:47)
[2024-05-06 18:49] LABS: CPK CREATINE PHOSPHOKINASE 155 U/L (34-145)
[2024-05-06 19:03] LABS: CK-MB VALUE MASS < 1.0 NG/ML (<3.6); MB/CK RELATIVE INDEX 0.64 (< OR =4)
[2024-05-06 19:21] LABS: CK-MB VALUE MASS < 1.0 NG/ML (<3.6); MB/CK RELATIVE INDEX 0.62 (< OR =4)
[2024-05-06 19:25] LABS: FREE T4 1.22 NG/DL (0.89-1.76)
[2024-05-06 19:26] LABS: THYROID STIMULATING HORMONE 1.702 uIU/ML (0.55-4.78)
[2024-05-06] MEDS ORDERED: PRED20TA PO (20:03)
[2024-05-06 20:15] VITALS: BP 137/66; O2SAT 96
[2024-05-06] MEDS: predniSONE 20 MG TAB PO ONE (20:19)
== END 2024-05-06 20:28 | disposition home or self-care (01) ==
LOC: M ED 16:31
DX: R07.89 Other chest pain (principal); R06.00 Dyspnea, unspecified; I25.2 Old myocardial infarction; I10 Essential (primary) hypertension; E78.5 Hyperlipidemia, unspecified; K21.9 Gastro-esophageal reflux disease without esophagitis; I25.119 Atherosclerotic heart disease of native coronary artery with unspecified angina pectoris; Z88.1 Allergy status to other antibiotic agents; Z88.8 Allergy status to other drugs, medicaments and biological substances; Z79.51 Long term (current) use of inhaled steroids; Z79.52 Long term (current) use of systemic steroids; Z79.4 Long term (current) use of insulin; Z79.810 Long term (current) use of selective estrogen receptor modulators (SERMs); Z79.899 Other long term (current) drug therapy
CPT/HCPCS: 36415; 71045; 71275; 80047; 80048; 80076; 82550; 82553; 83690; 83880; 84439; 84443; 84484; 85025; 87040; 87486; 87581; 87633; 87798; 93005; 93041; 94760; 99285; J7512; Q9967

== ENCOUNTER → 2025-01-17 | Outpatient (REF) | payer MEDICARE, BC ==
[~2025-01-17] MED LIST changes: +ALTA1CAP3 PO; -EZET10TA21 PO; +EZET10TA57 PO; -IBUP-1022 PO; +IBUP600T42 PO
[2025-01-17 15:00] LABS: IRON (FE) 39.0 UG/DL (50-170); PERCENT SATURATION 9.3 % (13.2-45.0)
== END ==
LOC: M LAB REF 11:04
PROVIDERS: ATTEND Family Medicine
DX: R71.8 Other abnormality of red blood cells (principal)

== ENCOUNTER → 2025-02-14 | Outpatient (CLI) | payer MEDICARE, BC | LOC: M WHC 08:48 | DX: R92.8 Other abnormal and inconclusive findings on diagnostic imaging of breast (principal); Z98.890 Other specified postprocedural states ==

== ENCOUNTER → 2025-02-16 | Outpatient (CLI) | payer MEDICARE, BC ==
[2025-02-16 13:05] VITALS: TEMP 98.3
[2025-02-16 14:10] VITALS: BP 144/86; O2SAT 100
== END ==
LOC: M WHCPRO 12:41
PROVIDERS: ATTEND Surgery
DX: C50.411 Malignant neoplasm of upper-outer quadrant of right female breast (principal); R92.8 Other abnormal and inconclusive findings on diagnostic imaging of breast

== ENCOUNTER → 2025-03-10 | Outpatient (REF) | payer MEDICARE, BC ==
[~2025-03-10] MED LIST changes: +FLUTISP; +JARD1TAB; +SERT25TA21
== END ==
LOC: M LAB REF 14:20
PROVIDERS: ATTEND Family Medicine
DX: C50.919 Malignant neoplasm of unspecified site of unspecified female breast (principal); Z85.3 Personal history of malignant neoplasm of breast

== ENCOUNTER → 2025-03-16 | Outpatient (CLI) | payer MEDICARE, BC ==
[~2025-03-16] MED LIST changes: +ISOVUE-370 76% 100 ML VIAL ONE
== END ==
LOC: M PLAIMG 13:02
DX: C50.919 Malignant neoplasm of unspecified site of unspecified female breast (principal); I25.10 Atherosclerotic heart disease of native coronary artery without angina pectoris; K76.0 Fatty (change of) liver, not elsewhere classified; K80.20 Calculus of gallbladder without cholecystitis without obstruction; N28.1 Cyst of kidney, acquired; M16.0 Bilateral primary osteoarthritis of hip; M47.815 Spondylosis without myelopathy or radiculopathy, thoracolumbar region; I70.0 Atherosclerosis of aorta
CPT/HCPCS: 71260; 74177; Q9967

== ENCOUNTER → 2025-04-04 | Outpatient (CLI) | payer MEDICARE, BC ==
[~2025-04-04] MED LIST changes: -ISOVUE-370 76% 100 ML VIAL ONE; +MELA10TA22 PO; -RA M10TA PO
== END ==
LOC: M RAD 16:12
PROVIDERS: ATTEND Internal Medicine Medical Oncology
DX: C50.911 Malignant neoplasm of unspecified site of right female breast (principal)